=== PATIENT | female | born 1955 | race Caucasian/White ===

== ENCOUNTER 2021-12-13 10:16 | Outpatient (CLI) | payer MEDICARE, MEDICAID, SELFPAY ==
--- NOTE | 2021-12-13 10:45 | USCV_ITS ---
Yokasta Shields Age: 66 Gender: F : 1955 Exam Date: 12/13/2021 10:47 Ordering Phys: Breanne Clayton Technologist: Nathan Esquivel Exam Location: [facility] [place] Indication: Risk Factors: Previous Vascular Surgery: Right Brachial BP: / Left Brachial BP: / Right Left Velocity (cm/s) Spectral Plaque Velocity (cm/s) Spectral Plaque Syst/Diast Broadening Syst/Diast Broadening 87.10/ 23.20 Prox CCA 85.20 / 20.90 103.60/22.10 Hetro Mid CCA 94.20 / 20.90 Hetro 101.40/23.20 Hetro Distal CCA 97.10 / 17.90 Hetro 80.70/ 19.00 Hetro Prox ICA 219.60/ 60.60 Ezequiel 117.30/19.90 Hetro Mid ICA 176.10/ 34.10 Ezequiel 284.00/68.60 Distal ICA 88.90 / 23.70 Hetro 102.50 ECA 140.50 2.74 ICA/CCA 2.26 Antegrade Vertebral Antegrade 34.90/ 9.70 cm/s 51.10/ 9.70 cm/s Tri Subclavian Tri 149.5 153.8 0 0 FINDINGS Moderate heterogeneous plaques at the right bifurcation and distal internal carotid artery. Moderate to heavy heterogeneous plaques of the left bifurcation and proximal ICA Intimal thickening and minimal plaques in the common carotid arteries bilaterally Antegrade flow in the vertebral arteries bilaterally Normal Doppler velocities in the subclavian arteries bilaterally CONCLUSIONS Moderate to heavy heterogeneous plaques of the left bifurcation and proximal ICA with velocity elevations, consistent with 50 to 69% stenosis. Moderate heterogeneous plaques at the right bifurcation, suggesting less than 50% stenosis. Elevated velocity in the distal right internal carotid artery is suggestive of hemodynamically significant stenosis. No significant stenosis in the external carotid, subclavian and vertebral arteries, based on the above findings Consider CTA, to better evaluate the distal internal carotid artery on the right side. No similar previous studies are available for comparison Dr Nick Hoffman MD [facility] (Electronically Signed) Final Date: 14 December 2021 09:49 S
== END 2021-12-13 10:17 | disposition home or self-care (01) ==
LOC: RAD 10:19
PROVIDERS: PCP Registered Nurse; Visit Provider Registered Nurse
DX: Z93.0 Tracheostomy status (principal); Z85.21 Personal history of malignant neoplasm of larynx; I65.23 Occlusion and stenosis of bilateral carotid arteries
CPT/HCPCS: 93880

== ENCOUNTER 2022-01-12 10:48 | Outpatient (CLI) | payer MEDICARE, MEDICAID, SELFPAY ==
--- NOTE | 2022-01-12 11:02 | MM_ITS ---
WS: [id number] BILATERAL SCREENING 3D TOMOSYNTHESIS DIGITAL MAMMOGRAM WITH CAD HISTORY: SCREENING COMPARISON: 12/16/2018 and 02/14/2016 Bilateral CC and MLO views submitted. Computer aided detection analyzed. Breast composition: There are scattered areas of fibroglandular density. No suspicious masses, microc alcifications or architectural distortion. Benign intramammary lymph nodes. Extensive calcifications throughout each breast. These are benign calcifications. Some of these calcifications are rodlike and others are round. MM/[place] [id number] IMPRESSION: BI-RADS: 2-Benign FOLLOW UP: 1 Year Follow-up
== END 2022-01-12 10:49 | disposition home or self-care (01) ==
LOC: RADSHAW 10:54
PROVIDERS: PCP Registered Nurse; Visit Provider Registered Nurse
DX: Z12.31 Encounter for screening mammogram for malignant neoplasm of breast (principal)
CPT/HCPCS: 77063; 77067

== ENCOUNTER 2022-01-23 07:46 | Outpatient (CLI) | payer MEDICARE, MEDICAID, SELFPAY ==
--- NOTE | 2022-01-23 07:58 | FL_ITS ---
WS: [email or web address] ESOPHAGRAM TECHNIQUE: Double contrast examination was performed with thin and thick barium. Upright and [place] imag es were obtained. CLINICAL INFORMATION: LARYNX MALIGNANT NEOPLASM COMPARISON: None. FINDINGS: Segment of smooth stricturing at the level of the hypopharynx also seen on the neck CT. Pat ulous upstream dilatation of the pharynx. Segment of smooth stricturing extends over approximately 3. 0 cm. Minimal luminal diameter measures approximately 5 to 6 mm. Swallowing: Normal oropharyngeal phase. Patulous pharynx with pooling of contrast about the stricture . Esophagus: Mild esophageal dysmotility with slightly delayed emptying. Hypopharyngeal stricture descr ibed above. Gastroesophageal reflux: Small esophageal hiatal hernia. No reflux in the upright imaging. Supine katelyn ging not performed. Surgical clips in the neck from prior laryngectomy. Aortic calcification. Tracheostomy. Fluoroscopy time: 2.7 # of spot films: 149 FL/FL barium swallow [id number] IMPRESSION: 1. Segmental smooth stricturing at the level of the hypopharynx with patulous upstream dilatation of the pharynx. Pooling of barium in the pharynx. 2. Area of stricture extends over approximately 3 to 3.5 cm with a minimal lum inal diameter of 5 to 6 mm 3. Small esophageal hiatal hernia.
--- NOTE | 2022-01-23 07:59 | CT_ITS ---
WS: [id number] CT NECK TECHNIQUE: Contrast-enhanced CT of the neck with coronal and sagittal reformatted images. CLINICAL INFORMATION: MALIGNANT NEOPLASM OF LARYNX COMPARISON: None. DLP: 289.[address] scans at [facility] use at least one of these dose optimization techniques: automated e xposure control; mA and/or kV adjustment per patient size (includes targeted exams where dose is matc hed to clinical indication); or iterative reconstruction. FINDINGS:Patulous distention of the pharynx. Associated stricture in the hypopharynx just above the t horacic inlet. Stricture at approximately the C5-C6 level. This will be discussed on the barium swall ow. This is above the level of the tracheostomy. Prior postoperative changes total laryngectomy with tracheoesophageal puncture voice prosthesis. 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 Intracranial vas cular calcification. Normal parotid glands. Prior postoperative changes resection of the submandibul ar glands bilaterally. Normal posterior nasopharynx. Normal parapharyngeal fat. Mild mucosal thickeni ng paranasal sinuses. Mastoid air cells are well aerated. Cavernous carotid calcification. Tongue bas e appears normal. Aortic calcification visualized in the upper mediastinum. Calcification of the great vessel origins p artially evaluated with moderate stenosis at the innominate origin. Moderate stenosis at the LEFT com mon carotid artery origin. Moderate to severe stenosis just distal to the LEFT subclavian origin. CT/CT neck w con* [id number] IMPRESSION: 1. Patulous distention of the pharynx. Associated stricture in the hypopharynx just above the thoracic inlet. Stricture at approximately the C5-C6 level. Thi s will be discussed on the barium swallow. 2. Prior postoperative changes total laryngectomy with tracheoesophageal punct ure voice prosthesis 3. Calcification with stenosis involving the great vessels described above. 4. Prior postoperative changes RIGHT CEA. Moderate stenosis LEFT proximal ICA. This can be further evaluated with CTA. 5. 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
[2022-01-23 08:56] LABS: Blood Urea Nitrogen 6 mg/dL (8-23)
== END 2022-01-23 07:47 | disposition home or self-care (01) ==
LOC: RAD 07:49
PROVIDERS: PCP Registered Nurse; Visit Provider Specialist
DX: C32.9 Malignant neoplasm of larynx, unspecified (principal)
CPT/HCPCS: 70491; 74220; 82565; 84520; Q9967

== ENCOUNTER 2022-02-08 08:02 | Outpatient (CLI) | payer MEDICARE, MEDICAID, SELFPAY ==
--- NOTE | 2022-02-08 08:15 | USCV_ITS ---
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 Features suggestive of mild peripheral artery disease on the left side with possible occlusion of the posterior tibial artery 2. Features suggestive of moderate peripheral arterial disease in the right side 3. The abnormal PVR waveforms suggesting severe peripheral artery disease. Cannot exclude technical problems with the study Consider peripheral angiogram, if clinically indicated Dr Nick Hoffman MD [facility] (Electronically Signed) Final Date: 11 Feb 2022 21:40 S
--- NOTE | 2022-02-08 08:45 | USCV_ITS ---
Yokasta Shields Age: 66 Gender: F : 1955 Exam Date: 02/08/2022 08:39 Ordering Phys: Snow Giang MD ([email or web address]) Technologist: RODRÍGUEZ Exam Location: [facility] [place] Indication: Pure hypercholesterolemia BP: 152 / 80 HR: 71 Rhythm: Sinus Technical Quality: Adequate MEASUREMENTS (Male / Female) Normal Values 2D ECHO LV Diastolic Diameter PLAX 4.5 cm 4.2 - 5.9 / 3.9 - 5.3 cm LV Systolic Diameter PLAX 3.5 cm IVS Diastolic Thickness 0.9 cm 0.6 - 1.0 / 0.6 - 0.9 cm IVS Systolic Thickness 1.4 cm LVPW Diastolic Thickness 1.4 cm 0.6 - 1.0 / 0.6 - 0.9 cm LVPW Systolic Thickness 1.8 cm RV Chamber Size 2.3 cm LVOT Diameter 2.0 cm LV Ejection Fraction 2D Teich 47.6 % LV Ejection Fraction MOD 2C 46.9 % LV Ejection Fraction 2C AL 47.4 % LA Diameter 2.9 cm Aorta at Sinotubular Diameter 2.5 cm M-MODE Aortic Annulus Diameter 2.7 cm LA Ao Ratio MM 1.1 MV E Point Septal Separation 0.8 cm DOPPLER AV Peak Velocity 128.0 cm/s LVOT Peak Velocity 86.0 cm/s AV Area Cont Eq vti 2.1 cm squared AV Area Cont Eq pk 2.2 cm squared MV Area PHT 4.3 cm squared Mitral E to A Ratio 0.7 MV E' Velocity 56.0 cm/s Mitral E to MV E' Ratio 22.3 Mitral E to LV E' Lateral Ratio 20.5 Mitral E to LV E' Septal Ratio 24.3 TR Peak Velocity 261.0 cm/s TR Peak Gradient 27.2 mmHg PV Peak Velocity 93.0 cm/s RV Acceleration Time 0.1 s RV Ejection Time 0.4 s RV AcT/ET 0.2 FINDINGS Left Ventricle Normal left ventricular cavity size, wall thickness and low normal left ventricular systolic function. Left ventricular ejection fraction is estimated at 55 %. No regional wall motion abnormalities. Grade II diastolic dysfunction, moderately elevated filling pressures. Right Ventricle Normal right ventricular size and systolic function. RVSP could not be calculated due to incomplete tricuspid regurgitation velocity profile. Right Atrium Normal right atrial size. Left Atrium Mildly increased left atrial size. Mitral Valve Moderate mitral annular calcification. No mitral valve stenosis. Trace mitral valve regurgitation. Aortic Valve Mildly thickened trileaflet aortic valve. No aortic valve stenosis. No aortic valve regurgitation. Tricuspid Valve Structurally normal tricuspid valve. Trace tricuspid valve regurgitation. Pulmonic Valve Pulmonic valve not well visualized. No pulmonary valve stenosis. Trace pulmonary valve regurgitation. Pericardium No pericardial effusion. Aorta Normal size aortic root and proximal ascending aorta. CONCLUSIONS 1. This is a technically difficult study. Optison was used per protocol. 2. Normal left ventricular cavity size, wall thickness and low normal left ventricular systolic function. Left ventricular ejection fraction is estimated at 55 %. No regional wall motion abnormalities. Grade II diastolic dysfunction, moderately elevated filling pressures. 3. No prior similar studies to compare. Snow Giang MD (Electronically Signed) Final Date: 12 Feb 2022 17:32 S
[2022-02-08] MEDS: perflutren protein-a microsphr 0.22 mg/mL SDV 3 mL IV (09:28)
== END 2022-02-08 08:03 | disposition home or self-care (01) ==
LOC: RAD 08:04
PROVIDERS: PCP Registered Nurse; Visit Provider Internal Medicine Cardiovascular Disease
DX: E78.00 Pure hypercholesterolemia, unspecified (principal); I25.10 Atherosclerotic heart disease of native coronary artery without angina pectoris; Z95.5 Presence of coronary angioplasty implant and graft
CPT/HCPCS: 93923; C8929

== ENCOUNTER → 2022-02-20 13:53 | Outpatient (BNVA) | payer MEDICARE, MEDICAID, SELFPAY | PROVIDERS: PCP Registered Nurse; Visit Provider Internal Medicine Cardiovascular Disease | DX: I73.9 Peripheral vascular disease, unspecified (principal); I25.10 Atherosclerotic heart disease of native coronary artery without angina pectoris; M79.606 Pain in leg, unspecified; E78.00 Pure hypercholesterolemia, unspecified; E78.5 Hyperlipidemia, unspecified; I10 Essential (primary) hypertension; I65.29 Occlusion and stenosis of unspecified carotid artery; E11.9 Type 2 diabetes mellitus without complications; Z87.891 Personal history of nicotine dependence; Z79.84 Long term (current) use of oral hypoglycemic drugs | CPT/HCPCS: 99214 ==

== ENCOUNTER 2022-05-17 13:46 | Outpatient (CLI) | payer MEDICARE, MEDICAID, SELFPAY ==
--- NOTE | 2022-05-17 14:00 | CTR_ITS ---
PROCEDURE INFORMATION: Exam: CTA Abdominal Aorta and Bilateral Lower Extremities (Run-off) With Contrast Exam date and time: 05/17/2022 3:18 PM Age: 66 years old Clinical indication: Condition or disease; Peripheral vascular disease; Patient HX: HX of throat cancer; Additional info: Pvd TECHNIQUE: Imaging protocol: Computed tomographic angiography of the of the abdominal aorta, pelvis and bilateral lower extremities with contrast. 3D rendering (Not supervised by radiologist): MIP and/or 3D reconstructed images were created by the technologist. Radiation optimization: All CT scans at this facility use at least one of these dose optimization techniques: automated exposure control; mA and/or kV adjustment per patient size (includes targeted exams where dose is matched to clinical indication); or iterative reconstruction. Contrast material: OMNI 350; Contrast volume: 95 ml; Contrast route: INTRAVENOUS (IV); COMPARISON: No relevant prior studies available. RADIATION DOSE METRICS: Total DLP (mGy-cm): 929.26 FINDINGS: Aorta: Poor contrast opacification of the arterial system. Prominent atherosclerotic disease in the abdominal aorta which is nonaneurysmal. Significant atherosclerotic disease in the distal abdominal aorta causing moderate to severe stenosis. Celiac trunk and mesenteric arteries: Atherosclerotic disease at the origin of the celiac trunk causing short segment moderate to severe stenosis. Atherosclerotic disease at the origin and in the proximal superior mesenteric artery causing moderate stenosis. Renal arteries: Diminutive right upper and lower pole renal arteries with probable stenosis at the origin. The inferior mesenteric artery is patent. Right iliac arteries: No occlusion or significant stenosis. Right femoral/popliteal arteries: Multifocal atherosclerotic disease in the mid right SFA causing [id number] stenosis (series 6, image 253 and 261). Calcified atherosclerotic disease in the right above knee popliteal artery causing short segment severe stenosis versus occlusion (series 6, image 305). Additional multifocal moderate stenosis in the right above knee popliteal artery. Right infrapopliteal arteries: Limited evaluation of the below knee arteries due to poor contrast opacification. Probable multifocal stenosis in the right posterior tibial artery. Probable primary runoff by the right anterior tibial artery. Left iliac arteries: No occlusion or significant stenosis. Left femoral/popliteal arteries: Occlusion of the proximal left superficial femoral artery with distal reconstitution in the left above knee popliteal artery. Multifocal atherosclerotic disease in the left above knee popliteal artery causing probable moderate stenosis. Left infrapopliteal arteries: Poor contrast opacification of the below knee arteries of the left lower extremity. Probable multifocal stenosis in the left posterior tibial artery. Probable primary runoff by the left anterior tibial artery. Lungs: The visualized lung bases demonstrate no focal airspace opacification or pleural effusion. Heart: Coronary artery calcifications noted. Liver: The liver is normal in size and contour. Diaphragm: Moderate hiatal hernia. Gallbladder and bile ducts: The gallbladder is surgically absent. Pancreas: The pancreas appears normal. Spleen: The spleen appears normal. Adrenal glands: Normal. No mass. Kidneys and ureters: Scarring and atrophy in the upper pole the right kidney. Mildly prominent right-sided extrarenal pelvis. No renal or ureteral stones identified. Kidneys enhance symmetrically. No signs of urinary obstruction. Stomach and bowel: Irregularity along the anterior margin of the stomach extending through the anterior abdominal wall hernia possibly related to prior percutaneous gastrostomy. The small bowel loops are not abnormally dilated. The large bowel loops are not abnormally dilated. Colonic diverticulosis without signs of acute diverticulitis. Appendix: The appendix appears normal. Urinary bladder: Unremarkable. No mass. Reproductive: The uterus is surgically absent. Intraperitoneal space: No ascites. No significant fluid collection. Lymph nodes: No abdominal or pelvic lymphadenopathy. Bones/joints: Degenerative disc disease at L5-S1. Soft tissues: Postsurgical changes in the anterior abdominal wall. It anterior abdominal wall mesh noted. 5.3 cm fat containing supraumbilical hernia. CT/CT angio abd aorta runof [id number] IMPRESSION: 1. Poor contrast opacification of the arterial system, limiting evaluation. 2. Significant atherosclerotic disease in the distal abdominal aorta causing moderate to severe stenosis. 3. Stenosis at the origin of the celiac, SMA, and renal arteries. 4. Short segment severe stenosis versus occlusion in the right above knee popliteal artery. 5. Occlusion of the proximal left superficial femoral artery with distal reconstitution in the left above knee popliteal artery. 6. Poor contrast opacification of the below knee arteries of the lower extremities. Probable multifocal stenosis in the right and left posterior tibial arteries. Probable primary runoff by the anterior tibial artery bilaterally. 7. Moderate hiatal hernia. 8. Colonic diverticulosis without signs of acute diverticulitis.
[2022-05-17 15:09] LABS: Blood Urea Nitrogen 9 mg/dL (8-23)
[2022-05-17] MEDS: iohexol 350 mg/mL 100 mL Btl IV (15:32)
== END 2022-05-17 13:47 | disposition home or self-care (01) ==
LOC: RAD 13:47
PROVIDERS: PCP Registered Nurse; Visit Provider Internal Medicine Cardiovascular Disease
DX: I73.9 Peripheral vascular disease, unspecified (principal); R68.89 Other general symptoms and signs; I77.1 Stricture of artery; K44.9 Diaphragmatic hernia without obstruction or gangrene; K57.90 Diverticulosis of intestine, part unspecified, without perforation or abscess without bleeding
CPT/HCPCS: 75635; 82565; 84520

== ENCOUNTER 2022-05-21 09:56 | Outpatient (CLI) | payer MEDICARE, MEDICAID, SELFPAY ==
--- NOTE | 2022-05-21 10:12 | CT_ITS ---
WS: [email or web address] CTA NECK TECHNIQUE: Contrast enhanced CTA of the neck with coronal and sagittal reformatted images and maximum intensity projection (MIP) images. NASCET criteria utilized. CLINICAL INFORMATION: BILATERAL CAROTID ARTERY STENOSIS COMPARISON: Ultrasound December 13, 2021 DLP: 270.[address] scans at [facility] use at least one of these dose optimization techniques: automated e xposure control; mA and/or kV adjustment per patient size (includes targeted exams where dose is matc hed to clinical indication); or iterative reconstruction. FINDINGS:Prior postoperative changes total laryngectomy with tracheoesophageal puncture voice prosthe sis. Prior postoperative changes resection of the submandibular glands bilaterally. LEFT dominant vertebral artery. Smaller but patent RIGHT vertebral artery. Mild stenosis of the LEFT subclavian artery origin. Mild stenosis in the LEFT mid subclavian artery. Mild stenosis at the LEFT common carotid artery and innominate artery origins. RIGHT subclavian artery is patent. RIGHT: Prior postoperative changes RIGHT CEA. Eccentric calcified plaque in the distal RIGHT common c arotid artery with approximately 50% stenosis. No significant RIGHT ICA stenosis. RIGHT ICA is patent to the skull base. Distal RIGHT ICA is patent. LEFT: Mild stenosis LEFT common carotid artery origin. LEFT common carotid artery is patent. Calcifie d atheromatous plaque LEFT carotid bulb extending into the ICA with stenosis measuring approximately 60-65%. IMPRESSION: 1. Prior postoperative changes RIGHT CEA. Eccentric calcified plaque in the distal RIGHT common fontenot tid artery with approximately 50% stenosis. No significant RIGHT ICA stenosis. 2. LEFT ICA stenosis 60-65%. 3. LEFT dominant vertebral artery. Smaller but patent RIGHT vertebral artery.
[2022-05-21] MEDS: iohexol 350 mg/mL 100 mL Btl IV (10:41)
== END 2022-05-21 09:57 | disposition home or self-care (01) ==
LOC: RAD 09:57
PROVIDERS: PCP Registered Nurse; Visit Provider Internal Medicine Cardiovascular Disease
DX: I65.23 Occlusion and stenosis of bilateral carotid arteries (principal)
CPT/HCPCS: 70498

== ENCOUNTER 2022-06-08 15:11 | Outpatient (CLI) | payer MEDICARE, MEDICAID, SELFPAY ==
--- NOTE | 2022-06-08 | XR_ITS ---
WS: [email or web address] Chest 2 views, 06/08/2022 Clinical Data: ESOPHAGEAL OBSTRUCTION/PERSONAL HX OF MALIGNANT NEOPLASM Comparison: None. Findings: No nodules, masses or effusions are seen. The heart is enlarged. The pulmonary vascularity is not increased. No pneumonia or pneumothorax is seen. The aortic arch and descending thoracic aorta show calcification and tortuosity. There is a coronary artery stent. There are clips in the neck fro m laryngeal surgery. XR/XR chest 2V* [id number] Impression: Atherosclerosis and cardiomegaly.
== END 2022-06-08 15:12 | disposition home or self-care (01) ==
LOC: RAD 15:13
PROVIDERS: PCP Registered Nurse; Visit Provider Specialist
DX: K22.2 Esophageal obstruction (principal); I51.7 Cardiomegaly; I70.90 Unspecified atherosclerosis
CPT/HCPCS: 71046

== ENCOUNTER 2022-07-09 10:36 | Outpatient (CLI) | payer MEDICARE, MEDICAID, SELFPAY ==
--- NOTE | 2022-07-09 10:45 | FL_ITS ---
WS: [email or web address] Exam: FL barium swallow [id number] Date/Time of Exam: 07/09/2022 10:50 AM Reason For Exam: OTHER DYSPHAGIA/PERSON HX OF MALIGNANT NEOPLASM OF LARYNX Fluoroscopy time: 2min [id number] minutes # of spot films: 15 Comparison 01/23/2022. Swallowing function at the level of the oropharynx was normal. Again noted is smooth stricturing of t he cervical esophagus from approximately C5-C7. The remaining esophagus is patent with normal motilit y. Intraluminal esophageal filling defect at approximately the level of T3 is secondary to tracheoeso phageal puncture voice prosthesis. Small hiatal hernia noted. No reflux observed during fluoroscopy. Postoperative changes in the neck secondary to laryngectomy. Patulous dilatation of the pharynx. This is unchanged. FL/FL barium swallow [id number] IMPRESSION: 1. Smooth stricturing of the cervical esophagus from approximately C5-C7. Maxim al luminal AP diameter about 4 mm. This extends for a length of about 2 cm. 2. Grossly normal esophageal motility. No sign of the intraluminal esophageal m ass. 3. Intraluminal filling defect noted at approximately the level of T3 secondary to tracheoesophageal puncture voice prosthesis.
== END 2022-07-09 10:37 | disposition home or self-care (01) ==
PROVIDERS: PCP Registered Nurse; Visit Provider Specialist
DX: R13.19 Other dysphagia (principal); Z85.21 Personal history of malignant neoplasm of larynx
CPT/HCPCS: 74220

== ENCOUNTER 2022-07-12 08:34 | Outpatient (CLI) | payer MEDICARE, MEDICAID, SELFPAY ==
--- NOTE | 2022-07-12 08:42 | CT_ITS ---
WS: [email or web address] CT NECK WITH CONTRAST HISTORY: OTHER DYSPHAGIA/PERSONAL HX OF MALIGNANT NEOPLASM OF LARYNX TECHNIQUE: Contiguous 5 mm axial images are performed through the neck with intravenous contrast. Sag ittal and coronal reformats are also submitted. All CT scans at [facility] use at least one o f these dose optimization techniques: automated exposure control; mA and/or kV adjustment per patient size (includes targeted exams where dose is matched to clinical indication); or iterative reconstruc tion. CONTRAST: CONTRAST: Omnipaque 350, 95 mL. DLP: 265.06 mGy.cm COMPARISON: 01/23/2022. Prior barium swallow 07/09/2022. Patient is status post total laryngectomy. Also noted is a tracheoesophageal puncture voice prosthesi s which is unchanged in its position. As noted on a prior CT there is a high-grade stricture beginning in the region of the hypopharynx ext ending over a length of at least 3.5 cm. There is mild wall thickening but no progression since the p rior CT. These findings were also seen on a recent barium swallow examination. No recurrent enhancing mass is noted at the stricture site. The position of the voice prosthesis similar to the prior study . No new or enlarging cervical chain lymph nodes. No abnormal enhancement of the tongue base. Submandibular glands are absent. May have been surgically removed. Normal parotid glands. Parapharyngeal fat and the parapharyngeal spaces negative. Stenosis and calcifications noted involving the cervical carotid arteries. At least 50% stenosis bila terally at the bifurcations of the carotid arteries. Mild atherosclerotic disease aortic arch. Lung a pices are clear. Additional plaque, calcification and intimal thickening at the origin of the great v essels. At least moderate stenoses with no progression. Additional calcified plaque through the godfrey nous carotid arteries. Prior RIGHT carotid endarterectomy. Moderate degenerative disc disease throughout the cervical spine. No destructive bone lesions. Visualized portions of the skull base demonstrate no abnormalities. Orbits and globes are within norm al limits. No soft tissue masses. Visualized paranasal sinuses and mastoid air cells are normal. Lung apices are clear. CT/CT neck w con* [id number] IMPRESSION: 1. Status post total laryngectomy. No recurrent mass or abnormal enhancement o r lymphadenopathy. 2. 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 Stricture exte nds over a length of at least 3.5 cm. This was also noted on a recent barium sw allow examination of 07/09/2022. 3. Moderate bilateral cervical carotid artery stenoses.
[2022-07-12] MEDS: iohexol 350 mg/mL 100 mL Btl IV (09:18)
== END 2022-07-12 08:35 | disposition home or self-care (01) ==
LOC: RAD 08:34
PROVIDERS: PCP Registered Nurse; Visit Provider Specialist
DX: R13.19 Other dysphagia (principal); Z85.21 Personal history of malignant neoplasm of larynx; Z90.02 Acquired absence of larynx; I65.23 Occlusion and stenosis of bilateral carotid arteries
CPT/HCPCS: 70491

== ENCOUNTER → 2022-08-21 14:38 | Outpatient (BNVA) | payer MEDICARE, MEDICAID, SELFPAY | PROVIDERS: PCP Registered Nurse; Visit Provider Internal Medicine Cardiovascular Disease | DX: I25.10 Atherosclerotic heart disease of native coronary artery without angina pectoris (principal); M79.606 Pain in leg, unspecified; I73.9 Peripheral vascular disease, unspecified; E78.5 Hyperlipidemia, unspecified; I10 Essential (primary) hypertension; I65.29 Occlusion and stenosis of unspecified carotid artery; E11.9 Type 2 diabetes mellitus without complications; Z79.84 Long term (current) use of oral hypoglycemic drugs; Z87.891 Personal history of nicotine dependence | CPT/HCPCS: 99214 ==

== ENCOUNTER 2023-02-15 12:32 | Outpatient (CLI) | payer MEDICARE, MEDICAID, SELFPAY ==
--- NOTE | 2023-02-15 13:07 | MM_ITS ---
WS: [email or web address] BILATERAL 3D TOMOSYNTHESIS DIGITAL SCREENING MAMMOGRAPHY WITH CAD CLINICAL INFORMATION: SCREENING HISTORY: Screening mammogram. No current complaints. COMPARISON: 2021 TECHNIQUE: Bilateral CC and MLO views. FINDINGS: Scattered fibroglandular densities bilaterally. No suspicious focal mass, asymmetry, calcifications, or architectural distortion. No evidence of malignancy. Punctate calcifications. Secretory calcificat ions. Vascular calcification. MM/[place] [id number] IMPRESSION: BI-RADS: 2-Benign FOLLOW UP: 1 Year Follow-up Recommend return to annual screening mammography.
== END 2023-02-15 12:33 | disposition home or self-care (01) ==
LOC: RAD 12:36
PROVIDERS: PCP Registered Nurse; Visit Provider Family Medicine
DX: Z12.31 Encounter for screening mammogram for malignant neoplasm of breast (principal)
CPT/HCPCS: 77063; 77067

== ENCOUNTER → 2023-05-21 14:59 | Outpatient (BNVA) | payer MEDICARE, MEDICAID, SELFPAY | PROVIDERS: PCP Registered Nurse; Visit Provider Internal Medicine Cardiovascular Disease | DX: R07.9 Chest pain, unspecified (principal); I65.23 Occlusion and stenosis of bilateral carotid arteries; I25.10 Atherosclerotic heart disease of native coronary artery without angina pectoris; I73.9 Peripheral vascular disease, unspecified; E78.5 Hyperlipidemia, unspecified; I10 Essential (primary) hypertension; E11.9 Type 2 diabetes mellitus without complications; Z87.891 Personal history of nicotine dependence; R94.31 Abnormal electrocardiogram [ECG] [EKG] | CPT/HCPCS: 93005; 99214 ==

== ENCOUNTER 2023-06-03 09:46 | Outpatient (CLI) | payer MEDICARE, MEDICAID, SELFPAY ==
--- NOTE | 2023-06-03 10:45 | USCV_ITS ---
Yokasta Shields Age: 67 Gender: F : 1955 Exam Date: 06/03/2023 10:00 Ordering Phys: Snow Giang MD ([email or web address]) Technologist: REX Exam Location: [facility] [place] Indication: Stenosis Risk Factors: Previous Vascular Surgery: Right Brachial BP: / Left Brachial BP: / Right Left Velocity (cm/s) Spectral Plaque Velocity (cm/s) Spectral Plaque Syst/Diast Broadening Syst/Diast Broadening 94.80/ 29.80 Prox CCA 120.90/ 30.20 110.30/30.90 Mid CCA 93.00 / 26.10 100.40/31.00 Distal CCA 101.30/ 27.20 65.60/ 20.80 Prox ICA 129.90/ 34.20 64.40/ 19.00 Mid ICA 216.60/ 60.20 103.60/37.50 Distal ICA 149.60/ 38.50 106.90 ECA 217.30 0.94 ICA/CCA 1.79 Antegrade Vertebral Antegrade 19.40/ 8.50 cm/s 74.60/ 22.50 cm/s Tri Subclavian Tri 176.9 140.6 0 0 FINDINGS Comp /12/05 CONCLUSIONS Right ICA stenosis <50%. Moderate atheromatous plaque right carotid bulb/ICA. Left ICA stenosis 50-69%. Moderate atheromatous plaque left carotid bulb/ICA. Velocities similar to previous. Intimal thickening in the common carotid arteries and internal carotid arteries bilaterally. Normal antegrade Doppler flow noted in the right vertebral artery. Normal antegrade Doppler flow noted in the left vertebral artery. Shane Chávez MD (Electronically Signed) Final Date: 03 June 2023 11:44 S
== END 2023-06-03 09:47 | disposition home or self-care (01) ==
LOC: RAD 09:48
PROVIDERS: PCP Registered Nurse; Visit Provider Internal Medicine Cardiovascular Disease
DX: I65.23 Occlusion and stenosis of bilateral carotid arteries (principal)
CPT/HCPCS: 93880

== ENCOUNTER 2023-06-10 07:40 | Outpatient (CLI) | payer MEDICARE, MEDICAID, SELFPAY ==
[2023-06-10 08:17] VITALS: BMI 43.9
--- NOTE | 2023-06-10 09:01 | NMCV_ITS ---
NM tatiana perf SPECT r/s* [id number] Yokasta Shields Age: 67 Gender: F : 1955 Exam Date: 06/10/2023 09:01 Ordering Phys: Snow Giang MD ([email or web address]) Technologist: STEVE Vallejo Exam Location: [facility] Indications: CHEST PAIN, SHORTNESS OF BREATH, ATHEROSCLEROTIC HEART DISEASE STRESS TEST [facility] IMAGE PROTOCOL Rest/Stress 1 Lexiscan Day Radiopharmaceutical Dose (mCi) Administration Site Administered by Rest: Tc-99m 10.6 IV STEVE Olivares Sestamibi Stress:Tc-99m 32.4 IV STEVE Vallejo Sestamibi Rest: 10-Jun-2023 60 Discovery 630 Stress: 10-Jun-2023 30 Discovery 630 0.4mg Lexiscan. Supine position only as patient was unable to lay prone. SPECT RESULTS Technical Quality: Excellent Raw Data Analysis: Normal Image Corrections: No attenuation or motion correction applied Summed Stress Score: 5 Summed Rest Score: 0 Summed Difference Score: 5 PERFUSION FINDINGS Small sized perfusion abnormality of moderate severity of mid to apical inferior and mid inferolateral box on stress images. FUNCTIONAL RESULTS (calculated via Gated SPECT) Stress Image LV EF (%): 61 Stress EDV (mL):75 TID: 0.85 Stress ESV (mL):29 FUNCTIONAL FINDINGS: The left ventricle is normal in size. Transient Ischemia Dilatation of 0.85. The left ventricular ejection fraction is normal with a value of 61%. Possible mild hypokinesis of basal inferior wall. Normal end-diastolic and end-systolic volume. IMPRESSIONS 1. Small sized reversible perfusion abnormality of moderate severity of mid to apical inferior and mid inferolateral box. 2. This may represent small area of ischemia in right coronary artery/circumflex artery territory. 3. The left ventricular ejection fraction is normal with a value of 61%. Possible mild hypokinesis of basal inferior wall. 4. EKG portion of the study will be reported separately. Snow Giang MD (Electronically Signed) Final Date: 14 June 2023 12:49 S
--- NOTE | 2023-06-10 09:01 | ECG_ITS ---
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 Interpretive Statements NAME OF STUDY: LEXISCAN SESTAMIBI STRESS TEST INDICATION: Chest Pain PROCEDURE: At the baseline, the blood pressure was 194/82 mmHg, oxygen saturation 95% with a heart rate of 79 bpm. The electrocardiogram showed sinus rhythm, normal axis with nonspecific ST depression in lead III and aVF. The Lexiscan was infused over a period of 20 seconds. A total of 0.4 milligrams of Lexiscan was infused. The stress phase was continued for a total of 5 minutes. Heart rate at the end of the stress phase was 96 bpm, oxygen saturation 94% with a blood pressure 157/73 mmHg. The EKG at the peak infusion revealed no significant ST-T wave changes. Sestamibi was injected 20 seconds after the Lexiscan infusion. Blood pressure at the end of the recovery phase was 165/70 mmHg, oxygen saturation 94% with a heart rate of 95 beats per minute. CONCLUSION: 1. Normal EKG response to LexiScan infusion. 2. No LexiScan induced chest pain or cardiac arrhythmia. 3. Normal blood pressure and heart rate response. 4. Sestamibi/sestamibi perfusion scan pending; see separate report. Electronically Signed On 06-14-2023 13:34:14 CDT by Snow Giang M.D. [id number]
[2023-06-10] MEDS: regadenoson 0.4 Mg/5 ml Syringe IVP (09:49)
[2023-06-10 10:20] VITALS: BP 165/70; PULSE 95
== END 2023-06-10 07:41 | disposition home or self-care (01) ==
PROVIDERS: PCP Registered Nurse; Visit Provider Internal Medicine Cardiovascular Disease
DX: R07.9 Chest pain, unspecified (principal); R06.02 Shortness of breath; I25.10 Atherosclerotic heart disease of native coronary artery without angina pectoris
CPT/HCPCS: 36415; 78452; 93017; 96374; A9500; J2785

== ENCOUNTER → 2023-09-03 13:37 | Outpatient (BNVA) | payer MEDICARE, MEDICAID, SELFPAY | PROVIDERS: PCP Registered Nurse; Visit Provider Internal Medicine Cardiovascular Disease | DX: R07.9 Chest pain, unspecified (principal) | CPT/HCPCS: 99214 ==

== ENCOUNTER 2024-08-14 22:23 | Inpatient (IN) | payer MEDICARE, MEDICAID, SELFPAY ==
[2024-08-14 22:44] VITALS: BP 181/76; PULSE 81; RESP 19; TEMP 36.9; O2SAT 93
[2024-08-14 22:45] VITALS: BP 181/76; PULSE 80; RESP 29; O2SAT 92
[2024-08-14 23:00] VITALS: BP 181/76; PULSE 80; RESP 21; O2SAT 92
[2024-08-14 23:15] VITALS: PULSE 79
[2024-08-14] MEDS: metoprolol tartrate 1 mg/1 mL SDV 5 mL 5 MG IVP ×2 (23:16→23:22)
[2024-08-14] MEDS: heparin drip 25,000 UNIT/500 ML PREMIX 25 UNIT IV (23:19)
[2024-08-14] MEDS: nitroglycerin drip 50 MG/250 ML PREMIX IV (23:25)
[2024-08-14 23:30] VITALS: BP 167/83; PULSE 71; RESP 22; O2SAT 92
[2024-08-14 23:35] LABS: Troponin(5th) Baseline 8 ng/L (0-10)
[2024-08-15] VITALS (41 sets, daily range): BP systolic 82–208; BP diastolic 41–89; PULSE 68–79; RESP 15–28; TEMP 36.8–37.2; O2SAT 87–97
--- NOTE | 2024-08-15 00:07 | PM.HP ---
Providers/Chief Complaint Admitting Physician: Shane Barrow MD Primary Care Provider: Breanne Clayton Chief Complaint: Unstable Angina History of Present Illness Yokasta Shields is a 69 year old female with history of tobacco use stopped 8 years ago when she had ENT surgery for cancer and ended up with a trach. She has had multiple cardiac stents numbering 4 but last was 7 years ago she has never had a CABG. In the last months she has had postprandial pain some nausea and diarrhea she has had exertional chest pain relieved by rest or nitroglycerin. Her systems architect is Dr. Giang and has not seen a systems architect for some time. Today she was seen at the [place] emergency department and transferred here for chest pain rule out PA and unstable angina. Blood pressure initially good there became high also presenting a problem. Past medical history includes asthma, cervical cancer 2001 coronary artery disease, depression, diabetes, COPD, GERD, 4 cardiac stents, hypertension, hyperlipidemia, hypothyroidism, peripheral artery disease, head and neck cancer Past surgical history hysterectomy, cholecystectomy, carotid stent, throat surgery, colonoscopy 2021, tracheostomy with skin graft, EGD with dilation of the esophagus, Family history positive for coronary disease Social history lives with her brother. She wants full code she does not drink alcohol and quit smoking 8 years ago Allergies doxycycline Review of Systems Narrative: Difficult to obtain due to patient cannot talk and has to type out on her phone her communication She had chest pain on arrival which was worse but now down to 3/10 Medications/Allergies Home Medications Medication Instructions Recorded Confirmed Last Taken Type albuterol sulfate 2.5 mg/3 mL 2.5 mg inhalation Q4H PRN 11/21/21 Unknown History (0.083 %) solution for nebulization albuterol sulfate 90 mcg/actuation 2 puff inhalation Q6H PRN 11/21/21 Unknown History aerosol inhaler aspirin 81 mg tablet,delayed 81 mg PO DAILY 11/21/21 Unknown History release (Adult Low Dose Aspirin) carvedilol 6.25 mg tablet 6.25 mg PO BID 11/21/21 Unknown History cyclobenzaprine 5 mg tablet 5 mg PO DAILY PRN 11/21/21 Unknown History dexlansoprazole 60 mg 60 mg PO DAILY 11/21/21 Unknown History capsule,biphase delayed release (Dexilant) diclofenac sodium 1 % topical gel 2 g topical QID 11/21/21 Unknown History (Arthritis Pain (diclofenac)) fluoxetine 20 mg/5 mL (4 mg/mL) 20 mg PO DAILY 11/21/21 Unknown History oral solution gabapentin 100 mg capsule 100 mg PO DAILY 11/21/21 Unknown History glimepiride 2 mg tablet 2 mg PO DAILY 11/21/21 Unknown History hydroxyzine HCl 10 mg tablet 10 mg PO BID PRN 11/21/21 Unknown History ipratropium bromide 0.02 % 0.5 mg inhalation Q4H PRN 11/21/21 Unknown History solution for inhalation levothyroxine 112 mcg capsule 112 mcg PO DAILY 11/21/21 Unknown History meloxicam 15 mg tablet 15 mg PO DAILY 11/21/21 Unknown History montelukast 10 mg tablet 10 mg PO DAILY 11/21/21 Unknown History therapeutic multivitamin 5 ml PO DAILY 11/21/21 Unknown History atorvastatin 20 mg tablet 30 mg (1.5 x 20 mg) PO DAILY #135 03/14/22 Unknown Rx tabs cilostazol 100 mg tablet 100 mg PO BID #180 tabs 05/09/23 Unknown Rx dulaglutide 1.5 mg/0.5 mL mg SUBCUT 05/21/23 Unknown History subcutaneous pen injector (Trulicity) nitroglycerin 0.4 mg sublingual 0.4 mg sublingual Q5M PRN chest 06/04/23 Unknown Rx tablet pain #25 tabs isosorbide mononitrate 30 mg 30 mg PO DAILY #90 tabs 09/03/23 09/03/23 Unknown Rx tablet,extended release 24 hr losartan 25 mg tablet See Rx Instructions .Route 12/11/23 Unknown Rx .COMPLEX #90 tabs Allergies Allergy/AdvReac Type Severity Reaction Status Date / Time doxycycline Allergy Unknown unknown Verified 09/03/23 13:52 PFSH Acute PFSH: Medical History CAD (coronary artery disease) Diabetes mellitus HTN (hypertension) Hypercholesterolemia PAD (peripheral artery disease) Throat cancer Surgical History H/O hernia repair S/P coronary artery stent placement Social History Smoking and tobacco/nicotine status: former use of tobacco/nicotine Vitals/I&O/Wt Last Vital Signs Temp 98.4 F 08/14/24 22:44 Pulse 81 08/14/24 22:44 Resp 19 H 08/14/24 22:44 BP 181/76 08/14/24 22:44 Pulse Ox 93 08/14/24 22:44 Weight last 48 hrs Weight 88.224 kg Weight 88.042 kg Physical Exam Narrative: General Well-developed obese chronically ill-appearing female in no acute cardiopulmonary distress She is alert and pleasant and gives what appears to be correct history Neck she has a tracheostomy CV regular rate and rhythm Lungs poor air movement prolonged expiratory phase trace wheezes and trace basilar crackles Abdomen positive bowel sounds soft obese nontender Calves no tenderness cords or pretibial edema Mood and affect normal Data Other Labs: Labs from [place] white count 5.9 hematocrit 36 platelets 247 MCV 90 Sodium 135 potassium 3.7 BUN 6 creatinine 0.66 glucose 161 AST 10 bilirubin 0.3 D-dimer 0.58 normal for her age less than 0.60 Troponin 7 twice with no change CTA Chest: Radiologist's impression: No pneumonia pneumothorax, PE or dissection seen on CTA done at [place] A&P Assessment and plan (1) Chest pain: Cardiac enzymes essentially ruled out before she was sent here with 2 negative enzymes. She does have history and extensive vascular disease now with exertional chest pain consistent with unstable angina. I think she would benefit from noninvasive stress testing. (2) CAD (coronary artery disease): Last stent 7 years ago and patient with extensive vascular disease and a positive family history Will order high-sensitivity C-reactive protein and lipoprotein a (3) PAD (peripheral artery disease): Stable (4) HTN (hypertension): Losartan continued carvedilol additional dose ordered for tonight. If blood pressure is elevated would suggest increasing those medications Attestations Medical Necessity Statement*: Patient with hypertension and unstable angina. Will admit for plan noninvasive stress testing such as Lexiscan nuclear Coding Level of Care Code Acute Code for [facility] Diagnoses Chest pain R07.9 CAD (coronary artery disease) I25.10 PAD (peripheral artery disease) I73.9 HTN (hypertension) I10 Time Spent (min) 75
--- NOTE | 2024-08-15 00:51 | ECG_ITS ---
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 Measurements Intervals [place] Rate: 71 P: 60 MA: 190 QRS: 0 QRSD: 90 T: -2 QT: 412 QTc: 448 Interpretive Statements SINUS RHYTHM Compared to ECG 05/21/2023 15:02:57 Left ventricular hypertrophy no longer present T-wave abnormality no longer present Electronically Signed On 08-15-2024 13:47:36 CDT by Sheyla Louis M.D. [id number]
[2024-08-15] MEDS: ipratropium 0.5 mg/2.5 mL Neb INHALATION (00:59)
[2024-08-15] MEDS: albuterol 2.5 mg/3 mL Neb INHALATION ×2 (00:59→21:00)
[2024-08-15 01:49] LABS: Troponin 5 2HR 8.31 ng/L (0-10); Troponin 5 2HR Delta 0.31 ABS# (0-10)
[2024-08-15 01:51] LABS: Chol HDL Ratio 5.17 mg/dL (0.0-4.40); Cholesterol 150 mg/dL (0-200); HDL Cholesterol 29 mg/dL (60-100); LDL Cholesterol Calculated 95 mg/dL (50-129); LDL HDL Ratio 3.28 RATIO (0.00-3.22); Triglycerides 131 mg/dL (0-150)
[2024-08-15] MEDS: losartan 50 mg Tablet PO (01:53)
[2024-08-15 02:25] LABS: C Reactive Protein 16.2 mg/L (0.0-4.9)
[2024-08-15] MEDS: acetaminophen 325 mg Tablet 650 MG PO (04:28)
--- NOTE | 2024-08-15 04:55 | ECG_ITS ---
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 Measurements Intervals [place] Rate: 71 P: 49 TX: 204 QRS: -2 QRSD: 76 T: -1 QT: 408 QTc: 445 Interpretive Statements SINUS RHYTHM Compared to ECG 08/15/2024 00:51:02 No significant changes Electronically Signed On 08-15-2024 13:47:32 CDT by Sheyla Louis M.D. [id number]
[2024-08-15 05:54] LABS: Partial Thromboplastin Time 77.1 SECONDS (23.9-36.7)
[2024-08-15] MEDS: levothyroxine 112 mcg Tablet PO (06:12)
--- NOTE | 2024-08-15 08:27 | USCV_ITS ---
Yokasta Shields Age: 69 Gender: F : 1955 Exam Date: 08/15/2024 12:00 Ordering Phys: Gurpreet Benavides MD Technologist: Dajuan Ansari Exam Location: [facility] Indication: chest pain BP: 85 / 44 HR: 70 Rhythm: Sinus Technical Quality: Adequate MEASUREMENTS (Male / Female) Normal Values 2D ECHO LV Diastolic Diameter PLAX 5.1 cm 4.2 - 5.9 / 3.9 - 5.3 cm IVS Diastolic Thickness 1.0 cm 0.6 - 1.0 / 0.6 - 0.9 cm IVS Systolic Thickness 1.8 cm LVPW Diastolic Thickness 1.6 cm 0.6 - 1.0 / 0.6 - 0.9 cm LVPW Systolic Thickness 1.7 cm LVOT Diameter 2.1 cm LV Ejection Fraction 2D Teich 75.1 % LV Ejection Fraction MOD 4C 54.1 % LV Ejection Fraction MOD 2C 57.2 % LV Ejection Fraction 2C AL 59.5 % LA Diameter 3.9 cm RA Systolic Volume 4C AL 26.1 ml RA Systolic Volume 4C MOD 26.7 ml LA Sys Volume AL 40.4 cm cubed LA Sys Volume Index AL 21.0 cm cubed/m squared Aorta at Sinotubular Diameter 1.7 cm IVC Diameter 1.6 cm M-MODE LA Ao Ratio MM 1.3 AV Cusp Separation MM 1.5 cm DOPPLER AV Peak Velocity 138.0 cm/s LVOT Peak Velocity 74.0 cm/s AV Area Cont Eq vti 2.3 cm squared AV Area Cont Eq pk 1.9 cm squared MV Peak Velocity 151.0 cm/s MV Area PHT 4.3 cm squared Mitral E to A Ratio 0.7 TV Peak Velocity 215.0 cm/s TR Peak Velocity 242.0 cm/s TR Peak Gradient 23.4 mmHg TR Mean Velocity 179.0 cm/s TR Mean Gradient 14.4 mmHg TR Velocity Time Integral 51.9 cm PV Peak Velocity 90.0 cm/s RV Ejection Time 0.3 s FINDINGS Left Ventricle Normal left ventricular size, systolic function and wall thickness, with no regional wall motion abnormalities. Estimated LVEF normal 65%. Right Ventricle Normal right ventricular size and systolic function. Right Atrium Normal right atrial size. Left Atrium Mildly increased left atrial size. Mitral Valve Thickened mitral valve. Mild mitral valve regurgitation. Aortic Valve Thickened aortic valve. No aortic valve stenosis. Tricuspid Valve Structurally normal tricuspid valve. Trace tricuspid valve regurgitation. Pulmonic Valve Pulmonic valve not well visualized. Trace pulmonary valve regurgitation. Pericardium No pericardial effusion. Aorta Normal size aortic root and proximal ascending aorta. IVC Normal inferior vena cava. CONCLUSIONS Normal left ventricle systolic function. Normal LVEF 65%. Normal right ventricular size and systolic function. Mild mitral regurgitation. No other significant valvular abnormality noted. Normal right heart and pulmonary artery systolic pressure. Sheyla Louis MD (Electronically Signed) Final Date: 15 August 2024 13:30 S
[2024-08-15] MEDS: montelukast sodium 10 mg Tablet PO (08:33)
[2024-08-15] MEDS: glimepiride 2 mg Tablet PO (08:33)
[2024-08-15] MEDS: gabapentin 100 mg Capsule PO (08:34)
[2024-08-15] MEDS: aspirin 81 mg EC Tablet PO (08:34)
[2024-08-15] MEDS: isosorbide mononitrate ER 30 mg Tablet PO (08:34)
[2024-08-15] MEDS: atorvastatin 40 mg Tablet 30 MG PO (08:34)
[2024-08-15] MEDS: pantoprazole DR 40 mg Tablet PO (08:34)
[2024-08-15] MEDS: carvedilol 6.25 mg Tablet PO ×2 (08:34→18:13)
[2024-08-15] MEDS: cilostazol 100 mg Tablet PO ×2 (08:34→18:13)
[2024-08-15 08:50] LABS: Basophils # 0.1 10^3/uL (0.0-0.1); Basophils % 0.9 %; Eosinophils # 0.1 10^3/uL (0.0-0.8); Eosinophils % 2.4 %; Hematocrit 35.9 % (36-47); Lymphocytes # 1.2 10^3/uL (0.8-4.8); Lymphocytes % 22.1 %; Mean Corpuscular HGB Conc 31.8 g/dL (30-55); Mean Corpuscular Volume 94.5 fl (85-98); Mean Platelet Volume 9.8 fL (7.4-10.4); Monocytes # 0.4 10^3/uL (0.2-0.9); Monocytes % 7.1 %; Neutrophils # 3.59 10^3/uL (1.8-7.7); Neutrophils % 67.1 %; Nucleated Red Blood Cells % 0 %; Platelet Count 243 10^3/cmm (157-399); Red Cell Distribution Width 13.8 % (12.1-15.1); White Blood Count 5.35 10^3/uL (3.29-11.43)
[2024-08-15 09:00] LABS: Alanine Aminotransferase < 5 U/L (0-33); Albumin Level 2.9 g/dL (3.5-5.2); Alkaline Phosphatase 55 U/L (35-105); Anion Gap 14.4 (5-19); Aspartate Amino Transferase 10 U/L (0-32); Blood Urea Nitrogen 5 mg/dL (8-23); Calcium 7.5 mg/dL (8.5-10.5); Carbon Dioxide 24 mmol/L (22-29); Chloride 100 mmol/L (98-107); Chol HDL Ratio 5.42 mg/dL (0.0-4.40); Cholesterol 141 mg/dL (0-200); Globulin 2.7 g/dL (1.3-4.6); Glomerular Filtration Rate 122.7 mL/min (90-130); Glucose 141 mg/dL (65-115); HDL Cholesterol 26 mg/dL (60-100); LDL Cholesterol Calculated 84 mg/dL (50-129); LDL HDL Ratio 3.23 RATIO (0.00-3.22); Osmolality Calculated 280 mOsm/kg (285-295); Potassium 3.4 mmol/L (3.5-5.1); Sodium 135 mmol/L (136-145); Total Bilirubin 0.4 mg/dL (0.15-1.2); Total Protein 5.6 g/dL (6.6-8.7); Triglycerides 157 mg/dL (0-150)
[2024-08-15 09:04] LABS: Estmated Average Glucose 177; Hemoglobin A1C 7.8 % (4.0-6.0)
[2024-08-15 09:17] LABS: Thyroid Stimulating Hormone 17.15 uIU/mL (0.27-4.20)
[2024-08-15] MEDS: FUROsemide 10 mg/mL SDV 4mL 40 MG IVP (09:17)
[2024-08-15] MEDS: fluoxetine 20 mg Capsule PO (09:20)
--- NOTE | 2024-08-15 10:33 | PC.NURSE ---
Addendum entered by Billie Gusman RN 08/15/24 10:40: Patient denies any symptoms at this time. Will continue to monitor Original Note: Stopped nitro drip due to decreasing BP
[2024-08-15 11:19] LABS: Glucose Point of Care 171 mg/dL (70-110)
[2024-08-15] MEDS: insulin lispro 100 unit/1 mL SUBCUT ×3 (12:08→20:55)
--- NOTE | 2024-08-15 12:34 | PC.NURSE ---
Addendum entered by Billie Gusman RN 08/15/24 12:39: Received telephone orders to stop nitro and to start Hydralazine 10mg PO every 8 hours. Original Note: Patient's BP increasing. Latest is 170/75. Informed Dr Benavides. Restarted Nitro drip.
[2024-08-15] MEDS: hyDRALAzine 10 mg Tablet PO ×2 (12:52→20:53)
[2024-08-15 13:06] LABS: Partial Thromboplastin Time 62.5 SECONDS (23.9-36.7)
--- NOTE | 2024-08-15 13:42 | P.PN_ITS ---
Subjective 2 Subjective: Patient was seen this morning, she is alert to person, to place, she follows commands, she is receiving a breathing treatment through her trach collar, denies any chest pain, no shortness of breath, does have 1+ pitting edema Vitals/I&O/Wt Last Vital Signs Temp 98.3 F 08/15/24 11:15 Pulse 74 08/15/24 12:32 Resp 25 H 08/15/24 12:32 BP 170/75 08/15/24 12:32 Pulse Ox 94 08/15/24 12:32 O2 Del Method CAG, Trach Collar 08/15/24 08:51 O2 Flow Rate 12 08/15/24 08:39 FiO2 35 08/15/24 08:51 08/14/24 08/15/24 08/15/24 22:59 06:59 14:59 Intake Total 196.383 / 196.383 17.95 / 17.95 Balance 196.383 / 196.383 17.95 / 17.95 Weight last 48 hrs Weight 88.224 kg Weight 88.224 kg Weight 88.224 kg Weight 88.042 kg Physical Exam 2 Const: COMMON NORMALS: no acute distress and patient oriented x3 Resp: COMMON NORMALS: normal respiratory effort, No retractions and No use of accessory muscles AUSCULTATION: crackles Cardio: COMMON NORMALS: regular rate, regular rhythm, S1 normal heart sound present and S2 normal heart sound present RATE: regular rate RHYTHM: r egular rhythm HEART SOUNDS: S1 normal heart sound present and S2 normal heart sound present GI: COMMON NORMALS: Normal to inspection, nondistended, normoactive bowel sounds present and non-tender Neuro: COMMON NORMALS: patient oriented x3 Psych: COMMON NORMALS: mental status grossly normal Data 08/15/24 01:12 08/15/24 05:10 A&P Assessment and plan (1) Chest pain: - Currently no active chest pain -Continue aspirin, statin, Coreg -Serial EKGs, serial troponins, telemetry monitoring -Cardiac echo CONCLUSIONS Normal left ventricle systolic function. Normal LVEF 65%. Normal right ventricular size and systolic function. Mild mitral regurgitation. No other significant valvular abnormality noted. Normal right heart and pulmonary artery systolic pressure. -Continue heparin drip -Plan on cardiac stress test on Saturday (2) CAD (coronary artery disease): Last stent 7 years ago and patient with extensive vascular disease and a positive family history Will order high-sensitivity C-reactive protein and lipoprotein a (3) PAD (peripheral artery disease): Stable (4) HTN (hypertension): - Has hypertensive urgency -Will wean off nitroglycerin drip -Start hydralazine 10 3 times daily (5) CHF exacerbation: - Systolic diastolic CHF exacerbation -1+ pitting edema -BMP, chest x-ray -1 dose IV Lasix 40 mg IV -Will consider evening dose based on clinical progress (6) Diabetes mellitus: (7) Hypertensive urgency: Attestations 2 Medical Necessity Statement*: Patient requires hospitalization for chest pain, CHF exacerbation Diagnoses Chest pain R07.9 CAD (coronary artery disease) I25.10 PAD (peripheral artery disease) I73.9 HTN (hypertension) I10 CHF exacerbation I50.9 Diabetes mellitus E11.9 Hypertensive urgency I16.0
--- NOTE | 2024-08-15 13:47 | XRR_ITS ---
PROCEDURE INFORMATION: Exam: XR Chest Exam date and time: 08/15/2024 2:19 PM Age: 69 years old Clinical indication: Shortness of breath; Additional info: SOB TECHNIQUE: Imaging protocol: Radiologic exam of the chest. Views: 1 view. COMPARISON: CR XR chest 2V* [id number] 06/08/2022 3:49 PM FINDINGS: Tubes, catheters and devices: Surgical clips overlie the thoracic inlet region. Lungs: Mild bilateral perihilar and basilar interstitial lung opacities, suggesting pulmonary edema versus infiltrates. The peripheral lungs are otherwise clear. No consolidation. Pleural spaces: No pleural effusion. No pneumothorax. Heart/Mediastinum: Coronary arterial stent identified. Cardiac silhouette appears mildly enlarged. Vasculature: Moderate atherosclerotic calcification demonstrated within the aorta. Bones/joints: Diffusely decreased bone density. Generalized bony degenerative changes. Soft tissues: This study is limited by patient's body habitus. XR/XR chest 1V portable [id number] IMPRESSION: 1. Mild enlarged cardiac silhouette. 2. Mild interstitial pulmonary edema versus infiltrates. 3. Degenerative and postsurgical changes are demonstrated, as described above.
[2024-08-15 14:24] LABS: NT Pro B Type Natriuretic Pept 448 pg/mL (0-125)
[2024-08-15 17:12] LABS: Glucose Point of Care 147 mg/dL (70-110)
[2024-08-15 19:44] LABS: Partial Thromboplastin Time 65.6 SECONDS (23.9-36.7)
[2024-08-15 20:32] LABS: Glucose Point of Care 175 mg/dL (70-110)
[2024-08-15] MEDS: heparin drip 25,000 UNIT/500 ML PREMIX 23 UNIT IV (20:57)
[2024-08-16] VITALS (13 sets, daily range): BP systolic 108–151; BP diastolic 56–67; PULSE 71–84; RESP 16–22; TEMP 36.5–36.9; O2SAT 90–96
[2024-08-16 00:51] LABS: Basophils % 0.7 %; Eosinophils # 0.2 10^3/uL (0.0-0.8); Eosinophils % 3.5 %; Hematocrit 32.8 % (36-47); Lymphocytes % 20.8 %; Mean Corpuscular HGB Conc 32.6 g/dL (30-55); Mean Corpuscular Hemoglobin 30.2 pg (27-33); Mean Corpuscular Volume 92.7 fl (85-98); Mean Platelet Volume 9.2 fL (7.4-10.4); Monocytes # 0.4 10^3/uL (0.2-0.9); Monocytes % 8.3 %; Neutrophils # 3.02 10^3/uL (1.8-7.7); Neutrophils % 66.3 %; Nucleated Red Blood Cells % 0 %; Platelet Count 202 10^3/cmm (157-399); Red Blood Count 3.54 10^6/uL (3.85-5.65); Red Cell Distribution Width 13.6 % (12.1-15.1); White Blood Count 4.56 10^3/uL (3.29-11.43)
[2024-08-16 01:07] LABS: Alanine Aminotransferase < 5 U/L (0-33); Albumin Level 3.2 g/dL (3.5-5.2); Alkaline Phosphatase 56 U/L (35-105); Anion Gap 14.5 (5-19); Aspartate Amino Transferase 10 U/L (0-32); Blood Urea Nitrogen 7 mg/dL (8-23); Calcium 7.9 mg/dL (8.5-10.5); Carbon Dioxide 27 mmol/L (22-29); Chloride 106 mmol/L (98-107); Globulin 2.2 g/dL (1.3-4.6); Glomerular Filtration Rate 83.2 mL/min (90-130); Glucose 133 mg/dL (65-115); Osmolality Calculated 298 mOsm/kg (285-295); Potassium 3.5 mmol/L (3.5-5.1); Sodium 144 mmol/L (136-145); Total Bilirubin 0.3 mg/dL (0.15-1.2); Total Protein 5.4 g/dL (6.6-8.7)
[2024-08-16 01:14] LABS: Partial Thromboplastin Time 71.4 SECONDS (23.9-36.7)
[2024-08-16 01:22] LABS: NT Pro B Type Natriuretic Pept 358 pg/mL (0-125)
[2024-08-16] MEDS: hyDRALAzine 10 mg Tablet PO ×3 (06:02→20:46)
[2024-08-16] MEDS: levothyroxine 112 mcg Tablet PO (06:02)
[2024-08-16 06:25] LABS: Glucose Point of Care 132 mg/dL (70-110)
[2024-08-16 07:18] LABS: Partial Thromboplastin Time 64.2 SECONDS (23.9-36.7)
[2024-08-16] MEDS: isosorbide mononitrate ER 30 mg Tablet PO (08:43)
[2024-08-16] MEDS: fluoxetine 20 mg Capsule PO (08:43)
[2024-08-16] MEDS: gabapentin 100 mg Capsule PO (08:43)
[2024-08-16] MEDS: aspirin 81 mg EC Tablet PO (08:43)
[2024-08-16] MEDS: losartan 50 mg Tablet PO (08:44)
[2024-08-16] MEDS: atorvastatin 40 mg Tablet 30 MG PO (08:44)
[2024-08-16] MEDS: montelukast sodium 10 mg Tablet PO (08:44)
[2024-08-16] MEDS: carvedilol 6.25 mg Tablet PO ×2 (08:44→18:03)
[2024-08-16] MEDS: pantoprazole DR 40 mg Tablet PO (08:44)
[2024-08-16] MEDS: cilostazol 100 mg Tablet PO ×2 (08:44→18:02)
--- NOTE | 2024-08-16 10:35 | ECG_ITS ---
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
[2024-08-16] MEDS: FUROsemide 10 mg/mL SDV 2mL 20 MG IVP (10:56)
[2024-08-16] MEDS: potassium chloride ER 20 mEq Tablet 40 MEQ PO (10:56)
[2024-08-16 11:53] LABS: Glucose Point of Care 201 mg/dL (70-110)
[2024-08-16] MEDS: insulin lispro 100 unit/1 mL SUBCUT ×2 (12:12→20:46)
[2024-08-16 12:45] LABS: Partial Thromboplastin Time 51.6 SECONDS (23.9-36.7)
--- NOTE | 2024-08-16 13:48 | P.PN_ITS ---
Subjective 2 Subjective: Patient was seen this morning, sitting up beside the bed, no chest pain overnight, does report feeling a bit short of breath, no significant fevers, denies any chills, Vitals/I&O/Wt Last Vital Signs Temp 98.2 F 08/16/24 11:16 Pulse 76 08/16/24 11:16 Resp 20 H 08/16/24 11:16 BP 136/67 08/16/24 11:16 Pulse Ox 96 08/16/24 11:16 O2 Del Method Trach Collar 08/16/24 11:16 O2 Flow Rate 10 08/15/24 21:00 FiO2 35 08/16/24 09:01 08/15/24 08/16/24 08/16/24 23:59 06:59 14:59 Intake Total 600 / 600 Output Total Balance 600 / 600 Weight last 48 hrs Weight 87.362 kg Weight 87.362 kg Weight 88.224 kg Weight 88.224 kg Weight 88.224 kg Weight 88.042 kg Physical Exam 2 Const: COMMON NORMALS: no acute distress and patient oriented x3 Neck/C-Spine: OTHER: Tracheostomy site, looks clean and dry, Resp: COMMON NORMALS: normal respiratory effort, No retractions, No use of accessory muscles and clear to auscultation bilaterally AUSCULTATION: clear to auscultation bilaterally Cardio: COMMON NORMALS: regular rate, regular rhythm, S1 normal heart sound present and S2 normal heart sound present RATE: regular rate RHYTHM: r egular rhythm HEART SOUNDS: S1 normal heart sound present and S2 normal heart sound present GI: COMMON NORMALS: Normal to inspection, nondistended, normoactive bowel sounds present and non-tender Extremity: NARRATIVE EXTREMITY EXAM: Nonpitting edema Neuro: COMMON NORMALS: patient oriented x3 Psych: COMMON NORMALS: mental status grossly normal Data 08/16/24 00:31 08/16/24 00:31 A&P Assessment and plan (1) Chest pain: - Currently no active chest pain -Continue aspirin, statin, Coreg -Serial EKGs, serial troponins, telemetry monitoring -Cardiac echo CONCLUSIONS Normal left ventricle systolic function. Normal LVEF 65%. Normal right ventricular size and systolic function. Mild mitral regurgitation. No other significant valvular abnormality noted. Normal right heart and pulmonary artery systolic pressure. -Continue heparin drip -Plan on cardiac stress test tomorrow, n.p.o. midnight (2) CAD (coronary artery disease): Last stent 7 years ago and patient with extensive vascular disease and a positive family history Will order high-sensitivity C-reactive protein and lipoprotein a (3) PAD (peripheral artery disease): Stable (4) HTN (hypertension): - Has hypertensive urgency -Will wean off nitroglycerin drip -Start hydralazine 10 3 times daily (5) CHF exacerbation: - Systolic diastolic CHF exacerbation - nonpitting edema -Chest x-ray shows mild interstitial pulm edema versus infiltrates -1 dose IV Lasix 20 mg IV -Will consider evening dose based on clinical progress (6) Diabetes mellitus: Low-dose sliding scale (7) Hypertensive urgency: (8) Tracheostomy in place: - Tracheostomy in place -Does complain of mucus production from tracheostomy but not on more than usual ? Chest x-ray showing mild interstitial pulm edema versus infiltrates ? CRP, Pro-Ezequiel (9) Throat cancer: (10) Elevated TSH: Check T3, T4 Plan Spoke to patient, spoke to nursing staff Attestations 2 Medical Necessity Statement*: Patient requires hospitalization, for chest pain, elevated TSH, chest x-ray showing infiltrates, CHF, T3, T4, IV diuresis, and puberty, for cardiac cirrhosis tomorrow morning Diagnoses Chest pain R07.9 CAD (coronary artery disease) I25.10 PAD (peripheral artery disease) I73.9 HTN (hypertension) I10 CHF exacerbation I50.9 Diabetes mellitus E11.9 Hypertensive urgency I16.[address] Z93.0 Throat cancer C14.0 Elevated TSH R79.89
[2024-08-16 14:40] LABS: Free T4 Free Thyroxine 0.76 ng/dL (0.82-1.77); Procalcitonin 0.06 ng/mL (0-0.5); T3 Free 1.7 PG/ML (2.0-4.4)
[2024-08-16 14:50] LABS: C Reactive Protein 24.1 mg/L (0.0-4.9)
[2024-08-16 16:52] LABS: Glucose Point of Care 134 mg/dL (70-110)
[2024-08-16] MEDS: heparin drip 25,000 UNIT/500 ML PREMIX 25 UNIT IV (18:03)
[2024-08-16 18:33] LABS: Partial Thromboplastin Time 73.4 SECONDS (23.9-36.7)
[2024-08-16 20:33] LABS: Glucose Point of Care 200 mg/dL (70-110)
[2024-08-17] VITALS (28 sets, daily range): BP systolic 68–171; BP diastolic 48–118; PULSE 68–92; RESP 15–32; TEMP 36.6–37; O2SAT 90–98
[2024-08-17 00:06] LABS: Partial Thromboplastin Time 46.7 SECONDS (23.9-36.7)
[2024-08-17] MEDS: heparin 5,000 unit/mL INJ 1 mL IVP ×2 (00:27→21:46)
[2024-08-17] MEDS: levothyroxine 112 mcg Tablet PO (05:34)
[2024-08-17] MEDS: hyDRALAzine 10 mg Tablet PO ×2 (05:34→12:34)
[2024-08-17 06:32] LABS: Glucose Point of Care 188 mg/dL (70-110)
[2024-08-17 07:11] LABS: Basophils % 0.6 %; Eosinophils # 0.2 10^3/uL (0.0-0.8); Eosinophils % 3.7 %; Hematocrit 32.6 % (36-47); Lymphocytes % 19.9 %; Mean Corpuscular HGB Conc 32.2 g/dL (30-55); Mean Corpuscular Hemoglobin 29.9 pg (27-33); Mean Corpuscular Volume 92.9 fl (85-98); Mean Platelet Volume 9.2 fL (7.4-10.4); Monocytes # 0.4 10^3/uL (0.2-0.9); Monocytes % 7.8 %; Neutrophils # 3.29 10^3/uL (1.8-7.7); Neutrophils % 67.4 %; Nucleated Red Blood Cells % 0 %; Platelet Count 210 10^3/cmm (157-399); Red Blood Count 3.51 10^6/uL (3.85-5.65); Red Cell Distribution Width 13.8 % (12.1-15.1); White Blood Count 4.88 10^3/uL (3.29-11.43)
[2024-08-17 07:32] LABS: Alanine Aminotransferase 7 U/L (0-33); Albumin Level 3.1 g/dL (3.5-5.2); Alkaline Phosphatase 51 U/L (35-105); Anion Gap 12.8 (5-19); Aspartate Amino Transferase 18 U/L (0-32); Blood Urea Nitrogen 7 mg/dL (8-23); Calcium 7.9 mg/dL (8.5-10.5); Carbon Dioxide 26 mmol/L (22-29); Chloride 101 mmol/L (98-107); Creatinine Clr Calc Pharmacy 92.9666; Globulin 2.5 g/dL (1.3-4.6); Glomerular Filtration Rate 99.4 mL/min (90-130); Glucose 132 mg/dL (65-115); Osmolality Calculated 282 mOsm/kg (285-295); Potassium 3.8 mmol/L (3.5-5.1); Sodium 136 mmol/L (136-145); Total Bilirubin 0.3 mg/dL (0.15-1.2); Total Protein 5.6 g/dL (6.6-8.7)
[2024-08-17 07:36] LABS: Partial Thromboplastin Time 80.5 SECONDS (23.9-36.7)
[2024-08-17 07:40] LABS: NT Pro B Type Natriuretic Pept 90 pg/mL (0-125)
[2024-08-17] MEDS: regadenoson 0.4 Mg/5 ml Syringe IVP (09:25)
--- NOTE | 2024-08-17 09:48 | PC.CHAP ---
Pastoral Care Encounter/Spiritual Assessment Type of Contact [] Declined cabinet installer visit [] Patient/Family/Request visit [] Outpatient visit [] Follow-up visit [] Physician referral [] Code/Alert [x] Routine visit [] Staff referral [] Actively dying [x] Patient sleeping [] Family support [] [] Out of room [] Palliative care [] [] Receiving care in room [] Pre-surgical visit [] Trauma [] Long length of stay [] ICU visit [] Other: Relational/Emotional Strength [] Patient feels connected with others/family/visitors/staff [] Distress [] Loneliness/isolation [] Abandonment Spirituality of Patient [] Person of Afia [] Attends Faith of their Afia [] Believes in Prayer [] Reads Bible or Yazidism materials [] There are Spiritual issues to be addressed Manager Lighting Interventions [x] Prayer [] Active listening [] Non-anxious presence [] Spiritual/emotional support [] Crisis/trauma care [] Spiritual counseling [] Bereavement support [] Provided bereavement packet [] Provided Bible/devotional materials [] Provided toy/stuffed animal, coloring book to patient or family member [] Provided Communion [] Anointing/[place] [] Salvation [] Completed spiritual assessment [] Other: Impact on Illness or Injury [] Angry [] Fearful [] Anxious [] Often cries [] Exhaustion [] Unable to work [] Unable to attend christianity [] Unable to walk/stand [] Unable to read [] Unable to drive [] Unable to eat/drink [] Unable to sleep [] Unable to be with family [] Patient intubated [] Other: Summary Time spent with patient
--- NOTE | 2024-08-17 10:35 | NMCV_ITS ---
NM tatiana perf SPECT r/s* [id number] Yokasta Shields Age: 69 Gender: F : 1955 Exam Date: 08/17/2024 10:35 Ordering Phys: Gurpreet Benavides MD Technologist: STEVE Lawson Exam Location: [facility] Indications: cp STRESS TEST Please see separate stress test report in [facility] for full findings IMAGE PROTOCOL Rest/Stress 1 Lexiscan Day Radiopharmaceutical Dose (mCi) Administration Site Administered by Rest: Tc-99m 9.6 IV Mary Pennington SENIOR MICROS[employer]FT CONSULTANT Stress:Tc-99m 29.1 IV Mary Pennington, SENIOR MICROSOFT CONSULTANT Rest: 08/17/2024 60 Discovery 630 Stress: 08/17/2024 30 Discovery 630 0.4mg Lexiscan. Supine position only as patient was unable to lay prone. SPECT RESULTS Technical Quality: Good Raw Data Analysis: Normal Image Corrections: No attenuation or motion correction applied Summed Stress Score: 1 Summed Rest Score: 0 Summed Difference Score: 1 PERFUSION FINDINGS Medium sized area of fixed perfusion defect noted in mid inferior wall which showed medium to large area of moderate reversibility suggestive of old myocardial infarction surrounded by swetha-infarct ischemia. FUNCTIONAL RESULTS (calculated via Gated SPECT) Stress Image LV EF (%): 78 Stress EDV (mL):55 TID: 0.79 Stress ESV (mL):12 FUNCTIONAL FINDINGS: There is normal left ventricular systolic function. IMPRESSIONS Medium sized area of old myocardial infarction in the mid inferior wall surrounded by moderate to large area of medium to large area of moderate swetha- infarct ischemia. This is abnormal stress test. EKG segment will be documented separately. Raúl Spicer MD (Electronically Signed) Final Date: 17 August 2024 15:08 S
[2024-08-17] MEDS: atorvastatin 40 mg Tablet 30 MG PO (10:55)
[2024-08-17] MEDS: pantoprazole DR 40 mg Tablet PO (10:55)
[2024-08-17] MEDS: carvedilol 6.25 mg Tablet PO (10:56)
[2024-08-17] MEDS: isosorbide mononitrate ER 30 mg Tablet PO (10:56)
[2024-08-17] MEDS: losartan 50 mg Tablet PO (10:57)
[2024-08-17] MEDS: aspirin 81 mg EC Tablet PO (10:57)
[2024-08-17] MEDS: gabapentin 100 mg Capsule PO (11:00)
[2024-08-17] MEDS: fluoxetine 20 mg Capsule PO (11:01)
[2024-08-17] MEDS: montelukast sodium 10 mg Tablet PO (11:02)
[2024-08-17] MEDS: cilostazol 100 mg Tablet PO ×2 (11:02→16:58)
[2024-08-17] MEDS: nitroglycerin 0.4 mg sublingual Tablet SUBLINGUAL (11:15)
[2024-08-17 11:51] LABS: Glucose Point of Care 151 mg/dL (70-110)
[2024-08-17] MEDS: insulin lispro 100 unit/1 mL SUBCUT ×3 (12:34→21:46)
[2024-08-17 13:47] LABS: Glucose Point of Care 196 mg/dL (70-110)
[2024-08-17 13:52] LABS: Partial Thromboplastin Time 47.8 SECONDS (23.9-36.7)
--- NOTE | 2024-08-17 14:00 | ECG_ITS ---
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
[2024-08-17] MEDS: acetaminophen 325 mg Tablet 650 MG PO (14:02)
[2024-08-17] MEDS: sodium chloride 0.9% 250 ML IV (14:26)
--- NOTE | 2024-08-17 14:55 | PC.NURSE ---
Tylenol given for headache.
--- NOTE | 2024-08-17 14:55 | PC.NURSE ---
Nitro pill given sublingually at 1115 for patient complaint of chest pain. Just one tablet given, patient communicated pain was better after nitro.
[2024-08-17] MEDS: heparin drip 25,000 UNIT/500 ML PREMIX 26 UNIT IV (15:01)
[2024-08-17 15:19] LABS: Troponin T (5th) Once 7 ng/L (0-10)
[2024-08-17 15:21] LABS: Anion Gap 13.7 (5-19); Blood Urea Nitrogen 7 mg/dL (8-23); Calcium 7.7 mg/dL (8.5-10.5); Carbon Dioxide 24 mmol/L (22-29); Chloride 99 mmol/L (98-107); Creatinine Clr Calc Pharmacy 92.9666; Glomerular Filtration Rate 99.4 mL/min (90-130); Glucose 160 mg/dL (65-115); Osmolality Calculated 277 mOsm/kg (285-295); Potassium 3.7 mmol/L (3.5-5.1); Sodium 133 mmol/L (136-145)
--- NOTE | 2024-08-17 15:27 | PC.NURSE ---
Two 250ml boluses have been given to patient. Dr. Benavides notified of results.
[2024-08-17] MEDS: aspirin 325 mg Tablet PO (15:56)
--- NOTE | 2024-08-17 16:32 | P.PN_ITS ---
Subjective 2 Subjective: - Patient was examined this morning, she is alert oriented x 3, following all commands, had no complaints overnight, no chest pain complaints overnight, no fevers, no chills, no cough, plan on stress testing today -Patient had stress test -At 11 AM, she reported chest pain recei jesus nitroglycerin by nursing staff -Patient was reexamined at about 2 PM, b lood pressures are soft, 90s over 40s, complaining of chest pain ? EKG obtained, no acute ST-T wave changes ? Advised nursing staff to give her a 250 mL bolus ? Patient was seen, MAP is around 65, currently she is chest pain-free, discussed we will continue to monitor her closely, repeated CBC, CMP, lactic acid, troponin series ? After 250 mL bolus, blood pressures still remain a bit soft 90s over 40s she is chest pain-free, will give another 250 mL bolus # Patient was reexamined she again is seen she is resting comfortably, sleeping blood pressures 90s over 40s, MAP is at 65, will give her 200 mL of albumin, she is chest pain-free, no shortness of breath does feel a bit lightheaded ? Spoke to cardiology, stress test was positive, plan on cardiac catheterization tomorrow ? Patient was reexamined discussed with her her positive stress test, cardiology consultation, she is agreeable as her blood pressures remain soft, although currently she is asymptomatic, her head does not feel lightheaded anymore, no chest pain, shortness of breath blood pressures remain a bit soft, will moved to ICU, recheck troponin series, Vitals/I&O/Wt Last Vital Signs Temp 98.6 F 08/17/24 11:17 Pulse 76 08/17/24 11:17 Resp 23 H 08/17/24 11:17 BP 148/79 08/17/24 11:17 Pulse Ox 98 08/17/24 11:17 O2 Del Method Trach Collar 08/17/24 11:17 O2 Flow Rate 10 08/15/24 21:00 FiO2 30 08/17/24 07:55 08/17/24 08/17/24 08/17/24 06:59 14:59 22:59 Intake Total 142.083 / 1369.983 579.167 / 579.167 250 / 829.167 Balance 142.083 / 1369.983 579.167 / 579.167 250 / 829.167 Weight last 48 hrs Weight 87.498 kg Weight 87.498 kg Weight 87.362 kg Weight 87.362 kg Physical Exam 2 Const: COMMON NORMALS: no acute distress and patient oriented x3 Resp: COMMON NORMALS: normal respiratory effort, No retractions, No use of accessory muscles and clear to auscultation bilaterally AUSCULTATION: clear to auscultation bilaterally Cardio: COMMON NORMALS: regular rate, regular rhythm, S1 normal heart sound present and S2 normal heart sound present RATE: regular rate RHYTHM: r egular rhythm HEART SOUNDS: S1 normal heart sound present and S2 normal heart sound present GI: COMMON NORMALS: Normal to inspection, nondistended, normoactive bowel sounds present and non-tender Extremity: COMMON NORMALS: no pedal edema Neuro: COMMON NORMALS: patient oriented x3 Psych: COMMON NORMALS: mental status grossly normal Data 08/17/24 06:44 08/17/24 14:13 A&P Assessment and plan (1) Chest pain: - active chest pain at 11pm -Continue aspirin, statin, Coreg -Serial EKGs, serial troponins, telemetry monitoring -Cardiac echo CONCLUSIONS Normal left ventricle systolic function. Normal LVEF 65%. Normal right ventricular size and systolic function. Mild mitral regurgitation. No other significant valvular abnormality noted. Normal right heart and pulmonary artery systolic pressure. -Continue heparin drip -Plan on cath, n.p.o. midnight (2) CAD (coronary artery disease): Last stent 7 years ago and patient with extensive vascular disease and a positive family history Will order high-sensitivity C-reactive protein and lipoprotein a (3) PAD (peripheral artery disease): Stable (4) HTN (hypertension): (5) CHF exacerbation: - Systolic diastolic CHF exacerbation - nonpitting edema -Chest x-ray shows mild interstitial pulm edema versus infiltrates -1 dose IV Lasix 20 mg IV -Will consider evening dose based on clinical progress (6) Diabetes mellitus: Low-dose sliding scale (7) Hypertensive urgency: (8) Tracheostomy in place: - Tracheostomy in place -Does complain of mucus production from tracheostomy but not on more than usual ? Chest x-ray showing mild interstitial pulm edema versus infiltrates ? CRP, Pro-Ezequiel (9) Throat cancer: (10) Elevated TSH: Check T3, T4 Plan Spoke to patient, spoke to nursing staff - Patient was examined this morning, she is alert oriented x 3, following all commands, had no complaints overnight, no chest pain complaints overnight, no fevers, no chills, no cough, plan on stress testing today -Patient had stress test -At 11 AM, she reported chest pain received nitroglycerin by nursing staff -Patient was reexamined at about 2 PM, blood pressures are soft, 90s over 40s, complaining of chest pain ? EKG obtained, no acute ST-T wave changes ? Advised nursing staff to give her a 250 mL bolus ? Patient was seen, MAP is around 65, currently she is chest pain-free, discussed we will continue to monitor her closely, repeated CBC, CMP, lactic acid, troponin series ? After 250 mL bolus, blood pressures still remain a bit soft 90s over 40s she is chest pain-free, will give another 250 mL bolus # Patient was reexamined she again is seen she is resting comfortably, sleeping blood pressures 90s over 40s, MAP is at 65, will give her 200 mL of albumin, she is chest pain-free, no shortness of breath does feel a bit lightheaded ? Spoke to cardiology, stress test was positive, plan on cardiac catheterization tomorrow ? Patient was reexamined discussed with her her positive stress test, cardiology consultation, she is agreeable as her blood pressures remain soft, although currently she is asymptomatic, her head does not feel lightheaded anymore, no chest pain, shortness of breath blood pressures remain a bit soft, will moved to ICU, recheck troponin series, -Spoke to cardiology, will consult -Spoke to nurse Spoke to patient multiple times Attestations 2 Medical Necessity Statement*: Patient requires hospitalization due to low blood pressure, persistent chest pain, positive stress test Diagnoses Chest pain R07.9 CAD (coronary artery disease) I25.10 PAD (peripheral artery disease) I73.9 HTN (hypertension) I10 CHF exacerbation I50.9 Diabetes mellitus E11.9 Hypertensive urgency I16.[address] Z93.0 Throat cancer C14.0 Elevated TSH R79.89
[2024-08-17] MEDS: albumin 50 G/200 ML BAG 60 G IV (16:36)
--- NOTE | 2024-08-17 16:47 | PC.NURSE ---
Report called to Vaibhav Lei RN in ICU at 1645. This typewriter mechanic will give 1800 meds and bring her to ICU 8.
[2024-08-17 17:05] LABS: Basophils % 0.6 %; Eosinophils # 0.2 10^3/uL (0.0-0.8); Eosinophils % 2.9 %; Hematocrit 33.2 % (36-47); Lymphocytes # 0.8 10^3/uL (0.8-4.8); Lymphocytes % 15.7 %; Mean Corpuscular HGB Conc 32.5 g/dL (30-55); Mean Corpuscular Hemoglobin 30.9 pg (27-33); Mean Corpuscular Volume 95.1 fl (85-98); Mean Platelet Volume 9.3 fL (7.4-10.4); Monocytes # 0.3 10^3/uL (0.2-0.9); Monocytes % 6.4 %; Neutrophils # 3.79 10^3/uL (1.8-7.7); Neutrophils % 73.4 %; Nucleated Red Blood Cells % 0 %; Platelet Count 207 10^3/cmm (157-399); Red Blood Count 3.49 10^6/uL (3.85-5.65); White Blood Count 5.16 10^3/uL (3.29-11.43)
[2024-08-17 17:21] LABS: Glucose Point of Care 143 mg/dL (70-110)
[2024-08-17 17:32] LABS: Lactate (Lactic Acid level) 0.8 mmol/L (0.5-2.2)
[2024-08-17 17:39] LABS: Troponin 5 2HR Delta -1 ABS# (0-10)
[2024-08-17] MEDS: norepinephrine 4 MG/250 ML BAG 7.5 MG IV (18:01)
--- NOTE | 2024-08-17 18:10 | ECG_ITS ---
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
[2024-08-17 19:29] LABS: Partial Thromboplastin Time 53.5 SECONDS (23.9-36.7)
--- NOTE | 2024-08-17 20:56 | P.CONIM_ITS ---
Documented by User: Aruna Carranza NP 08/17/24 21:47 Providers/Reason For Consult 2 Consulting Physician/Specialty*: Raúl Spicer MD Reason for Consult*: Chest pain Requesting Physician: Dr. Benavides Attending Physician: Gurpreet Benavides MD Primary Care Provider: Breanne Clayton History of Present Illness History of Present Illness Yokasta Shields is a very pleasant 69 year old female with history of tobacco use stopped 8 years ago when she had ENT surgery for cancer and ended up with a trach. Past medical history includes asthma, cervical cancer 2001 coronary artery disease, depression, diabetes, COPD, GERD, 4 cardiac stents, hypertension, hyperlipidemia, hypothyroidism, peripheral artery disease, head and neck cancer, carotid stenosis. She states that for the past several weeks, she has been having chest pain in the center of her chest relieved by rest. She has not seen a client services director in over a year. She was seen today at the [facility] and was transferred here for chest pain to rule out ND and unstable antinga. Blood pressure was elevated on admission initially at 208/101. Patient was placed on a nitro drip. She then became hypotensive and bp medications were held. She had one episode of chest pain this stay which was relieved with sublingual nitro. Currently no chest pain or shortness of breath. Blood pressure has been labile. EKG showed nonspecific T wave abnormality. Troponins are negative. Review of Systems 2 Narrative: Consitutional: denies fever, chills, body aches, or changes in appetite, denies abnormal weight loss Eyes: Denies changes in vision Cardiology: Reports recent chest pain on exertion, has been going on for several weeks relieved with nitro, denies edema, syncope, shortness of breath, orthopnea, leg pain with exertion Respiratory: denies hemoptysis, denies shortness of breath Neurological: Denies s/s of stroke Medications/Allergies Home Medications Medication Instructions Recorded Confirmed Last Taken Type albuterol sulfate 90 mcg/actuation 2 puff inhalation Q6H PRN Dyspnea 11/21/21 08/15/24 Unknown History aerosol inhaler carvedilol 6.25 mg tablet 6.25 mg PO BID 11/21/21 08/15/24 Unknown History dexlansoprazole 60 mg 60 mg PO DAILY 11/21/21 08/15/24 Unknown History capsule,biphase delayed release (Dexilant) diclofenac sodium 1 % topical gel 2 g topical QID 11/21/21 08/15/24 Unknown History (Arthritis Pain (diclofenac)) fluoxetine 20 mg/5 mL (4 mg/mL) 20 mg PO DAILY 11/21/21 08/15/24 Unknown History oral solution glimepiride 2 mg tablet 2 mg PO DAILY 11/21/21 08/15/24 Unknown History levothyroxine 112 mcg capsule 175 mcg PO DAILY 11/21/21 08/15/24 Unknown History meloxicam 15 mg tablet 15 mg PO DAILY 11/21/21 08/15/24 Unknown History montelukast 10 mg tablet 10 mg PO BEDTIME 11/21/21 08/15/24 Unknown History cilostazol 100 mg tablet 100 mg PO BID #180 tabs 05/09/23 08/15/24 Unknown Rx nitroglycerin 0.4 mg sublingual 0.4 mg sublingual Q5M PRN chest 06/04/23 08/15/24 Unknown Rx tablet pain #25 tabs isosorbide mononitrate 30 mg 30 mg PO DAILY #90 tabs 09/03/23 08/15/24 Unknown Rx tablet,extended release 24 hr aspirin 81 mg tablet,delayed 81 mg PO DAILY 08/15/24 08/15/24 Unknown History release atorvastatin 40 mg tablet 40 mg PO DAILY 08/15/24 08/15/24 Unknown History calcium carbonate 500 mg PO DAILY 08/15/24 08/15/24 Unknown History cholecalciferol (vitamin D3) 1,250 50,000 unit PO Q7D 08/15/24 08/15/24 Unknown History mcg (50,000 unit) capsule dapagliflozin propanediol 10 mg 10 mg PO DAILY 08/15/24 08/15/24 Unknown History tablet exenatide microspheres 2 mg/0.85 2 mg SUBCUT Q7D 08/15/24 08/15/24 Unknown History mL subcutaneous auto-injector (Cem James) glipizide 5 mg tablet, extended 5 mg PO DAILY 08/15/24 08/15/24 Unknown History release 24 hr ipratropium 0.5 mg-albuterol 3 mg 3 ml inhalation Q6H 08/15/24 08/15/24 Unknown History (2.5 mg base)/3 mL nebulization soln lisinopril 5 mg tablet 5 mg PO DAILY 08/15/24 08/15/24 Unknown History losartan 25 mg tablet 25 mg PO DAILY Unobtainable 08/15/24 08/15/24 Unknown History paroxetine HCl 20 mg tablet 20 mg PO DAILY 08/15/24 08/15/24 Unknown History sulfamethoxazole 800 1 tab PO BID 08/15/24 08/15/24 Unknown History mg-trimethoprim 160 mg tablet Allergies Allergy/AdvReac Type Severity Reaction Status Date / Time doxycycline Allergy Unknown unknown Verified 09/03/23 13:52 Current Medications Generic Name Dose Route Start Last Admin Trade Name Freq PRN Reason Stop Dose Admin Acetaminophen 650 mg 08/14/24 23:03 08/17/24 14:02 Acetaminophen 325 Mg Tablet PO 650 mg Q6H PRN Administration Mild/Mod Pain Or Temp >/= 101 Albuterol Sulfate 2.5 mg 08/14/24 23:51 08/15/24 21:00 Albuterol 2.5 Mg/3 Ml Neb INHALATION 2.5 mg Q4H PRN Administration WHEEZING Aspirin 81 mg 08/15/24 09:00 08/17/24 10:57 Aspirin 81 Mg Ec Tablet PO 81 mg DAILY DEREJE Administration Atorvastatin Calcium 30 mg 08/15/24 09:00 08/17/24 10:55 Atorvastatin 40 Mg Tablet PO 30 mg DAILY DEREJE Administration Cilostazol 100 mg 08/15/24 09:00 08/17/24 16:58 Cilostazol 100 Mg Tablet PO 100 mg BID DEREJE Administration Fluoxetine HCl 20 mg 08/15/24 09:15 08/17/24 11:01 Fluoxetine 20 Mg Capsule PO 20 mg DAILY DEREJE Administration Gabapentin 100 mg 08/15/24 09:00 08/17/24 11:00 Gabapentin 100 Mg Capsule PO 100 mg DAILY DEREJE Administration Heparin Sodium (Porcine) 0 unit 08/14/24 22:36 08/17/24 00:27 Heparin 5,000 Unit/Ml Inj 1 Ml IVP 1,800 unit PRN PRN Administration Heparin Weight Based Protocol -Subsequent Bolus Protocol Heparin Sodium/Sodium Chloride 25,000 unit in 500 mls @ 0 mls/hr 08/14/24 22:45 08/17/24 15:01 Heparin Drip IV 14.74 unit/kg/hr CONT DEREJE 26 mls/hr Administration Protocol Per Protocol Norepinephrine Bitartrate 4 mg in 250 mls @ 0 mls/hr 08/17/24 15:15 08/17/24 19:35 Levophed IV 0 mcg/min .Q0M DEREJE 0 mls/hr Titration Protocol Per Protocol Insulin Human Lispro 0 unit 08/15/24 12:00 08/17/24 16:58 Insulin Lispro 100 Unit/1 Ml SUBCUT 1 unit WM&BEDTIME DEREJE Administration Protocol Ipratropium [place] 0.5 mg 08/14/24 23:51 08/15/24 00:59 Ipratropium 0.5 Mg/2.5 Ml Neb INHALATION 0.5 mg Q4H PRN Administration WHEEZING Levothyroxine Sodium 112 mcg 08/15/24 07:00 08/17/24 05:34 Levothyroxine 112 Mcg Tablet PO 112 mcg ACBREAKFAST DEREJE Administration Montelukast Sodium 10 mg 08/15/24 09:00 08/17/24 11:02 Montelukast Sodium 10 Mg Tablet PO 10 mg DAILY DEREJE Administration Nitroglycerin 0.4 mg 08/14/24 23:51 08/17/24 11:15 Nitroglycerin 0.4 Mg Sublingual Tablet SUBLINGUAL 0.4 mg Q5M PRN Administration chest pain Pantoprazole Sodium 40 mg 08/15/24 09:00 08/17/24 10:[address] 40 Mg Tablet PO 40 mg DAILY DEREJE Administration PFSH Acute 2 PFSH: Medical History (Updated 08/17/24 @ 21:43 by Aruna Carranza NP) PAD (peripheral artery disease) Diabetes mellitus HTN (hypertension) Throat cancer CAD (coronary artery disease) Hypercholesterolemia Surgical History S/P coronary artery stent placement H/O hernia repair Social History Smoking and tobacco/nicotine status: former use of tobacco/nicotine Vitals/I&O/Wt Last Vital Signs Temp 98.2 F 08/17/24 19:35 Pulse 80 08/17/24 20:10 Resp 18 08/17/24 20:10 BP 68/48 08/17/24 17:45 Pulse Ox 96 08/17/24 20:10 O2 Del Method CAG 08/17/24 20:10 O2 Flow Rate 10 08/15/24 21:00 FiO2 30 08/17/24 20:10 08/17/24 08/17/24 08/17/24 06:59 14:59 22:59 Intake Total 142.083 / 1369.983 579.167 / 579.167 364.250 / 943.417 Balance 142.083 / 1369.983 579.167 / 579.167 364.250 / 943.417 Weight last 48 hrs Weight 192 lb 14.4 oz Weight 192 lb 14.4 oz Weight 192 lb 9.6 oz Weight 192 lb 9.6 oz Physical Exam 2 Narrative: General: No apparent distress, healthy appearing, well nourished HENMT: normoceophalic Eye: PERRL Neck: No carotid bruit bilaterally, hx of trach Muskuloskeletal: Full ROM Lymphatic: no lymphedema noted Respiratory: Normal respiratory effort, clear to auscultation bilaterally throughout all lung [place], no use of accessory muscles Cardio: No JVD, regular rate, regular rhythm, S1 S2 normal, no murmurs, peripheral pulses 2+ throughout Extremities: Full ROM, normal, normal capillary refill, no cyanosis or edema Neuro: Alert and oriented x4, no focal motor deficits Psych: Affect normal, denies suicidal ideation, mental status grossly normal Skin: No rashes or lesions noted, no wounds 13 Data 08/17/24 16:46 08/17/24 14:13 Other data: Myocardial perfusion imaging IMPRESSIONS Medium sized area of old myocardial infarction in the mid inferior wall surrounded by moderate to large area of medium to large area of moderate [place]- infarct ischemia. This is abnormal stress test. EKG segment will be documented separately. Echo Complete Normal left ventricle systolic function. Normal LVEF 65%. Normal right ventricular size and systolic function. Mild mitral regurgitation. No other significant valvular abnormality noted. Normal right heart and pulmonary artery systolic pressure. A&P Assessment and plan (1) Chest pain: Patient has a hx of coronary stenting. Although enzymes are negative, patient has been having s/s consistent with unstable angina as well as positive stress test in the inferior region of the heart with moderate reversibility. At this time, we recommend the patient undergo a left heart cath for coronary angiogram and possible PCI. The risk and benefits were discussed in detail with the patient. The risk of bleeding, hematoma, vascular injury, myocardial infarction, myocardial perforation, malignant cardiac arrhythmias ,CVA, renal failure and other concomitant complications were explained in detail. She fully agreed to proceed. We will plan on taking her tomorrow. Continue heparin drip and nitro sublingual as patient's BP allows. Qualifiers: Chest pain type: other chest pain Qualified Code(s): R07.89 - Other chest pain (2) Hypercholesterolemia: Continue statin therapy (3) CAD (coronary artery disease): Continue statin therapy. Left heart cath tomorrow. Qualifiers: Associated angina: with unstable angina Coronary Disease-Associated Artery/Lesion type: [place] artery [place] vs. transplanted heart: [place] heart Qualified Code(s): I25.110 - Atherosclerotic heart disease of [place] coronary artery with unstable angina pectoris (4) HTN (hypertension): BP is soft and labile at this time, bp medications are being held. Qualifiers: Hypertension type: primary hypertension Qualified Code(s): I10 - Essential (primary) hypertension Plan Left heart cath tomorrow with possible coronary intervention Coding Level of Care Code Acute Code for Chg Fwd Diagnoses Other chest pain R07.89 Chest pain type: other chest pain Hypercholesterolemia E78.00 Coronary artery disease involving [place] coronary artery of [place] heart with unstable angina pectoris I25.110 Associated angina: with unstable angina Coronary Disease-Associated Artery/Lesion type: [place] artery [place] vs. transplanted heart: [place] heart Primary hypertension I10 Hypertension type: primary hypertension Documented by User: Raúl Spicer MD 08/17/24 22:20 Medications/Allergies Home Medications Medication Instructions Recorded Confirmed Last Taken Type albuterol sulfate 90 mcg/actuation 2 puff inhalation Q6H PRN Dyspnea 11/21/21 08/15/24 Unknown History aerosol inhaler carvedilol 6.25 mg tablet 6.25 mg PO BID 11/21/21 08/15/24 Unknown History dexlansoprazole 60 mg 60 mg PO DAILY 11/21/21 08/15/24 Unknown History capsule,biphase delayed release (Dexilant) diclofenac sodium 1 % topical gel 2 g topical QID 11/21/21 08/15/24 Unknown History (Arthritis Pain (diclofenac)) fluoxetine 20 mg/5 mL (4 mg/mL) 20 mg PO DAILY 11/21/21 08/15/24 Unknown History oral solution glimepiride 2 mg tablet 2 mg PO DAILY 11/21/21 08/15/24 Unknown History levothyroxine 112 mcg capsule 175 mcg PO DAILY 11/21/21 08/15/24 Unknown History meloxicam 15 mg tablet 15 mg PO DAILY 11/21/21 08/15/24 Unknown History montelukast 10 mg tablet 10 mg PO BEDTIME 11/21/21 08/15/24 Unknown History cilostazol 100 mg tablet 100 mg PO BID #180 tabs 05/09/23 08/15/24 Unknown Rx nitroglycerin 0.4 mg sublingual 0.4 mg sublingual Q5M PRN chest 06/04/23 08/15/24 Unknown Rx tablet pain #25 tabs isosorbide mononitrate 30 mg 30 mg PO DAILY #90 tabs 09/03/23 08/15/24 Unknown Rx tablet,extended release 24 hr aspirin 81 mg tablet,delayed 81 mg PO DAILY 08/15/24 08/15/24 Unknown History release atorvastatin 40 mg tablet 40 mg PO DAILY 08/15/24 08/15/24 Unknown History calcium carbonate 500 mg PO DAILY 08/15/24 08/15/24 Unknown History cholecalciferol (vitamin D3) 1,250 50,000 unit PO Q7D 08/15/24 08/15/24 Unknown History mcg (50,000 unit) capsule dapagliflozin propanediol 10 mg 10 mg PO DAILY 08/15/24 08/15/24 Unknown History tablet exenatide microspheres 2 mg/0.85 2 mg SUBCUT Q7D 08/15/24 08/15/24 Unknown History mL subcutaneous auto-injector (Cem James) glipizide 5 mg tablet, extended 5 mg PO DAILY 08/15/24 08/15/24 Unknown History release 24 hr ipratropium 0.5 mg-albuterol 3 mg 3 ml inhalation Q6H 08/15/24 08/15/24 Unknown History (2.5 mg base)/3 mL nebulization soln lisinopril 5 mg tablet 5 mg PO DAILY 08/15/24 08/15/24 Unknown History losartan 25 mg tablet 25 mg PO DAILY Unobtainable 08/15/24 08/15/24 Unknown History paroxetine HCl 20 mg tablet 20 mg PO DAILY 08/15/24 08/15/24 Unknown History sulfamethoxazole 800 1 tab PO BID 08/15/24 08/15/24 Unknown History mg-trimethoprim 160 mg tablet Allergies Allergy/AdvReac Type Severity Reaction Status Date / Time doxycycline Allergy Unknown unknown Verified 09/03/23 13:52 PFSH Acute 2 PFSH: Medical History (Updated 08/17/24 @ 21:43 by Aruna Carranza NP) PAD (peripheral artery disease) Diabetes mellitus HTN (hypertension) Throat cancer CAD (coronary artery disease) Hypercholesterolemia Surgical History S/P coronary artery stent placement H/O hernia repair Social History Smoking and tobacco/nicotine status: former use of tobacco/nicotine Data 08/17/24 16:46 08/17/24 14:13 A&P Assessment and plan (1) Chest pain: Qualifiers: Chest pain type: other chest pain Qualified Code(s): R07.89 - Other chest pain (2) Hypercholesterolemia: (3) CAD (coronary artery disease): Qualifiers: Associated angina: with unstable angina Coronary Disease-Associated Artery/Lesion type: [place] artery [place] vs. transplanted heart: [place] heart Qualified Code(s): I25.110 - Atherosclerotic heart disease of [place] coronary artery with unstable angina pectoris (4) HTN (hypertension): Qualifiers: Hypertension type: primary hypertension Qualified Code(s): I10 - Essential (primary) hypertension Consult Attestations 2 Other Attestations: Other Attestations: Patient was evaluated and cared for in conjunction with an advanced practice practitioner. I personally examined the patient and reviewed the chart and all pertinent data including imaging, telemetry, and laboratory results. I discussed the patient in detail with the advanced practice practitioner. Please see their note for complete H&P testing result and agreed upon plan of care for the patient. 69-year-old female presented with hypert ensive urgency chest pain underwent stress test which turns out to be positive. Alert awake orientedx3 Heart regular S1-S2 Lungs clear to auscultate bilateral DIRECTOR REPORT gross nonfocal Assessment and plan Chest pain/coronary artery disease Hypertension Abnormal stress test Continue to optimize medication for optimal blood pressure control as defined above Proceed with left heart catheterization Coding Level of Care Code Acute Code for Chg Fwd Diagnoses Other chest pain R07.89 Chest pain type: other chest pain Hypercholesterolemia E78.00 Coronary artery disease involving [place] coronary artery of [place] heart with unstable angina pectoris I25.110 Associated angina: with unstable angina Coronary Disease-Associated Artery/Lesion type: [place] artery [place] vs. transplanted heart: [place] heart Primary hypertension I10 Hypertension type: primary hypertension
[2024-08-17 21:39] LABS: Troponin 5 6HR 13.13 ng/L (0-10)
[2024-08-17 21:43] LABS: Troponin 5 6HR Delta 6.13 ng/L (0-12)
[2024-08-17 21:44] LABS: Glucose Point of Care 157 mg/dL (70-110)
--- NOTE | 2024-08-17 22:06 | ECG_ITS ---
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
[2024-08-18] VITALS (53 sets, daily range): BP systolic 90–190; BP diastolic 43–103; PULSE 69–83; RESP 13–30; TEMP 36.6–36.8; O2SAT 90–98
[2024-08-18 03:30] LABS: Basophils % 0.6 %; Eosinophils # 0.2 10^3/uL (0.0-0.8); Eosinophils % 3.6 %; Lymphocytes # 0.7 10^3/uL (0.8-4.8); Lymphocytes % 14.5 %; Mean Corpuscular HGB Conc 32.9 g/dL (30-55); Mean Corpuscular Hemoglobin 30.8 pg (27-33); Mean Corpuscular Volume 93.7 fl (85-98); Mean Platelet Volume 8.8 fL (7.4-10.4); Monocytes # 0.4 10^3/uL (0.2-0.9); Monocytes % 8.3 %; Neutrophils # 3.39 10^3/uL (1.8-7.7); Neutrophils % 72.4 %; Nucleated Red Blood Cells % 0 %; Platelet Count 191 10^3/cmm (157-399); Red Blood Count 3.31 10^6/uL (3.85-5.65); Red Cell Distribution Width 13.7 % (12.1-15.1); White Blood Count 4.69 10^3/uL (3.29-11.43)
[2024-08-18 03:49] LABS: Partial Thromboplastin Time 97.1 SECONDS (23.9-36.7)
[2024-08-18 03:56] LABS: Alanine Aminotransferase 12 U/L (0-33); Albumin Level 3.5 g/dL (3.5-5.2); Alkaline Phosphatase 44 U/L (35-105); Anion Gap 15.5 (5-19); Aspartate Amino Transferase 27 U/L (0-32); Blood Urea Nitrogen 5 mg/dL (8-23); Carbon Dioxide 25 mmol/L (22-29); Chloride 104 mmol/L (98-107); Creatinine Clr Calc Pharmacy 92.9666; Globulin 2.3 g/dL (1.3-4.6); Glomerular Filtration Rate 83.2 mL/min (90-130); Glucose 124 mg/dL (65-115); Osmolality Calculated 291 mOsm/kg (285-295); Potassium 3.5 mmol/L (3.5-5.1); Sodium 141 mmol/L (136-145); Total Bilirubin 0.4 mg/dL (0.15-1.2); Total Protein 5.8 g/dL (6.6-8.7)
[2024-08-18 04:10] LABS: NT Pro B Type Natriuretic Pept 329 pg/mL (0-125)
--- NOTE | 2024-08-18 07:04 | XACV_ITS ---
Exam Room: [facility] Ht: 142 cm Wt: 85 kg BSA: 1.89 m2 Gender: Female : 1955 Any Known Allergies: Other Exam Priority: Routine Procedure(s): Procedure Description: Diagnostic procedure Procedure Description: PCI procedure Procedure Description: Left Heart Catheterization Procedure Description: Left ventriculography Procedure Description: Drug Eluting Coronary Stent Procedure Description: PTCA Procedure Description: Miscellaneous Procedure Description: ACT Procedure Description: Coronary Angiography Dannielle FARRAR; Diagnostic Cath Status: Urgent Recommendations * 1-Return to inpatient for close monitoring and routine cath care 2-Risk factor modification for secondary prevention 3-Statin and aspirin 81 mg life-long, if tolerated 4-Patient was pre-loaded with 600 mg of Plavix, continue Plavix 75mg p.o. daily for at least one year. We will assess at the end of one year again to continue if further or not 5-Continue optimal medical management 6-Follow up with Dr. Spicer in four weeks and your primary care in 10 days. Diagnostic RX Recommendation: PCI w/o planned CABG Ventriculography Ejection Fraction: 55.0 % Pressures Phase:Rest AO : 123 / 54 ( 75 ) @ 11:30:00 AM 190 / 49 ( 84 ) @ 11:46:00 AM 152 / 59 ( 92 ) @ 11:52:00 AM 148 / 55 ( 86 ) @ 12:04:00 PM 190 / 71 ( 117 ) @ 12:20:00 PM 215 / 86 ( 136 ) @ 12:20:00 PM 188 / 76 ( 116 ) @ 12:34:00 PM 193 / 75 ( 119 ) @ 12:34:00 PM LV : 195 / 0 / 26 @ 12:33:00 PM 190 / 3 / 28 @ 12:33:00 PM 190 / 3 / 27 @ 12:34:00 PM Valves Phase:DefaultPhase AV : 1.0 @ 12:51:14 PM AV Mean Gradient: 0.0 @ 12:51:14 PM Clinical Evaluation EBL: 5mL-10mL Procedural Details Pre-Procedure Time Out. Identified patient by full name and date of as verbalized by the patient/guarantor. Does the consent match the physician's order: Yes. Accurate & Complete Informed Consent: Yes. Inpatient/Outpatient History & Physical on Chart: Yes. If H&P is completed, is and addenduem needed: No; If yes, is the addendum complete: N/A. Visualize and Verify Site with Patient/Guarantor: N/A. Relevant Radiology Images available: N/A. Pre-op teaching completed and patient verbalized understanding. The risks, benefits, and alternatives of sedation and/or procedure were discussed by physician. The patient agrees to continue. Procedure started. [facility] Clinical Fraility Score: 5: Mildly Frail. Forms Examiner Indications: New Onset Angina. Chest Pain Symptom Assessment: Atypical Angina. Cardiovascular Instability: No. Correct patient, site and procedure confirmed by cath team. PERRLA. Strong, equal hand commercial account officer bilaterally. Lungs clear x 5 lobes. IV Site on Arrival: 20 gauge in the left upperarm. Oxygen started at 6liters/min via venti trach mask (ventimask at 31%). right groin was prepped with chloroprep then draped in the usual sterile fashion. right radial was prepped with chloroprep then draped in the usual sterile fashion. Physician arrived. Equipment: 6F - Radial. Cardiac Cath Pack. ACIST Manifold Kit Model BT 2000. Heparinized Saline (2 units/mL), 1000 mL bag. Baseline sample Acquired. HR: 74 BPM. Physician scrubbed in. Immediate Pre-Procedure Time Out. Correct Patient: Yes; Correct Procedure: Yes; Correct Site: Yes; Correct Patient Position: Yes; Correct Supplies: Yes; Dried Flammable Prep: Yes; Blood Products Available: N/A;. Lidocaine 1% infiltrated to the right radial. Arterial access obtained. Increased o2 to 40% venti mask. A 5 [place] TIG catheter in over wire. ACT drawn. Results 138 seconds. Therapeutic limits - pre-heparin administration 90-150 seconds and monitoring heparin during a vascular procedure >250 seconds. Multiple views taken of right coronary artery. Catheter removed over the exchange wire. Difficult to manipulate catheter using radial approach. Physician moving to femoral approach. A TR Band was successful obtaining hemostatsis at the Right Radial artery insertion site. TR band placed. Hemostasis obtained. Lidocaine 1% infiltrated to the right groin. Arterial access obtained with micropuncture set. Glidewire used. A 5 [place] JL4 catheter in over wire. Multiple views taken of left coronary artery. Catheter removed over the exchange wire. 6 [place] JR 4 SH guide catheter was inserted over the wire. Runthrough guidewire was advanced through the guide catheter to lesion in the distal RCA. Runthrough guidewire was advanced through the guide catheter to lesion in the distal RCA. 1st runthrough wire removed. Inflation number : 1 A AB TREK 2.50X15 RX BALLOON was prepped and advanced across the Mid RCA , then inflated to 14 MARIANA for 0:12 seconds. Balloon out. Inflation Number : 2 A IGOR Gunter SRIKANTH 2.75X22 JACKIE -Lot Number# [id number] exp date 12/16/2024 was prepped and advanced across the Mid RCA. The stent was deployed at 16 MARIANA for 0:19 seconds. Stent balloon out over wire. 3.0x12 NC balloon inserted. Unable to cross lesion. Balloon removed. ACT drawn. Results 362 seconds. Therapeutic limits - pre-heparin administration 90-150 seconds and monitoring heparin during a vascular procedure >250 seconds. Inflation number : 3 A IGOR AHUMADA EUPHORA RX [id number] BALLOON was prepped and advanced across the Mid RCA , then inflated to 16 MARIANA for 0:14 seconds. Inflation number: 4 The MDT NC EUPHORA RX [id number] BALLOON was reinflated across the Mid RCA, to 18 MARIANA for 0:15 seconds. Inflation number: 5 The MDT NC EUPHORA RX 3.26E25NT BALLOON was reinflated across the Mid RCA, to 18 MARIANA for 0:13 seconds. Inflation number: 6 The MDT NC EUPHORA RX 3.46K45FK BALLOON was reinflated across the Mid RCA, to 18 MARIANA for 0:12 seconds. Balloon out. 2.5x15 Trek balloon inserted then removed. Wire out. Results checked. Guide catheter out. 6 [place] XB 3 guide catheter was inserted over the wire. Runthrough guidewire was advanced through the guide catheter to lesion in the mid LAD. Inflation number : 1 A MDT NC EUPHORA RX [id number] BALLOON was prepped and advanced across the Mid LAD , then inflated to 8 MARIANA for 0:10 seconds. Inflation number: 2 The MDT NC EUPHORA RX 3.66P28PG BALLOON was reinflated across the Mid LAD, to 18 MARIANA for 0:28 seconds. Inflation number: 3 The MDT NC EUPHORA RX 3.91N10SC BALLOON was reinflated across the Mid LAD, to 20 MARIANA for 0:23 seconds. Inflation number: 4 The MDT NC EUPHORA RX 3.89D11DQ BALLOON was reinflated across the Mid LAD, to 18 MARIANA for 0:10 seconds. Balloon inserted to lesion in the mid LAD. Balloon out. Results checked. Wire out. ACT drawn. Results 292 seconds. Therapeutic limits - pre-heparin administration 90-150 seconds and monitoring heparin during a vascular procedure >250 seconds. Guide catheter out. A 5 [place] Angled Pig catheter in over wire. EDP Sample taken: LV 195/0,26; HR: 76 BPM; SpO2: 97%. LV gram performed in [place] @ 10 mL/second for a total of 20 mL. EDP Sample taken: LV 190/3,28; HR: 77 BPM; SpO2: 97%. Pullback taken: LV 190/3,27; AO 188/76(116); Mean: 0mmHg, Peak to Peak: 1mmHg, SEP: 23sec/min; HR: 77 BPM; SpO2: 97%. Catheter removed over the standard wire. A Right femoral angiogram was performed to determine safe placement of closure device. Physician scrubbed out. A Suture was successful obtaining hemostatsis at the Right Femoral artery insertion site. Sheath(s) sutured into position with 2-0 silk and sterile 4x4's and Op-site applied over the site. No oozing or signs and symptoms of hematoma noted. Arterial sheath flushed and connected to tranducer and pressure bag with heparinized saline. Post Procedure: Pulses reassessed and unchanged. PERRLA. Strong, equal hand commercial account officer bilaterally. No VTE prophylaxis required. Contrast type used: Omnipaque 300 mgI/mL, 500 mL bottle. Complications: none. Estimated blood loss: 5mL-10mL. Post-op diagnosis: high grade MID LAD instent restenosis, MidRCA high grade lesion. Responsiveness - Normal response to verbal stimuli; alert and oriented, PERRLA. Airway - Unaffected, no intervention required; spontaneous ventilation. Circulation: W/N/L, pulses unchanged. Nausea/Vomiting: No. Medication's Wasted: Lidocaine 1% = 8 mL. Medication's Wasted: Nitro = 49.6 mg. Medication's Wasted: Heparin = 2000 units. Medication's Wasted: Other = fentanyl 50 mcg. Total IV fluids: 125 mL. Procedure completed. Patient transferred by bed to ICU. Vital chart was stopped. Access Site Site: Right Radial artery Sheath Size: 6 Fr Hemostasis Method: TR Band Hemostasis Success: Successful Site: Right Femoral artery Sheath Size: 6 Fr Hemostasis Method: Suture Hemostasis Success: Successful Procedure Medications Start: 11:13 AM Stop: 11:13 AM Medication: Benadryl Amount: 25 mg Route: I.V. Start: 11:15 AM Stop: 11:15 AM Medication: Versed Amount: 1 mg Route: I.V. Start: 11:21 AM Stop: 11: AM Medication: Fentanyl Amount: 25 mcg Route: I.V. Start: 11:41 AM Stop: 11: AM Medication: Versed Amount: 1 mg Route: I.V. Start: 11:51 AM Stop: 11:51 AM Medication: Heparin Amount: 7000 units Route: I.V. Start: 11:54 AM Stop: 11:54 AM Medication: Aggrastat 12.5 mg/250 mL Amount: 43 ml Route: I.V. bolus Start: 12:04 PM Stop: 12:04 PM Medication: Aggrastat 12.5 mg/250 mL Amount: 15.5 ml/hr Route: I.V. drip Start: 12:03 PM Stop: 12:03 PM Medication: Nitrogylcerin Amount: 200 mcg Route: I.C. Start: 12:22 PM Stop: 12:22 PM Medication: Fentanyl Amount: 25 mcg Route: I.V. Start: 12:30 PM Stop: 12:30 PM Medication: Hydralazine Amount: 10 mg Route: I.V. I, the attending physician, have reviewed and verified all procedure medications. Yes, all medications given per verbal order History/Risk Factors Hypertension: Yes Dyslipidemia: No Peripheral Arterial Disease (PAD): No Myocardial Infarction (IA): No Obesity: No Renal Disease: No Tobacco Use: Former Prior Interventions PCI: Yes CABG: No Valve Surgery: No Report Signatures Finalized by Raúl Spicer MD on 09/07/2024 01:18 AM
[2024-08-18] MEDS: montelukast sodium 10 mg Tablet PO (08:31)
[2024-08-18] MEDS: aspirin 81 mg EC Tablet PO ×2 (08:31→13:28)
[2024-08-18] MEDS: fluoxetine 20 mg Capsule PO (08:31)
[2024-08-18] MEDS: atorvastatin 40 mg Tablet 30 MG PO (08:31)
[2024-08-18] MEDS: pantoprazole DR 40 mg Tablet PO (08:31)
[2024-08-18] MEDS: levothyroxine 112 mcg Tablet PO (08:32)
[2024-08-18] MEDS: gabapentin 100 mg Capsule PO (08:32)
[2024-08-18] MEDS: cilostazol 100 mg Tablet PO ×2 (08:32→17:18)
[2024-08-18 08:41] LABS: Glucose Point of Care 111 mg/dL (70-110)
[2024-08-18 10:08] LABS: Partial Thromboplastin Time 50.7 SECONDS (23.9-36.7)
[2024-08-18] MEDS: heparin drip 25,000 UNIT/500 ML PREMIX 24 UNIT IV (10:41)
[2024-08-18] MEDS: heparin 5,000 unit/mL INJ 1 mL IVP (10:41)
--- NOTE | 2024-08-18 11:15 | W.PM.OPSUD ---
Surgery/Procedure H&P Update DATE OF PROCEDURE: August 18, 2024 DATE H&P PERFORMED: 08/17/24 H&P UPDATE INFORMATION: I have reviewed H&P completed within last 30 days, I have examined patient prior to procedure and No changes to prior documentation PREOP DIAGNOSIS: Abnormal stress test/chest pain PATIENT REASSESSED PRIOR TO SEDATION, WITH NO CHANGE NOTED: Yes PHYSICAL EXAM: alert, oriented x 3, clear to auscultation bilaterally, regular rate & rhythm and operative site marked AIRWAY EVAL/ANESTHESIA PLAN: ASA II, Risks, benefits & alternatives of sedation and/or procedure discussed and Patient agrees to continue as planned
--- NOTE | 2024-08-18 12:44 | P.PN_ITS ---
Subjective 2 Subjective: Patient was seen this morning, she is alert oriented x 3, follows all commands, she is resting comfortably she did have 1 episode of chest discomfort overnight she tells me, patient did transiently require Levophed yesterday but it was stopped about 7:30 PM, I suspect her hypotension was secondary to the nitroglycerin that she received at 11 AM yesterday with all her blood pressure medications in addition to that caused hypotension, currently she is a bit hypertensive, will continue to monitor she agrees, plan on cardiac catheterization today, nonetheless she denies any fevers, no cough, no increased drainage from her tracheostomy site Vitals/I&O/Wt Last Vital Signs Temp 97.9 F 08/18/24 04:58 Pulse 76 08/18/24 10:30 Resp 23 H 08/18/24 10:30 BP 90/59 08/18/24 11:00 Pulse Ox 95 08/18/24 10:17 O2 Del Method CAG, Trach Collar 08/18/24 10:17 O2 Flow Rate 10 08/18/24 03:41 FiO2 30 08/18/24 10:17 08/17/24 08/18/24 08/18/24 22:59 06:59 14:59 Intake Total 936.517 / 1515.684 183.4 / 1699.084 158.933 / 158.933 Output Total 500 / 500 700 / 1200 400 / 400 Balance 436.517 / 1015.684 -516.6 / 499.084 -241.067 / -241.067 Weight last 48 hrs Weight 84.912 kg Weight 87.498 kg Weight 87.498 kg Physical Exam 2 Const: COMMON NORMALS: no acute distress and patient oriented x3 HENMT: COMMON NORMALS: normocephalic HEAD & SCALP: normocephalic Neck/C-Spine: COMMON NORMALS: no JVD OTHER: Tracheostomy site looks clean and dry Resp: COMMON NORMALS: normal respiratory effort, No retractions, No use of accessory muscles and clear to auscultation bilaterally AUSCULTATION: clear to auscultation bilaterally Cardio: COMMON NORMALS: no JVD, regular rate, regular rhythm, S1 normal heart sound present and S2 normal heart sound present RATE: regular rate RHYTHM: regular rhythm HEART SOUNDS: S1 normal heart sound present and S2 normal heart sound present GI: COMMON NORMALS: Normal to inspection, nondistended, normoactive bowel sounds present and non-tender Extremity: COMMON NORMALS: no pedal edema Neuro: COMMON NORMALS: patient oriented x3 Psych: COMMON NORMALS: mental status grossly normal Data 08/18/24 03:15 08/18/24 03:15 A&P Assessment and plan (1) Chest pain: -Episode of chest pain and during the night -Continue aspirin, statin, Coreg -Serial EKGs, serial troponins, telemetry monitoring -Cardiac echo CONCLUSIONS Normal left ventricle systolic function. Normal LVEF 65%. Normal right ventricular size and systolic function. Mild mitral regurgitation. No other significant valvular abnormality noted. Normal right heart and pulmonary artery systolic pressure. Cardiac stress test IMPRESSIONS Medium sized area of old myocardial infarction in the mid inferior wall surrounded by moderate to large area of medium to large area of moderate swetha- infarct ischemia. This is abnormal stress test. EKG segment will be documented separately. -Continue heparin drip -Plan on cath, n.p.o. Qualifiers: Chest pain type: other chest pain Qualified Code(s): R07.89 - Other chest pain (2) CAD (coronary artery disease): Last stent 7 years ago and patient with extensive vascular disease and a positive family history Will order high-sensitivity C-reactive protein and lipoprotein a Qualifiers: Coronary Disease-Associated Artery/Lesion type: [place] artery [place] vs. transplanted heart: [place] heart Associated angina: with unstable angina Qualified Code(s): I25.110 - Atherosclerotic heart disease of [place] coronary artery with unstable angina pectoris (3) PAD (peripheral artery disease): Stable (4) HTN (hypertension): Qualifiers: Hypertension type: primary hypertension Qualified Code(s): I10 - Essential (primary) hypertension (5) CHF exacerbation: - Systolic diastolic CHF exacerbation - nonpitting edema -Chest x-ray shows mild interstitial pulm edema versus infiltrates -Monitor (6) Diabetes mellitus: Low-dose sliding scale (7) Hypertensive urgency: (8) Tracheostomy in place: - Tracheostomy in place -Does complain of mucus production from tracheostomy but not on more than usual ? Chest x-ray showing mild interstitial pulm edema versus infiltrates ? CRP 24 (9) Throat cancer: (10) Elevated TSH: Low T3, low T4 -Will adjust levothyroxine dose based on clinical progress given CAD as above Plan Low blood pressure -Lactic acid within normal limits -hemoglobin within normal limits -Repeat troponins within normal limits -Afebrile overnight, -Now a bit hypertensive -Off Levophed since 730 last night -Potentially combination of blood pressure medications Plan for today cardiac catheterization, spoke to patient, spoke to nursing staff, spoke to bingo floater, discussed stress test findings, blood work, low blood pressures Attestations 2 Medical Necessity Statement*: Patient requires hospitalization for low blood pressure, CAD, with recurrent chest pain, positive stress test, undergoing cardiac catheterization Diagnoses Other chest pain R07.89 Chest pain type: other chest pain Coronary artery disease involving [place] coronary artery of [place] heart with unstable angina pectoris I25.110 Coronary Disease-Associated Artery/Lesion type: [place] artery [place] vs. transplanted heart: [place] heart Associated angina: with unstable angina PAD (peripheral artery disease) I73.9 Primary hypertension I10 Hypertension type: primary hypertension CHF exacerbation I50.9 Diabetes mellitus E11.9 Hypertensive urgency I16.[address] Z93.0 Throat cancer C14.0 Elevated TSH R79.89
--- NOTE | 2024-08-18 12:47 | P.PN_ITS ---
Subjective 2 Subjective: Status post left heart catheterization today. Patient was noted to have significant mid RCA lesion treated with 1 drug-eluting stent. Patient was also noted to have significant in-stent restenosis of mid LAD stent treated with noncompliant balloon, 90% lesion was reduced to 30% with good angiographic result. Patient was started on Aggrastat since she was not able to take the Plavix. Plan is to give her 600 mg of Plavix and half an hour after that turn off the Aggrastat drip. Vitals/I&O/Wt Last Vital Signs Temp 97.9 F 08/18/24 04:58 Pulse 76 08/18/24 10:30 Resp 23 H 08/18/24 10:30 BP 90/59 08/18/24 11:00 Pulse Ox 95 08/18/24 10:17 O2 Del Method CAG, Trach Collar 08/18/24 10:17 O2 Flow Rate 10 08/18/24 03:41 FiO2 30 08/18/24 10:17 08/17/24 08/18/24 08/18/24 22:59 06:59 14:59 Intake Total 936.517 / 1515.684 183.4 / 1699.084 158.933 / 158.933 Output Total 500 / 500 700 / 1200 400 / 400 Balance 436.517 / 1015.684 -516.6 / 499.084 -241.067 / -241.067 Weight last 48 hrs Weight 187 lb 3.2 oz Weight 192 lb 14.4 oz Weight 192 lb 14.4 oz Physical Exam 2 Const: OTHER: GENERAL: Patient is alert, awake and oriented x3. HEART: Regular S1 and S2. No murmur, rub or gallop. LUNGS: Clear to auscultate bilaterally. CENTRAL NERVOUS SYSTEM: Grossly nonfocal. EXTREMITIES: Lower extremities with out edema bilaterally. Data 08/18/24 03:15 08/18/24 03:15 A&P Assessment and plan (1) CAD (coronary artery disease): Status post PCI to mid RCA for severe stenosis treated with single drug-eluting stent postdilated with noncompliant balloon. Status post balloon angioplasty to mid LAD stent for high-grade in-stent restenosis. Excellent angiographic result was achieved. Coronary spasm was noted in the proximal part of the RCA which was resolved after nitro and pulling of the wire. Continue aspirin and statin load patient with 600 mg of Plavix now. We will turn off Aggrastat drip half hour after giving Plavix. Right sheath to be pulled out from the right groin once PTT is less than 45 with 5-hour bedrest. Qualifiers: Coronary Disease-Associated Artery/Lesion type: [place] artery [place] vs. transplanted heart: [place] heart Associated angina: with unstable angina Qualified Code(s): I25.110 - Atherosclerotic heart disease of [place] coronary artery with unstable angina pectoris (2) HTN (hypertension): Optimize medication to control the blood pressure. Qualifiers: Hypertension type: primary hypertension Qualified Code(s): I10 - Essential (primary) hypertension (3) Hypercholesterolemia: Continue statin. (4) Hypertensive urgency: Will optimize medications. Attestations 2 Medical Necessity Statement*: Patient require continuation hospitalization for above defined care. Coding Level of Care Code Acute Code for [facility] Diagnoses Coronary artery disease involving [place] coronary artery of [place] heart with unstable angina pectoris I25.110 Coronary Disease-Associated Artery/Lesion type: [place] artery [place] vs. transplanted heart: [place] heart Associated angina: with unstable angina Primary hypertension I10 Hypertension type: primary hypertension Hypercholesterolemia E78.00 Hypertensive urgency I16.0
[2024-08-18] MEDS: ondansetron 2 mg/ML SDV 2 mL 4 MG IVP (13:28)
[2024-08-18] MEDS: clopidogrel 300 mg Tablet 600 MG PO (13:28)
[2024-08-18 15:44] LABS: Partial Thromboplastin Time 50.7 SECONDS (23.9-36.7)
[2024-08-18] MEDS: nitroglycerin 1 gm/inch oint Pkt 1 INCH TOPICAL (16:36)
[2024-08-18 17:10] LABS: Glucose Point of Care 126 mg/dL (70-110)
--- NOTE | 2024-08-18 17:36 | PC.NURSE ---
TR band removed per protocol from right wrist at 1700. Puncture site free of hematoma, patient denies pain currently. Puncture site dressed with gauze and tegaderm, noted to be dry and intact.
--- NOTE | 2024-08-18 18:59 | PC.NURSE ---
Sheath removed by this nurse and charge nurse Lui assisted at bedside. Patient had minimal pain, pressure held for 25 minutes. Small hematoma noted and marked, puncture site coved with gauze and tegaderm. Dressing dry and intact. Vital noted to be stable at this time.
[2024-08-18] MEDS: morphine 4 mg/mL SDV 1 mL 2 MG IVP (20:19)
[2024-08-18 21:15] LABS: Glucose Point of Care 129 mg/dL (70-110)
--- NOTE | 2024-08-18 23:27 | PC.NURSE ---
Spoke with Dr. Rothman in reference to patient's scheduled dose of topical nitro and patient's denial of chest pain and trending low BP, currently 110/55 (73). Received orders to discontinue nitro paste.
[2024-08-19] VITALS (69 sets, daily range): BP systolic 73–200; BP diastolic 31–78; PULSE 73–92; RESP 15–33; TEMP 36.8–37.3; O2SAT 88–99
[2024-08-19] MEDS: morphine 4 mg/mL SDV 1 mL 2 MG IVP (00:24)
[2024-08-19 01:00] LABS: Glucose Point of Care 127 mg/dL (70-110)
--- NOTE | 2024-08-19 01:08 | PC.NURSE ---
Contacted Dr. Rothman in reference to patient's hypertension, BP 194/79, still denying chest pain. Received orders for Hydralazine 10mg IVP once. Move on to nitro on DEC if chest pain develops.
[2024-08-19] MEDS: hyDRALAzine 20 mg/mL INJ 1 mL 10 MG IVP (01:24)
--- NOTE | 2024-08-19 02:25 | PC.NURSE ---
Spoke with Dr. Rothman in reference to patient's hypotension, recently 78/45 (56), not complaining of pain nausea or dizziness. Received orders for 250mL NS bolus.
[2024-08-19] MEDS: sodium chloride 0.9% 250 ML 999 ML IV ×2 (02:37→03:08)
--- NOTE | 2024-08-19 02:58 | PC.NURSE ---
Spoke with Dr Rothman again in reference to continueing hypotension. Received orders for another 250mL bolus.
--- NOTE | 2024-08-19 03:20 | PC.NURSE ---
Contacted Dr. Rothman in reference to continuing hypotension, 69/37 (47) currently, with the second 250mL bolus almost complete. Received orders for levophed to maintain MAP greater than or equal to 65. Restarted existing levophed order on DEC at 4mcg/min.
[2024-08-19] MEDS: norepinephrine 4 MG/250 ML BAG 15 MG IV (03:23)
[2024-08-19 04:41] LABS: Glucose Point of Care 107 mg/dL (70-110)
[2024-08-19 04:48] LABS: Basophils % 0.4 %; Eosinophils # 0.1 10^3/uL (0.0-0.8); Eosinophils % 1.9 %; Hematocrit 32.2 % (36-47); Lymphocytes # 0.6 10^3/uL (0.8-4.8); Lymphocytes % 8.7 %; Mean Corpuscular HGB Conc 32.9 g/dL (30-55); Mean Corpuscular Hemoglobin 31.3 pg (27-33); Mean Platelet Volume 9.1 fL (7.4-10.4); Monocytes # 0.6 10^3/uL (0.2-0.9); Monocytes % 9.2 %; Neutrophils # 5.43 10^3/uL (1.8-7.7); Neutrophils % 79.1 %; Nucleated Red Blood Cells % 0 %; Platelet Count 199 10^3/cmm (157-399); Red Blood Count 3.39 10^6/uL (3.85-5.65); White Blood Count 6.87 10^3/uL (3.29-11.43)
[2024-08-19 05:03] LABS: Anion Gap 12.5 (5-19); Blood Urea Nitrogen 6 mg/dL (8-23); Carbon Dioxide 26 mmol/L (22-29); Chloride 99 mmol/L (98-107); Glomerular Filtration Rate 83.2 mL/min (90-130); Glucose 117 mg/dL (65-115); Osmolality Calculated 277 mOsm/kg (285-295); Potassium 3.5 mmol/L (3.5-5.1); Sodium 134 mmol/L (136-145)
[2024-08-19] MEDS: levothyroxine 112 mcg Tablet PO (08:15)
[2024-08-19 08:30] LABS: Glucose Point of Care 121 mg/dL (70-110)
[2024-08-19] MEDS: albuterol 2.5 mg/3 mL Neb INHALATION (09:37)
[2024-08-19] MEDS: ipratropium 0.5 mg/2.5 mL Neb INHALATION (09:37)
[2024-08-19] MEDS: atorvastatin 40 mg Tablet PO (10:03)
[2024-08-19] MEDS: fluoxetine 20 mg Capsule PO (10:03)
[2024-08-19] MEDS: aspirin 81 mg EC Tablet PO (10:03)
[2024-08-19] MEDS: pantoprazole DR 40 mg Tablet PO (10:04)
[2024-08-19] MEDS: clopidogrel 75 mg Tablet PO (10:04)
[2024-08-19] MEDS: montelukast sodium 10 mg Tablet PO (10:04)
[2024-08-19] MEDS: cilostazol 100 mg Tablet PO ×2 (10:05→17:31)
[2024-08-19] MEDS: gabapentin 100 mg Capsule PO (10:05)
[2024-08-19 12:29] LABS: Glucose Point of Care 217 mg/dL (70-110)
[2024-08-19] MEDS: insulin lispro 100 unit/1 mL SUBCUT ×2 (12:40→20:49)
--- NOTE | 2024-08-19 15:26 | PM.PN ---
Documented by User: Aruna Carranza NP 08/19/24 15:33 Subjective Subjective: Patient doing well status post left heart catheterization yesterday. Patient was noted to have significant mid RCA lesion treated with 1 drug-eluting stent. Patient was also noted to have significant in-stent restenosis of mid LAD stent treated with noncompliant balloon, 90% lesion was reduced to 30% with good angiographic result. Patient was started on Aggrastatthen transitioned to Plavix. She has no episodes of chest pain or shortness of breath at this time. Patient had an episode of hypertension was given hydralazine 10 mg. She has labile blood pressure. She was then required to start a Levophed drip. This has been discontinued. Blood pressure still soft at this time. I have reviewed patient's current medications as well as home medications with Dr. Spicer for further recommendations. Medications: Reviewed: Yes Vitals/I&O/Wt Last Vital Signs Temp 99.1 F 08/19/24 07:30 Pulse 89 08/19/24 13:00 Resp 15 08/19/24 13:00 BP 94/50 08/19/24 13:00 Pulse Ox 90 08/19/24 13:00 O2 Del Method Room Air 08/19/24 13:00 O2 Flow Rate 40 08/19/24 10:30 FiO2 30 08/19/24 08:00 08/19/24 08/19/24 08/19/24 06:59 14:59 22:59 Intake Total 1132.625 / 1291.558 818.625 / 818.625 Output Total 300 / 300 Balance 1132.625 / 891.558 518.625 / 518.625 Weight last 48 hrs Weight 190 lb 0.175 oz Weight 190 lb 1.745 oz Weight 187 lb 3.2 oz Physical Exam Narrative: General: No apparent distress, healthy appearing, well nourished Muskuloskeletal: Full ROM Lymphatic: no lymphedema noted Respiratory: Normal respiratory effort, clear to auscultation bilaterally throughout all lung patton, no use of accessory muscles Cardio: No JVD, regular rate, regular rhythm, S1 S2 normal, no murmurs, peripheral pulses 2+ radial palpated bilaterally, groin cath site clean dry intact w/o s/s of hematoma present Extremities: Full ROM, normal, normal capillary refill, no cyanosis or edema Neuro: Alert and oriented x4, no focal motor deficits Psych: Affect normal, denies suicidal ideation, mental status grossly normal Skin: No rashes or lesions noted, no wounds Data 08/20/24 04:42 08/20/24 04:42 A&P Assessment and plan (1) CAD (coronary artery disease): Status post PCI to mid RCA for severe stenosis treated with single drug-eluting stent postdilated with noncompliant balloon. Status post balloon angioplasty to mid LAD stent for high-grade in-stent restenosis. Excellent angiographic result was achieved. Coronary spasm was noted in the proximal part of the RCA which was resolved after nitro and pulling of the wire. Recommend dual antiplatelet therapy for 1 year including aspirin and Plavix. Qualifiers: Associated angina: with unstable angina Coronary Disease-Associated Artery/Lesion type: [place] artery [place] vs. transplanted heart: [place] heart Qualified Code(s): I25.110 - Atherosclerotic heart disease of [place] coronary artery with unstable angina pectoris (2) HTN (hypertension): Patient's blood pressure is quite labile. We recommend to initiate metoprolol succinate 12.5 daily starting tomorrow morning then in the evening patient to get lisinopril 2.5 mg, recommend discontinue losartan discontinue isosorbide discontinue Pletal. Qualifiers: Hypertension type: primary hypertension Qualified Code(s): I10 - Essential (primary) hypertension (3) Hypercholesterolemia: Continue statin. (4) Hypertensive urgency: As stated above Plan Patient is doing well status post PCI to the mid RCA. From cardiology standpoint patient may be discharged with above medication recommendations. F/U in 1 week. Continue DAPT x1 year. Attestations Medical Necessity Statement*: Patient require continuation hospitalization for above defined care. Coding Level of Care Code Acute Code for [facility] Fwd Diagnoses Coronary artery disease involving [place] coronary artery of [place] heart with unstable angina pectoris I25.110 Associated angina: with unstable angina Coronary Disease-Associated Artery/Lesion type: [place] artery [place] vs. transplanted heart: [place] heart Primary hypertension I10 Hypertension type: primary hypertension Hypercholesterolemia E78.00 Hypertensive urgency I16.0 Documented by User: Raúl Spicer MD 08/21/24 00:19 Subjective Subjective: Patient was evaluated and cared for in conjunction with an advanced practice practitioner. I personally examined the patient and reviewed the chart and all pertinent data including imaging, telemetry, and laboratory results. I discussed the patient in detail with the advanced practice practitioner. Please see their note for complete H&P testing result and agreed upon plan of care for the patient. Patient doing well status post left heart catheterization yesterday. Patient was noted to have significant mid RCA lesion treated with 1 drug-eluting stent. Patient was also noted to have significant in-stent restenosis of mid LAD stent treated with noncompliant balloon, 90% lesion was reduced to 30% with good angiographic result. Patient was started on Aggrastatthen transitioned to Plavix. She has no episodes of chest pain or shortness of breath at this time. Patient had an episode of hypertension was given hydralazine 10 mg. She has labile blood pressure. She was then required to start a Levophed drip. This has been discontinued. Blood pressure still soft at this time. I have reviewed patient's current medications as well as home medications with Dr. Spicer for further recommendations. Data 08/20/24 04:42 08/20/24 04:42 A&P Assessment and plan (1) CAD (coronary artery disease): Qualifiers: Associated angina: with unstable angina Coronary Disease-Associated Artery/Lesion type: [place] artery [place] vs. transplanted heart: [place] heart Qualified Code(s): I25.110 - Atherosclerotic heart disease of [place] coronary artery with unstable angina pectoris (2) HTN (hypertension): Qualifiers: Hypertension type: primary hypertension Qualified Code(s): I10 - Essential (primary) hypertension (3) Hypercholesterolemia: (4) Hypertensive urgency: Coding Level of Care Code Acute Code for [facility] Fwd Diagnoses Coronary artery disease involving [place] coronary artery of [place] heart with unstable angina pectoris I25.110 Associated angina: with unstable angina Coronary Disease-Associated Artery/Lesion type: [place] artery [place] vs. transplanted heart: [place] heart Primary hypertension I10 Hypertension type: primary hypertension Hypercholesterolemia E78.00 Hypertensive urgency I16.0
--- NOTE | 2024-08-19 16:19 | PM.PN ---
Subjective Subjective: Patient was seen this morning, she is alert oriented x 3, following all commands, she is status post cath yesterday, had 1 stent placement and balloon angioplasty denies any chest pain overnight, she did have episodes of hypotension after hydralazine, requiring transient Levophed, currently blood pressures are normotensive, denies any chest pain, no palpitations, no lightheadedness, no dizziness Vitals/I&O/Wt Last Vital Signs Temp 99.1 F 08/19/24 07:30 Pulse 89 08/19/24 13:00 Resp 15 08/19/24 13:00 BP 94/50 08/19/24 13:00 Pulse Ox 90 08/19/24 13:00 O2 Del Method Room Air 08/19/24 13:00 O2 Flow Rate 40 08/19/24 10:30 FiO2 30 08/19/24 08:00 08/19/24 08/19/24 08/19/24 06:59 14:59 22:59 Intake Total 1132.625 / 1291.558 818.625 / 818.625 Output Total 300 / 300 Balance 1132.625 / 891.558 518.625 / 518.625 Weight last 48 hrs Weight 86.188 kg Weight 86.232 kg Weight 84.912 kg Physical Exam Const: COMMON NORMALS: no acute distress and patient oriented x3 HENMT: OTHER: Tracheostomy in place Resp: COMMON NORMALS: normal respiratory effort, No retractions, No use of accessory muscles and clear to auscultation bilaterally AUSCULTATION: clear to auscultation bilaterally Cardio: COMMON NORMALS: regular rate, regular rhythm, S1 normal heart sound present and S2 normal heart sound present RATE: regular rate RHYTHM: regular rhythm HEART SOUNDS: S1 normal heart sound present and S2 normal heart sound present GI: COMMON NORMALS: Normal to inspection, nondistended, normoactive bowel sounds present and non-tender Extremity: COMMON NORMALS: no pedal edema Neuro: COMMON NORMALS: patient oriented x3 Psych: COMMON NORMALS: mental status grossly normal Data 08/19/24 04:27 08/19/24 04:27 A&P Assessment and plan (1) Chest pain: -Episode of chest pain and during the night -Continue aspirin, statin, Coreg -Serial EKGs, serial troponins, telemetry monitoring -Cardiac echo CONCLUSIONS Normal left ventricle systolic function. Normal LVEF 65%. Normal right ventricular size and systolic function. Mild mitral regurgitation. No other significant valvular abnormality noted. Normal right heart and pulmonary artery systolic pressure. Cardiac stress test IMPRESSIONS Medium sized area of old myocardial infarction in the mid inferior wall surrounded by moderate to large area of medium to large area of moderate [place]- infarct ischemia. This is abnormal stress test. EKG segment will be documented separately. # Status post cardiac cath, drug-eluting stent to mid RCA, with in-stent restenosis of mid LAD treated with noncompliant balloon, 90% lesion was reduced to 30% ? Continue aspirin, statin, Plavix ? Will consider Coreg based on blood pressure Qualifiers: Chest pain type: other chest pain Qualified Code(s): R07.89 - Other chest pain (2) CAD (coronary artery disease): Last stent 7 years ago and patient with extensive vascular disease and a positive family history Will order high-sensitivity C-reactive protein and lipoprotein a Qualifiers: Coronary Disease-Associated Artery/Lesion type: [place] artery [place] vs. transplanted heart: [place] heart Associated angina: with unstable angina Qualified Code(s): I25.110 - Atherosclerotic heart disease of [place] coronary artery with unstable angina pectoris (3) PAD (peripheral artery disease): Stable (4) HTN (hypertension): Qualifiers: Hypertension type: primary hypertension Qualified Code(s): I10 - Essential (primary) hypertension (5) CHF exacerbation: - Systolic diastolic CHF exacerbation - nonpitting edema -Chest x-ray shows mild interstitial pulm edema versus infiltrates -Monitor (6) Diabetes mellitus: Low-dose sliding scale (7) Hypertensive urgency: (8) Tracheostomy in place: - Tracheostomy in place -Does complain of mucus production from tracheostomy but not on more than usual ? Chest x-ray showing mild interstitial pulm edema versus infiltrates ? CRP 24 (9) Throat cancer: (10) Elevated TSH: Low T3, low T4 -Will adjust levothyroxine dose based on clinical progress given CAD as above Plan Low blood pressure -Lactic acid within normal limits -hemoglobin within normal limits -Repeat troponins within normal limits -Afebrile overnight, -Now a bit normotensive -Off Levophed -Potentially combination of blood pressure medications Plan for today monitor blood pressures, blood pressures seem to fluctuate, spoke to cardiology Attestations Medical Necessity Statement*: Patient requires hospitalization for chest pain status post cath, now with fluctuating blood pressures Diagnoses Other chest pain R07.89 Chest pain type: other chest pain Coronary artery disease involving [place] coronary artery of [place] heart with unstable angina pectoris I25.110 Coronary Disease-Associated Artery/Lesion type: [place] artery [place] vs. transplanted heart: [place] heart Associated angina: with unstable angina PAD (peripheral artery disease) I73.9 Primary hypertension I10 Hypertension type: primary hypertension CHF exacerbation I50.9 Diabetes mellitus E11.9 Hypertensive urgency I16.[address] Z93.0 Throat cancer C14.0 Elevated TSH R79.89
[2024-08-19 16:33] LABS: Lipoprotein (a) 101 nmol/L (<75)
[2024-08-19 17:27] LABS: Glucose Point of Care 131 mg/dL (70-110)
[2024-08-19] MEDS: enoxaparin 40 mg/0.4 mL Syringe SUBCUT (17:30)
[2024-08-19] MEDS: acetaminophen 325 mg Tablet 650 MG PO (17:31)
--- NOTE | 2024-08-19 19:15 | PC.NURSE ---
Shift summary: Pt complaining of headache this am, acetaminophen admin 1 time relived H/A. Pt had Levophed infusing at 2 at shift report, MAP > 74, gtt stopped. Pt using CAG at 40% in am. Attempted room air mid day, her sats were staying decent until she nodded off while sitting in chair and her chin started to cover her trach, Ended up back om CAG at a lower O2 amount. She tolerated this very well the rest of the shift as O2 sats stayed above 94%. She started sitting up in chair at lunch time and remained the rest of shift with the occasional trip to [facility]. She has a good appetite eating the majority of her meals. Her urine output was low but adequate at 400ml. It was dark yellow with strong odor. Pt did use shampoo cap her hair and bath wipes to bath today. Her heart rhythm stayed consistent.. Sinus with first degree block noted. 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 Right wrist site no issues either.
[2024-08-19 20:34] LABS: Glucose Point of Care 167 mg/dL (70-110)
--- NOTE | 2024-08-19 20:52 | PC.NURSE ---
Contacted Dr. Rothman in reference to potentially moving this patient to [facility]. Dr. Rothman agreed and will put in the orders shortly.
--- NOTE | 2024-08-19 23:00 | PC.NURSE ---
Patient with low blood pressure 73/36 rechecked 76/37. o2 saturations wnl. Patient alert and oriented x 4. Noted patient had to be on levophed last night due to low bp, Levophed still on dec- restarted. Dr. Rothman contacted, order for transfer rescinded. Continue to treat low bp with levophed drip. Patients nurse Eloy KIRKLAND made aware of above.
[2024-08-20] VITALS (68 sets, daily range): BP systolic 69–203; BP diastolic 41–95; PULSE 66–101; RESP 3–34; TEMP 36.6–37.3; O2SAT 90–99
[2024-08-20] MEDS: morphine 4 mg/mL SDV 1 mL 2 MG IVP (01:11)
[2024-08-20 05:03] LABS: Basophils % 0.7 %; Eosinophils # 0.2 10^3/uL (0.0-0.8); Hematocrit 34.2 % (36-47); Lymphocytes # 0.7 10^3/uL (0.8-4.8); Lymphocytes % 10.9 %; Mean Corpuscular Hemoglobin 30.5 pg (27-33); Mean Corpuscular Volume 92.2 fl (85-98); Mean Platelet Volume 9.1 fL (7.4-10.4); Monocytes # 0.5 10^3/uL (0.2-0.9); Monocytes % 7.7 %; Neutrophils # 4.58 10^3/uL (1.8-7.7); Neutrophils % 76.7 %; Nucleated Red Blood Cells % 0 %; Platelet Count 229 10^3/cmm (157-399); Red Blood Count 3.71 10^6/uL (3.85-5.65); Red Cell Distribution Width 13.7 % (12.1-15.1); White Blood Count 5.97 10^3/uL (3.29-11.43)
[2024-08-20 05:26] LABS: Alanine Aminotransferase 14 U/L (0-33); Albumin Level 3.6 g/dL (3.5-5.2); Alkaline Phosphatase 50 U/L (35-105); Anion Gap 15.3 (5-19); Aspartate Amino Transferase 19 U/L (0-32); Blood Urea Nitrogen 7 mg/dL (8-23); Calcium 8.5 mg/dL (8.5-10.5); Carbon Dioxide 26 mmol/L (22-29); Chloride 98 mmol/L (98-107); Creatinine Clr Calc Pharmacy 91.5748; Globulin 2.7 g/dL (1.3-4.6); Glomerular Filtration Rate 99.4 mL/min (90-130); Glucose 157 mg/dL (65-115); Magnesium 1.4 mg/dL (1.7-2.3); Osmolality Calculated 283 mOsm/kg (285-295); Phosphorus 3.2 mg/dL (2.5-4.5); Potassium 3.3 mmol/L (3.5-5.1); Sodium 136 mmol/L (136-145); Total Bilirubin 0.5 mg/dL (0.15-1.2); Total Protein 6.3 g/dL (6.6-8.7)
[2024-08-20] MEDS: levothyroxine 112 mcg Tablet PO (06:04)
[2024-08-20 06:58] LABS: Glucose Point of Care 152 mg/dL (70-110)
--- NOTE | 2024-08-20 08:21 | USR_ITS ---
PROCEDURE INFORMATION: Exam: US Duplex Right Upper Extremity Arteries Exam date and time: 08/20/2024 9:49 AM Age: 69 years old Clinical indication: Screening exam; Bps taken varied; Additional info: Subclavian stenosis, discordant blood pressure, right and L, right BP lower then left TECHNIQUE: Imaging protocol: Right Real-time ultrasound scan of the arteries of the right upper extremity with 2-D martinez scale, color Doppler flow and spectral waveform analysis. COMPARISON: CT angio neck [id number] 05/21/2022 10:33 AM FINDINGS: Right subclavian artery: No occlusion or significant stenosis. monophasic waveform. PSV 93 cm/s. Moderate disease Right axillary artery: No occlusion or significant stenosis. Triphasic waveform. PSV 29 cm/s Right brachial artery: No occlusion or significant stenosis. Monophasic waveform. PSV 35 cm/s this finding corresponds to severe diffuse non stenotic disease Right radial artery: Monophasic waveform. PSV 18 cm/s severe diffuse non stenotic disease. Right ulnar artery: . Monophasic waveform. PSV 19 cm/s severe diffuse [place]occlusive [place] US/[place] [id number] IMPRESSION: 1. There is severe diffuse nonocclusive disease in the brachial, radial, and ulnar arteries. 2. Moderate disease in the subclavian 3. Negative for significant stenosis in the right axillary
--- NOTE | 2024-08-20 09:00 | PC.NURSE ---
Notified Dr Benavides of inconsistencies in pt's BP and Levophed was stopped at 0800. First SBP 74 on right forearm, 5 minutes later on left upper arm SBP 161, at time Levophed stopped. Beltran Benavides ordered rechecked BP bilaterally. Left arm 108/58 Right arm SBP 60, diastolic too faint to steel pickler. Both completed with annual cuff. Dr Benavides notified of these results. Venous duplex for right arm ordered.
[2024-08-20] MEDS: ipratropium 0.5 mg/2.5 mL Neb INHALATION ×2 (09:28→20:28)
[2024-08-20] MEDS: albuterol 2.5 mg/3 mL Neb INHALATION ×2 (09:28→20:28)
[2024-08-20] MEDS: insulin lispro 100 unit/1 mL SUBCUT ×3 (09:32→20:44)
[2024-08-20] MEDS: acetaminophen 325 mg Tablet 650 MG PO (09:33)
[2024-08-20] MEDS: aspirin 81 mg EC Tablet PO (09:33)
[2024-08-20] MEDS: pantoprazole DR 40 mg Tablet PO (09:35)
[2024-08-20] MEDS: fluoxetine 20 mg Capsule PO (09:35)
[2024-08-20] MEDS: montelukast sodium 10 mg Tablet PO (09:35)
[2024-08-20] MEDS: clopidogrel 75 mg Tablet PO (09:35)
[2024-08-20] MEDS: gabapentin 100 mg Capsule PO (09:36)
[2024-08-20] MEDS: atorvastatin 40 mg Tablet PO (09:36)
[2024-08-20] MEDS: cilostazol 100 mg Tablet PO ×2 (09:36→17:07)
[2024-08-20 12:18] LABS: Glucose Point of Care 132 mg/dL (70-110)
[2024-08-20] MEDS: magnesium sulfate premix 1 GM/100 ML PIGGYBACK IV (12:28)
[2024-08-20] MEDS: potassium chloride ER 20 mEq Tablet PO (12:28)
--- NOTE | 2024-08-20 13:47 | PC.NURSE ---
Orthostatic Bp completed. Dr Benavides and Dr Spicer both notified of results. 250ml bolus NS order received and started.
[2024-08-20] MEDS: sodium chloride 0.9% 250 ML IV (14:29)
--- NOTE | 2024-08-20 15:07 | P.PN_ITS ---
Documented by User: Aruna Carranza NP 08/20/24 15:11 Subjective 2 Subjective: Patient doing well status post left heart catheterization other than labile blood pressure. Patient was noted to have significant mid RCA lesion treated with 1 drug-eluting stent. Patient was also noted to have significant in-stent restenosis of mid LAD stent treated with noncompliant balloon, 90% lesion was reduced to 30% with good angiographic result. Patient was started on Aggrastatthen transitioned to Plavix. She has no episodes of chest pain or shortness of breath at this time. Patient was placed back on levophed drip but it has been discontinued at this time. She has been given a fluid bolus to help with this. EF was previously normal. No s/s of heart failure. BP no 109/56. BP medications still being held at this time. Medications: Reviewed: Yes Vitals/I&O/Wt Last Vital Signs Temp 99.2 F 08/20/24 04:00 Pulse 81 08/20/24 13:45 Resp 26 H 08/20/24 13:45 BP 109/56 08/20/24 13:45 Pulse Ox 94 08/20/24 13:45 O2 Del Method CAG 08/20/24 13:45 O2 Flow Rate 8 08/20/24 09:29 FiO2 30 08/20/24 09:29 08/20/24 08/20/24 08/20/24 06:59 14:59 22:59 Intake Total 31.438 / 1250.063 679.625 / 679.625 Output Total 1550 / 2650 300 / 300 Balance -1518.562 / -1399.937 379.625 / 379.625 Weight last 48 hrs Weight 191 lb 14.472 oz Weight 190 lb 0.175 oz Weight 190 lb 1.745 oz Physical Exam 2 Narrative: General: No apparent distress, healthy appearing, well nourished Muskuloskeletal: Full ROM Lymphatic: no lymphedema noted Respiratory: Normal respiratory effort, clear to auscultation bilaterally throughout all lung patton, no use of accessory muscles Cardio: No JVD, regular rate, regular rhythm, S1 S2 normal, no murmurs, peripheral pulses 2+ radial palpated bilaterally, groin cath site clean dry intact w/o s/s of hematoma present Extremities: Full ROM, normal, normal capillary refill, no cyanosis or edema Neuro: Alert and oriented x4, no focal motor deficits Psych: Affect normal, denies suicidal ideation, mental status grossly normal Skin: No rashes or lesions noted, no wounds Data 08/20/24 04:42 08/20/24 04:42 A&P Assessment and plan (1) CAD (coronary artery disease): Status post PCI to mid RCA for severe stenosis treated with single drug-eluting stent postdilated with noncompliant balloon. Status post balloon angioplasty to mid LAD stent for high-grade in-stent restenosis. Excellent angiographic result was achieved. Coronary spasm was noted in the proximal part of the RCA which was resolved after nitro and pulling of the wire. Recommend dual antiplatelet therapy for 1 year including aspirin and Plavix. Qualifiers: Associated angina: with unstable angina Coronary Disease-Associated Artery/Lesion type: [place] artery [place] vs. transplanted heart: [place] heart Qualified Code(s): I25.110 - Atherosclerotic heart disease of [place] coronary artery with unstable angina pectoris (2) HTN (hypertension): Patient's blood pressure is quite labile. Recommend fluid bolus. Patient asymptomatic at this time. Qualifiers: Hypertension type: primary hypertension Qualified Code(s): I10 - Essential (primary) hypertension (3) Hypercholesterolemia: Continue statin. (4) Hypertensive urgency: As stated above Plan Patient is doing well status post PCI to the mid RCA. Once blood pressure is stablized, patient may f/U in 1 week. We will see how she responds to the fluid bolus. will continue to hold blood pressure medications at this time. Continue DAPT x1 year. Attestations 2 Medical Necessity Statement*: Patient require continuation hospitalization for above defined care. Coding Level of Care Code Acute Code for [facility] Fwd Diagnoses Coronary artery disease involving [place] coronary artery of [place] heart with unstable angina pectoris I25.110 Associated angina: with unstable angina Coronary Disease-Associated Artery/Lesion type: [place] artery [place] vs. transplanted heart: [place] heart Primary hypertension I10 Hypertension type: primary hypertension Hypercholesterolemia E78.00 Hypertensive urgency I16.0 Documented by User: Raúl Spicer MD 08/21/24 00:19 Subjective 2 Subjective: Patient was evaluated and cared for in conjunction with an advanced practice practitioner. I personally examined the patient and reviewed the chart and all pertinent data including imaging, telemetry, and laboratory results. I discussed the patient in detail with the advanced practice practitioner. Please see their note for complete H&P testing result and agreed upon plan of care for the patient. Patient doing well status post left heart catheterization other than labile blood pressure. Patient was noted to have significant mid RCA lesion treated with 1 drug-eluting stent. Patient was also noted to have significant in-stent restenosis of mid LAD stent treated with noncompliant balloon, 90% lesion was reduced to 30% with good angiographic result. Patient was started on Aggrastatthen transitioned to Plavix. She has no episodes of chest pain or shortness of breath at this time. Patient was placed back on levophed drip but it has been discontinued at this time. She has been given a fluid bolus to help with this. EF was previously normal. No s/s of heart failure. BP no 109/56. BP medications still being held at this time. Data 08/20/24 04:42 08/20/24 04:42 A&P Assessment and plan (1) CAD (coronary artery disease): Qualifiers: Associated angina: with unstable angina Coronary Disease-Associated Artery/Lesion type: [place] artery [place] vs. transplanted heart: [place] heart Qualified Code(s): I25.110 - Atherosclerotic heart disease of [place] coronary artery with unstable angina pectoris (2) HTN (hypertension): Qualifiers: Hypertension type: primary hypertension Qualified Code(s): I10 - Essential (primary) hypertension (3) Hypercholesterolemia: (4) Hypertensive urgency: Coding Level of Care Code Acute Code for [facility] Fwd Diagnoses Coronary artery disease involving [place] coronary artery of [place] heart with unstable angina pectoris I25.110 Associated angina: with unstable angina Coronary Disease-Associated Artery/Lesion type: [place] artery [place] vs. transplanted heart: [place] heart Primary hypertension I10 Hypertension type: primary hypertension Hypercholesterolemia E78.00 Hypertensive urgency I16.0
--- NOTE | 2024-08-20 15:56 | PC.NURSE ---
Report called to [facility] and given to MARITA Wise.
--- NOTE | 2024-08-20 16:00 | P.PN_ITS ---
Subjective 2 Subjective: Patient was seen this morning, she is sitting up in a chair, she is frustrated about being here in the hospital, her blood pressures do drop overnight, she also seems to have discordant blood pressures between the right and the left, right blood pressure seem to be lower than the left, she denies any lightheadedness, dizziness, Vitals/I&O/Wt Last Vital Signs Temp 98.2 F 08/20/24 14:00 Pulse 82 08/20/24 15:15 Resp 20 H 08/20/24 15:15 BP 99/78 08/20/24 15:15 Pulse Ox 95 08/20/24 15:15 O2 Del Method CAG 08/20/24 15:15 O2 Flow Rate 8 08/20/24 09:29 FiO2 20 08/20/24 15:15 08/20/24 08/20/24 08/20/24 06:59 14:59 22:59 Intake Total 31.438 / 7274.088 8729.625 / 1179.625 Output Total 1550 / 2650 300 / 300 Balance -1518.562 / -1399.937 879.625 / 879.625 Weight last 48 hrs Weight 87.046 kg Weight 86.188 kg Weight 86.232 kg Physical Exam 2 Const: COMMON NORMALS: no acute distress and patient oriented x3 Resp: COMMON NORMALS: normal respiratory effort, No retractions, No use of accessory muscles and clear to auscultation bilaterally AUSCULTATION: clear to auscultation bilaterally Cardio: COMMON NORMALS: regular rate, regular rhythm, S1 normal heart sound present and S2 normal heart sound present RATE: regular rate RHYTHM: r egular rhythm HEART SOUNDS: S1 normal heart sound present and S2 normal heart sound present GI: COMMON NORMALS: Normal to inspection, nondistended, normoactive bowel sounds present and non-tender Extremity: COMMON NORMALS: no pedal edema Neuro: COMMON NORMALS: patient oriented x3 Psych: COMMON NORMALS: mental status grossly normal Data 08/20/24 04:42 08/20/24 04:42 A&P Assessment and plan (1) Chest pain: -Episode of chest pain and during the night -Continue aspirin, statin, Coreg -Serial EKGs, serial troponins, telemetry monitoring -Cardiac echo CONCLUSIONS Normal left ventricle systolic function. Normal LVEF 65%. Normal right ventricular size and systolic function. Mild mitral regurgitation. No other significant valvular abnormality noted. Normal right heart and pulmonary artery systolic pressure. Cardiac stress test IMPRESSIONS Medium sized area of old myocardial infarction in the mid inferior wall surrounded by moderate to large area of medium to large area of moderate swetha- infarct ischemia. This is abnormal stress test. EKG segment will be documented separately. # Status post cardiac cath, drug-eluting stent to mid RCA, with in-stent restenosis of mid LAD treated with noncompliant balloon, 90% lesion was reduced to 30% ? Continue aspirin, statin, Plavix ? Will consider Coreg based on blood pressure Qualifiers: Chest pain type: other chest pain Qualified Code(s): R07.89 - Other chest pain (2) CAD (coronary artery disease): Last stent 7 years ago and patient with extensive vascular disease and a positive family history Will order high-sensitivity C-reactive protein and lipoprotein a Qualifiers: Coronary Disease-Associated Artery/Lesion type: [place] artery [place] vs. transplanted heart: [place] heart Associated angina: with unstable angina Qualified Code(s): I25.110 - Atherosclerotic heart disease of [place] coronary artery with unstable angina pectoris (3) PAD (peripheral artery disease): Stable (4) HTN (hypertension): Qualifiers: Hypertension type: primary hypertension Qualified Code(s): I10 - Essential (primary) hypertension (5) CHF exacerbation: - Systolic diastolic CHF exacerbation - nonpitting edema -Chest x-ray shows mild interstitial pulm edema versus infiltrates -Monitor (6) Diabetes mellitus: Low-dose sliding scale (7) Hypertensive urgency: (8) Tracheostomy in place: - Tracheostomy in place -Does complain of mucus production from tracheostomy but not on more than usual ? Chest x-ray showing mild interstitial pulm edema versus infiltrates ? CRP 24 (9) Throat cancer: (10) Elevated TSH: Low T3, low T4 -Will adjust levothyroxine dose based on clinical progress given CAD as above Plan Low blood pressure -Lactic acid within normal limits -hemoglobin within normal limits -Repeat troponins within normal limits -Afebrile overnight, -Does have discordant blood pressure between right and left ultrasound right upper extremity -Off Levophed -Potentially combination of blood pressure medications ? Possibly the effect of anesthetic agent ? Discordant blood pressures right and left ? Monitor blood pressures IV fluids ? Plan for today monitor blood pressures, blood pressures seem to fluctuate, spoke to cardiology Attestations 2 Medical Necessity Statement*: Patient requires hospitalization for persistent low blood pressures after cardiac cath, requiring inpatient monitoring, requiring inpatient monitoring Diagnoses Other chest pain R07.89 Chest pain type: other chest pain Coronary artery disease involving [place] coronary artery of [place] heart with unstable angina pectoris I25.110 Coronary Disease-Associated Artery/Lesion type: [place] artery [place] vs. transplanted heart: [place] heart Associated angina: with unstable angina PAD (peripheral artery disease) I73.9 Primary hypertension I10 Hypertension type: primary hypertension CHF exacerbation I50.9 Diabetes mellitus E11.9 Hypertensive urgency I16.[address] Z93.0 Throat cancer C14.0 Elevated TSH R79.89
--- NOTE | 2024-08-20 16:30 | PC.NURSE ---
Pt transferred to [facility] via W/C. All belongings including her trach supplies, cell phone with pt.
--- NOTE | 2024-08-20 16:35 | PC.NURSE ---
Stent card given to pt.
[2024-08-20] MEDS: enoxaparin 40 mg/0.4 mL Syringe SUBCUT (17:08)
[2024-08-20 17:38] LABS: Glucose Point of Care 235 mg/dL (70-110)
[2024-08-20 20:22] LABS: Glucose Point of Care 206 mg/dL (70-110)
[2024-08-21] VITALS (8 sets, daily range): BP systolic 145–161; BP diastolic 51–87; PULSE 83–89; RESP 16–18; TEMP 36.6–37.1; O2SAT 91–96
[2024-08-21 05:54] LABS: Basophils % 0.5 %; Eosinophils # 0.2 10^3/uL (0.0-0.8); Eosinophils % 2.9 %; Hematocrit 30.5 % (36-47); Lymphocytes # 0.6 10^3/uL (0.8-4.8); Lymphocytes % 10.8 %; Mean Corpuscular HGB Conc 34.1 g/dL (30-55); Mean Corpuscular Hemoglobin 31.5 pg (27-33); Mean Corpuscular Volume 92.4 fl (85-98); Mean Platelet Volume 9.4 fL (7.4-10.4); Monocytes # 0.4 10^3/uL (0.2-0.9); Monocytes % 7.4 %; Neutrophils # 4.53 10^3/uL (1.8-7.7); Neutrophils % 77.9 %; Nucleated Red Blood Cells % 0 %; Platelet Count 189 10^3/cmm (157-399); White Blood Count 5.82 10^3/uL (3.29-11.43)
[2024-08-21] MEDS: levothyroxine 125 mcg Tablet PO (06:18)
[2024-08-21 06:21] LABS: Alanine Aminotransferase 10 U/L (0-33); Albumin Level 3.4 g/dL (3.5-5.2); Alkaline Phosphatase 43 U/L (35-105); Anion Gap 12.6 (5-19); Aspartate Amino Transferase 11 U/L (0-32); Blood Urea Nitrogen 10 mg/dL (8-23); Calcium 8.5 mg/dL (8.5-10.5); Carbon Dioxide 27 mmol/L (22-29); Chloride 98 mmol/L (98-107); Creatinine Clr Calc Pharmacy 92.2441; Globulin 2.3 g/dL (1.3-4.6); Glomerular Filtration Rate 99.4 mL/min (90-130); Glucose 149 mg/dL (65-115); Magnesium 1.5 mg/dL (1.7-2.3); Osmolality Calculated 280 mOsm/kg (285-295); Potassium 3.6 mmol/L (3.5-5.1); Sodium 134 mmol/L (136-145); Total Bilirubin 0.3 mg/dL (0.15-1.2); Total Protein 5.7 g/dL (6.6-8.7)
[2024-08-21 06:25] LABS: Glucose Point of Care 155 mg/dL (70-110)
[2024-08-21 06:34] LABS: Cortisol Random 10.92 ug/dL (2.47-19.5); Free T4 Free Thyroxine 0.71 ng/dL (0.82-1.77); T3 Free 1.4 PG/ML (2.0-4.4); Thyroid Stimulating Hormone 18.32 uIU/mL (0.27-4.20)
[2024-08-21] MEDS: cilostazol 100 mg Tablet PO (08:33)
[2024-08-21] MEDS: atorvastatin 40 mg Tablet PO (08:33)
[2024-08-21] MEDS: lisinopril 5 mg Tablet PO (08:33)
[2024-08-21] MEDS: montelukast sodium 10 mg Tablet PO (08:33)
[2024-08-21] MEDS: gabapentin 100 mg Capsule PO (08:33)
[2024-08-21] MEDS: insulin lispro 100 unit/1 mL SUBCUT ×2 (08:33→13:22)
[2024-08-21] MEDS: fluoxetine 20 mg Capsule PO (08:33)
[2024-08-21] MEDS: clopidogrel 75 mg Tablet PO (08:33)
[2024-08-21] MEDS: aspirin 81 mg EC Tablet PO (08:33)
[2024-08-21] MEDS: pantoprazole DR 40 mg Tablet PO (08:33)
--- NOTE | 2024-08-21 11:19 | PM.DCS ---
Discharge Providers Date of Admission: 08/14/24 22:23 Date of Discharge: August 21, 2024 Attending Provider at Admission: Shane Barrow MD Attending Provider at Discharge: Gurpreet Benavides MD Primary Care Provider: Breanne Clayton Diagnoses at Discharge Discharge Diagnosis (1) CAD (coronary artery disease): Status: Acute Qualifiers: Associated angina: with unstable angina Coronary Disease-Associated Artery/Lesion type: [place]emat[place]l artery [place] vs. transplanted heart: habematolel heart Qualified Code(s): I25.110 - Atherosclerotic heart disease of hab[place] coronary artery with unstable angina pectoris (2) HTN (hypertension): Status: Acute Qualifiers: Hypertension type: primary hypertension Qualified Code(s): I10 - Essential (primary) hypertension (3) Hypercholesterolemia: Status: Acute (4) Hypertensive urgency: Status: Acute Reason for Visit Reason for Visit: Unstable Angina Hospital Course Hospital Course This is a 61-year-old female with a past medical history of throat cancer, with tracheostomy in place, hypertension, hyperlipidemia, diabetes, CAD who presents [facility] for chest pain shortness of breath For chest pain: -With recurrent episodes of chest pain during hospitalization -Continue aspirin, statin, heparin drip -Serial EKGs, serial troponins, telemetry monitoring -Cardiac echo CONCLUSIONS Normal left ventricle systolic function. Normal LVEF 65%. Normal right ventricular size and systolic function. Mild mitral regurgitation. No other significant valvular abnormality noted. Normal right heart and pulmonary artery systolic pressure. Cardiac stress test IMPRESSIONS Medium sized area of old myocardial infarction in the mid inferior wall surrounded by moderate to large area of medium to large area of moderate sw[place]- infarct ischemia. This is abnormal stress test. EKG segment will be documented separately. # Status post cardiac cath, drug-eluting stent to mid RCA, with in-stent restenosis of mid LAD treated with noncompliant balloon, 90% lesion was reduced to 30% ? Continue aspirin, statin, Plavix ? Will consider Coreg based on blood pressure -Follow-up with cardiology as outpatient Patient's hospitalization was complicated by low blood pressures, Lactic acid within normal limits -hemoglobin within normal limits -Repeat troponins within normal limits -Afebrile overnight, -Does have discordant blood pressure between right and left ultrasound right upper extremity -Did require intermittent Levophed during hospitalization -Potentially combination of blood pressure medications, discordant blood pressures between right and left, dehydration, anesthetic effect US right upper extremity US/[place] [id number] IMPRESSION: 1. There is severe diffuse nonocclusive disease in the brachial, radial, and ulnar arteries. 2. Moderate disease in the subclavian 3. Negative for significant stenosis in the right axillary ? Possibly the effect of anesthetic agent ? Discordant blood pressures right and left ? Blood pressures have improved on discharge, will slowly resume p.o. blood pressure medications as outpatient - Please take aspirin, Plavix, statin, as prescribed -Lisinopril 5 mg daily today -Tomorrow start Coreg 6.25 twice daily -If you have any recurrent chest pain go to the emergency room -Monitor your blood sugars closely follow-up with primary care provider as outpatient -Do not take glipizide or glimepiride -Do not take meloxicam Elevated TSH, with low T3, low T4 levothyroxine 175 mcg p.o. daily, recheck TSH in 4 week Physical Exam Const: COMMON NORMALS: no acute distress and patient oriented x3 HENMT: OTHER: Tracheostomy in place Resp: COMMON NORMALS: normal respiratory effort, No retractions, No use of accessory muscles and clear to auscultation bilaterally AUSCULTATION: clear to auscultation bilaterally Cardio: COMMON NORMALS: regular rate, regular rhythm, S1 normal heart sound present and S2 normal heart sound present RATE: regular rate RHYTHM: regular rhythm HEART SOUNDS: S1 normal heart sound present and S2 normal heart sound present GI: COMMON NORMALS: Normal to inspection, nondistended, normoactive bowel sounds present and non-tender Extremity: COMMON NORMALS: no pedal edema Neuro: COMMON NORMALS: patient oriented x3 Psych: COMMON NORMALS: mental status grossly normal Discharge Data Studies Completed and Pending Completed Studies During Hospitalization Category Date Time Status Sestamibi Stress Test Request Routine Exams 08/16/24 10:35 Draft XR chest 1V portable [id number] Routine Exams 08/15/24 13:47 Completed NM tatiana perf SPECT r/s* [id number] Routine Nuc Med 08/17/24 10:35 Completed CV. echo complete* [id number] Routine Ultrasound 08/15/24 08:27 Completed US arterial duplex upper extremity RT [CV arterial Ultrasound 08/20/24 08:21 [place] [id number]] Routine Pending at discharge Category Date Time Status [employer]GER request for service Routine Exams 08/18/24 07:04 Taken Complete Blood Count w/Auto AM LABS Lab 08/22/24 04:00 Ordered Comprehensive Metabolic Panel AM LABS Lab 08/22/24 04:00 Ordered Magnesium AM LABS Lab 08/22/24 04:00 Ordered Phosphorus AM LABS Lab 08/22/24 04:00 Ordered Radiology Impressions Chest X-Ray 08/15/24 13:47 IMPRESSION: 1. Mild enlarged cardiac silhouette. 2. Mild interstitial pulmonary edema versus infiltrates. 3. Degenerative and postsurgical changes are demonstrated, as described above. Duplex Scan Upper Extremity Artery 08/20/24 08:21 IMPRESSION: 1. There is severe diffuse nonocclusive disease in the brachial, radial, and ulnar arteries. 2. Moderate disease in the subclavian 3. Negative for significant stenosis in the right axillary Laboratory Results WBC 5.82 10^3/uL (3.29-11.43) 08/21/24 05:27 RBC 3.30 10^6/uL (3.85-5.65) L 08/21/24 05:27 Hgb 10.40 g/dL (11.27-16.99) L 08/21/24 05:27 Hct 30.5 % (36-47) L 08/21/24 05:27 MCV 92.4 fl (85-98) 08/21/24 05:27 MCH 31.5 pg (27-33) 08/21/24 05:27 MCHC 34.1 g/dL (30-55) 08/21/24 05:27 RDW 14.0 % (12.1-15.1) 08/21/24 05:27 Plt Count 189 10^3/cmm (157-399) 08/21/24 05:27 MPV 9.4 fL (7.4-10.4) 08/21/24 05:27 Neut % (Auto) 77.9 % 08/21/24 05:27 Lymph % (Auto) 10.8 % 08/21/24 05:27 Evans % (Auto) 7.4 % 08/21/24 05:27 Eos % (Auto) 2.9 % 08/21/24 05:27 Baso % (Auto) 0.5 % 08/21/24 05:27 Neut # (Auto) 4.53 10^3/uL (1.8-7.7) 08/21/24 05:27 Lymph # (Auto) 0.6 10^3/uL (0.8-4.8) L 08/21/24 05:27 Evans # (Auto) 0.4 10^3/uL (0.2-0.9) 08/21/24 05:27 Eos # (Auto) 0.2 10^3/uL (0.0-0.8) 08/21/24 05:27 Baso # (Auto) 0.0 10^3/uL (0.0-0.1) 08/21/24 05:27 Nucleated RBC % (auto) 0 % 08/21/24 05:27 Nucleated RBCs # 0.0 /100WBC 08/21/24 05:27 APTT 50.7 SECONDS (23.9-36.7) H 08/18/24 15:24 Sodium 134 mmol/L (136-145) L 08/21/24 05:27 Potassium 3.6 mmol/L (3.5-5.1) 08/21/24 05:27 Chloride 98 mmol/L (98-107) 08/21/24 05:27 Carbon Dioxide 27 mmol/L (22-29) 08/21/24 05:27 Anion Gap 12.6 (5-19) 08/21/24 05:27 BUN 10 mg/dL (8-23) 08/21/24 05:27 Creatinine 0.6 mg/dL (0.5-0.9) 08/21/24 05:27 GFR Calculation 99.4 mL/min (90-130) 08/21/24 05:27 Glucose 149 mg/dL (65-115) H 08/21/24 05:27 POC Glucose 155 mg/dL (70-110) H 08/21/24 06:13 Estimat Average Glucose 177 08/15/24 01:12 Hemoglobin A1c 7.8 % (4.0-6.0) H 08/15/24 01:12 Calculated Osmolality 280 mOsm/kg (285-295) L 08/21/24 05:27 Lactate 0.8 mmol/L (0.5-2.2) 08/17/24 16:46 Calcium 8.5 mg/dL (8.5-10.5) 08/21/24 05:27 Phosphorus 3.0 mg/dL (2.5-4.5) 08/21/24 05:27 Magnesium 1.5 mg/dL (1.7-2.3) L 08/21/24 05:27 Total Bilirubin 0.3 mg/dL (0.15-1.2) 08/21/24 05:27 AST 11 U/L (0-32) 08/21/24 05:27 ALT 10 U/L (0-33) 08/21/24 05:27 Alkaline Phosphatase 43 U/L (35-105) 08/21/24 05:27 Troponin T 5th Gen ng/L 7 ng/L (0-10) 08/17/24 14:13 Troponin T Baseline 8 ng/L (0-10) 08/14/24 23:09 Troponin T 120 Minute 6.00 ng/L (0-10) 08/17/24 16:46 Delta Troponin T -1 ABS# (0-10) L 08/17/24 16:46 Troponin T Hi Sens 6Hr 13.13 ng/L (0-10) H 08/17/24 20:57 Troponin T Hi Sens 6Hr Delta 6.13 ng/L (0-12) 08/17/24 20:57 C-Reactive Protein 24.1 mg/L (0.0-4.9) H 08/16/24 00:31 C-React Prot High Sens 1.720 mg/dL (0.0-0.3) H 08/15/24 01:12 NT-Pro-B Natriuret Pep 329 pg/mL (0-125) H 08/18/24 03:15 Total Protein 5.7 g/dL (6.6-8.7) L 08/21/24 05:27 Albumin 3.4 g/dL (3.5-5.2) L 08/21/24 05:27 Globulin 2.3 g/dL (1.3-4.6) 08/21/24 05:27 Triglycerides 157 mg/dL (0-150) H 08/15/24 05:10 Cholesterol 141 mg/dL (0-200) 08/15/24 05:10 LDL Cholesterol, Calc 84 mg/dL (50-129) 08/15/24 05:10 HDL Cholesterol 26 mg/dL (60-100) L 08/15/24 05:10 LDL/HDL Ratio 3.23 RATIO (0.00-3.22) H 08/15/24 05:10 Cholesterol/HDL Ratio 5.42 mg/dL (0.0-4.40) H 08/15/24 05:10 Lipoprotein (a) 101 nmol/L (<75) H 08/15/24 01:12 Procalcitonin 0.06 ng/mL (0-0.5) 08/16/24 00:31 TSH 18.32 uIU/mL (0.27-4.20) H 08/21/24 05:27 Free T4 0.71 ng/dL (0.82-1.77) L 08/21/24 05:27 Free T3 1.4 PG/ML (2.0-4.4) L 08/21/24 05:27 Random Cortisol 10.92 ug/dL (2.47-19.5) 08/21/24 05:27 Vitals Last Vital Signs Temp 98.8 F 08/21/24 07:49 Pulse 88 08/21/24 07:49 Resp 17 08/21/24 04:00 BP 157/70 08/21/24 07:49 Pulse Ox 91 08/21/24 04:00 O2 Del Method Trach Collar 08/21/24 04:00 O2 Flow Rate 5 08/21/24 04:00 FiO2 28 08/20/24 20:29 Discharge Plan Discharge Patient Disposition: Home Condition: Stable Prescriptions: New clopidogrel 75 mg Tablet 75 mg PO DAILY 30 Days Qty: 30 0RF levothyroxine 175 mcg capsule 175 mcg PO DAILY 30 Days Qty: 30 0RF Continued albuterol sulfate 90 mcg/actuation HFA aerosol inhaler 2 puff inhalation Q6H PRN (Reason: Dyspnea) fluoxetine 20 mg/5 mL (4 mg/mL) solution 20 mg PO DAILY montelukast 10 mg tablet 10 mg PO BEDTIME Dexilant 60 mg capsule,biphase delayed releas 60 mg PO DAILY cilostazol 100 mg tablet 100 mg PO BID Qty: 180 1RF nitroglycerin 0.4 mg tablet, sublingual 0.4 mg sublingual Q5M PRN (Reason: chest pain) Qty: 25 6RF Rx Instructions: do not exceed 3 doses per episode Bydureon BCise 2 mg/0.85 mL auto-injector 2 mg SUBCUT Q7D ipratropium-albuterol 0.5 mg-3 mg(2.5 mg base)/3 mL solution for nebulization 3 ml INHALATION Q6H calcium carbonate 500 mg calcium (1,250 mg) Tablet,Chewable 500 mg PO DAILY cholecalciferol (vitamin D3) 1,250 mcg (50,000 unit) capsule 50,000 unit PO Q7D dapagliflozin propanediol 10 mg Tablet 10 mg PO DAILY atorvastatin 40 mg tablet 40 mg PO DAILY 30 Days Qty: 30 0RF aspirin 81 mg Tablet,Delayed Release (Dr/Ec) 81 mg PO DAILY 30 Days Qty: 30 0RF lisinopril 5 mg tablet 5 mg PO DAILY 30 Days Qty: 30 0RF Held carvedilol 6.25 mg tablet 6.25 mg PO BID Hold Instructions: Resume on 08/22/24. Rx Instructions: must administer with a meal/food isosorbide mononitrate 30 mg tablet extended release 24 hr 30 mg PO DAILY Qty: 90 3RF Hold Instructions: Resume on 08/23/24. Discontinued diclofenac sodium [Arthritis Pain (diclofenac)] 1 % gel 2 g topical QID Rx Instructions: apply to single elbow, wrist or hand; for hand includes palm/fingers/back of hand levothyroxine 112 mcg capsule 175 mcg PO DAILY glimepiride 2 mg tablet 2 mg PO DAILY meloxicam 15 mg tablet 15 mg PO DAILY paroxetine HCl 20 mg tablet 20 mg PO DAILY glipizide 5 mg tablet extended release 24hr 5 mg PO DAILY sulfamethoxazole-trimethoprim 800-160 mg tablet 1 tab PO BID losartan 25 mg tablet 25 mg PO DAILY Rx Instructions: Take 1 tablet by mouth once daily Discharge Orders: Discharge Order (Routine); Ordered 08/21/24 Ordered By: Gurpreet Benavides Referrals: Ria Tinajero FNP [Nurse Practitioner] - 09/02/24 3:00 pm (NSTEMI S/P PCI to the RCA, mid LAD balloon ) Discharge Diet: Cardiac Discharge Activity: Resume usual activity Patient Instructions: Levothyroxine (By mouth), Clopidogrel (By mouth), Hypertension, Heart Failure (DC), Chest Pain (DC), Opioid Safety Activity Restrictions/Additional Instructions: - Please take aspirin, Plavix, statin, as prescribed -Lisinopril 5 mg daily today -Tomorrow start Coreg 6.25 twice daily -If you have any recurrent chest pain go to the emergency room -Monitor your blood sugars closely follow-up with primary care provider as outpatient -Do not take glipizide or glimepiride -Do not take meloxicam -Repeat check TSH in 1 week Discharge Attestations Time Spent in Discharge Care*: greater than 30 min Quality Metrics Clinical Quality Measures [ No reported AMI, CVA or VTE this stay] Coding Level of Care Code 26449 Total time (in minutes) for Discharge: 45 Diagnoses Coronary artery disease involving habematolel coronary artery of habematolel heart with unstable angina pectoris I25.110 Associated angina: with unstable angina Coronary Disease-Associated Artery/Lesion type: habematolel artery [place] vs. transplanted heart: habematolel heart Primary hypertension I10 Hypertension type: primary hypertension Hypercholesterolemia E78.00 Hypertensive urgency I16.0
[2024-08-21 11:46] LABS: Glucose Point of Care 232 mg/dL (70-110)
--- NOTE | 2024-08-21 11:53 | PC.RESP ---
the only desats noted was when a skin flap on neck obstructed stoma. sats 89% roomair
--- NOTE | 2024-08-21 14:46 | PC.NURSE ---
Discharge Note Patient discharged to home via POV accompanied by family. 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 Mobile pharmacy medications and/or prescriptions provided. Belongings/home medications returned.
--- NOTE | 2024-08-21 14:58 | P.PN_ITS ---
Subjective 2 Subjective: Patient doing well status post left heart catheterization. Patient was noted to have significant mid RCA lesion treated with 1 drug-eluting stent. Patient was also noted to have significant in-stent restenosis of mid LAD stent treated with noncompliant balloon, 90% lesion was reduced to 30% with good angiographic result. Patient was started on Aggrastat then transitioned to Plavix. She has no episodes of chest pain or shortness of breath at this time. No signs or symptoms of heart failure. Blood pressure has stabilized at this time. Medications: Reviewed: Yes Vitals/I&O/Wt Last Vital Signs Temp 98.7 F 08/21/24 14:38 Pulse 83 08/21/24 14:38 Resp 16 08/21/24 14:38 BP 161/87 08/21/24 14:38 Pulse Ox 96 08/21/24 14:38 O2 Del Method Room Air 08/21/24 08:00 O2 Flow Rate 5 08/21/24 04:00 FiO2 28 08/20/24 20:29 08/20/24 08/21/24 08/21/24 22:59 06:59 14:59 Intake Total 710 / 1889.625 480 / 480 Balance 710 / 1589.625 480 / 480 Weight last 48 hrs Weight 191 lb 6.4 oz Weight 191 lb 6.4 oz Weight 191 lb 14.472 oz Physical Exam 2 Narrative: General: No apparent distress, healthy appearing, well nourished HENMT: normoceophalic Neck: No carotid bruit bilaterally Muskuloskeletal: Full ROM Lymphatic: no lymphedema noted Respiratory: Normal respiratory effort, clear to auscultation bilaterally throughout all lung patton, no use of accessory muscles Cardio: No JVD, regular rate, regular rhythm, S1 S2 normal, no murmurs, peripheral pulses 2+ throughout GI: Normal to inspection, nondistended Extremities: Full ROM, normal, normal capillary refill, no cyanosis or edema Neuro: Alert and oriented x4, no focal motor deficits Psych: Affect normal, denies suicidal ideation, mental status grossly normal Skin: No rashes or lesions noted, no wounds Data 08/21/24 05:27 08/21/24 05:27 A&P Assessment and plan (1) CAD (coronary artery disease): Status post PCI to mid RCA for severe stenosis treated with single drug-eluting stent postdilated with noncompliant balloon. Status post balloon angioplasty to mid LAD stent for high-grade in-stent restenosis. Excellent angiographic result was achieved. Coronary spasm was noted in the proximal part of the RCA which was resolved after nitro and pulling of the wire. Recommend dual antiplatelet therapy for 1 year including aspirin and Plavix. Follow-up in the clinic in 1 week. Qualifiers: Associated angina: with unstable angina Coronary Disease-Associated Artery/Lesion type: [place] artery [place] vs. transplanted heart: [place] heart Qualified Code(s): I25.110 - Atherosclerotic heart disease of [place] coronary artery with unstable angina pectoris (2) HTN (hypertension): Patient's blood pressure stabilized. Recommend carefully add back patient's blood pressure medications as tolerated. Qualifiers: Hypertension type: primary hypertension Qualified Code(s): I10 - Essential (primary) hypertension (3) Hypercholesterolemia: Continue statin. (4) Hypertensive urgency: As stated above Plan Discussed plan with Dr. Spicer and Dr. Benavides. Patient is doing well status post PCI to the mid RCA. Blood pressure is stablized, patient may f/U in clinic in 1 week. Recommend slowly add back bp medications as tolerated. Attestations 2 Medical Necessity Statement*: Patient requires hospitalization for persistent low blood pressures after cardiac cath, requiring inpatient monitoring, requiring inpatient monitoring Coding Level of Care Code Acute Code for Chg Fwd Diagnoses Coronary artery disease involving [place] coronary artery of [place] heart with unstable angina pectoris I25.110 Associated angina: with unstable angina Coronary Disease-Associated Artery/Lesion type: [place] artery [place] vs. transplanted heart: [place] heart Primary hypertension I10 Hypertension type: primary hypertension Hypercholesterolemia E78.00 Hypertensive urgency I16.0
== END 2024-08-21 14:47 | disposition home or self-care (01) | DRG 321 ==
LOC: CSU 08-16 07:24 → ICU 08-17 17:07 → CSU 08-20 16:45
PROVIDERS: Internal Medicine; Internal Medicine Cardiovascular Disease; Admitting Provider Internal Medicine; PCP Registered Nurse; Visit Provider Family Medicine
PROC: B2111ZZ Fluoroscopy of Multiple Coronary Arteries using Low Osmolar Contrast (ICD-10-PCS; principal; 2024-08-18 11:00)
PROC: B2111ZZ Fluoroscopy of Multiple Coronary Arteries using Low Osmolar Contrast (ICD-10-PCS; 2024-08-18 11:00)
DX: T82.855A Stenosis of coronary artery stent, initial encounter (principal); I50.43 Acute on chronic combined systolic (congestive) and diastolic (congestive) heart failure; I25.110 Atherosclerotic heart disease of native coronary artery with unstable angina pectoris; Y71.1 Therapeutic (nonsurgical) and rehabilitative cardiovascular devices associated with adverse incidents; I25.111 Atherosclerotic heart disease of native coronary artery with angina pectoris with documented spasm; I16.0 Hypertensive urgency; E78.00 Pure hypercholesterolemia, unspecified; E11.51 Type 2 diabetes mellitus with diabetic peripheral angiopathy without gangrene; J44.9 Chronic obstructive pulmonary disease, unspecified; I11.0 Hypertensive heart disease with heart failure; E03.9 Hypothyroidism, unspecified; I95.9 Hypotension, unspecified; Z87.891 Personal history of nicotine dependence; Z95.5 Presence of coronary angioplasty implant and graft; Z85.819 Personal history of malignant neoplasm of unspecified site of lip, oral cavity, and pharynx; Z79.82 Long term (current) use of aspirin; Z79.52 Long term (current) use of systemic steroids; Z79.84 Long term (current) use of oral hypoglycemic drugs; Z79.85 Long-term (current) use of injectable non-insulin antidiabetic drugs; Z79.1 Long term (current) use of non-steroidal anti-inflammatories (NSAID); Z79.890 Hormone replacement therapy; Z93.0 Tracheostomy status; Z82.49 Family history of ischemic heart disease and other diseases of the circulatory system
CPT/HCPCS: 36415; 36416; 71045; 78452; 80048; 80053; 80061; 82533; 82962; 83036; 83605; 83695; 83735; 83880; 84100; 84145; 84439; 84443; 84481; 84484; 85025; 85347; 85730; 86140; 86141; 92920; 93005; 93017; 93306; 93458; 93931; 94640; 94664; 94760; 94799; 96372; 96374; 96375; 96376; 99152; 99153; A9500; C1725; C1769; C1874; C1887; C1894; C9600; J0360; J1200; J1644; J1650; J1815; J1940; J2250; J2270; J2405; J2785; J3010; J3475; J3490; J7030; J7050; J7613; J7644; P9046; Q9967

== ENCOUNTER → 2024-09-02 14:40 | Outpatient (BNVA) | payer MEDICARE, MEDICAID, SELFPAY | PROVIDERS: PCP Registered Nurse; Visit Provider Nurse Practitioner Family | DX: I25.10 Atherosclerotic heart disease of native coronary artery without angina pectoris (principal); E03.9 Hypothyroidism, unspecified; R07.89 Other chest pain; I10 Essential (primary) hypertension | CPT/HCPCS: 99214 ==

== ENCOUNTER → 2024-11-02 15:15 | Outpatient (BNVA) | payer MEDICAID, SELFPAY | PROVIDERS: PCP Registered Nurse; Visit Provider Internal Medicine Cardiovascular Disease | DX: I73.9 Peripheral vascular disease, unspecified (principal); I10 Essential (primary) hypertension; I25.110 Atherosclerotic heart disease of native coronary artery with unstable angina pectoris; E78.5 Hyperlipidemia, unspecified; Z87.891 Personal history of nicotine dependence | CPT/HCPCS: 99214 ==

== ENCOUNTER 2024-12-12 05:24 | Emergency (ER) | payer MEDICARE, MEDICAID, SELFPAY ==
[2024-12-12 05:35] VITALS: BP 91/43; PULSE 106; RESP 18; TEMP 37.6; O2SAT 90; BMI 41.2
--- NOTE | 2024-12-12 06:05 | XRR_ITS ---
PROCEDURE INFORMATION: Exam: XR Chest Exam date and time: 12/12/2024 6:10 AM Age: 69 years old Clinical indication: Shortness of breath; Prior surgery; Surgery date: 6+ months; Surgery type: Tracheostomy. Coronary stent; C/O SOB. TECHNIQUE: Imaging protocol: Radiologic exam of the chest. Views: 1 view. COMPARISON: CR XR chest 1V portable [id number] 08/15/2024 2:19 PM FINDINGS: Tubes, catheters and devices: Multiple surgical clips again noted in the neck. Lungs: Minimal right basilar atelectasis/pneumonitis. Pleural spaces: Unremarkable. No pleural effusion. No pneumothorax. Heart/Mediastinum: Unremarkable. No cardiomegaly. Bones/joints: Unremarkable. XR/XR chest 1V portable [id number] IMPRESSION: Minimal right basilar atelectasis/pneumonitis.
--- NOTE | 2024-12-12 06:05 | XRR_ITS ---
PROCEDURE INFORMATION: Exam: XR Soft Tissue Neck Exam date and time: 12/12/2024 6:12 AM Age: 69 years old Clinical indication: Other: Possible foreign body; Prior surgery; Surgery date: 6+ months; Patient concerned that a piece of her tracheostomy tube came loose inside ostomy. Ostomy currently open without tube in place. History of throat cancer. ; Additional info: Trach problem TECHNIQUE: Imaging protocol: Radiologic exam of the soft tissues of the neck. COMPARISON: CT neck w con* [id number] 07/12/2022 9:00 AM FINDINGS: Limitations: Quality of examination is limited by body habitus. Tubes, catheters and devices: Numerous surgical clips throughout the neck. No other radiopaque foreign body visualized. Airway: Normal. No abnormal narrowing insofar as visualized. Soft tissues: Grossly unremarkable. Bones/joints: Unremarkable. Other findings: Patient is edentulous. XR/XR soft tissue neck [id number] IMPRESSION: 1. Quality of examination is limited by body habitus. 2. Numerous surgical clips throughout the neck. No other radiopaque foreign body visualized.
--- NOTE | 2024-12-12 06:06 | PC.NURSE ---
pt presents to ed c/o prosthesis of trach needing to be changed. pt says they have seen dr. phoenix but have not had this changed in what seems to be 4 years. it is supposed to be changed every 6-8 mo. pt says it is crooked and making it difficult to eat or drink. pt requesting local doctor to be able to handle this changing instead of going to [place].
--- NOTE | 2024-12-12 06:12 | W.ED.GENADLT ---
HPI - General Adult General: Chief complaint: Airway/Esophagus Foreign Body Stated complaint: SOB hard to breathe prostesis in trach moved? Time Seen by Provider: 12/12/24 06:12 History of Present Illness: 69-year-old female with history of laryngeal cancer has a tracheostomy in place. She moved here evidently from [place]. [facility] she had some sort tracheostomy placed that when they moved here they have been having a difficult time dealing with. Her describes it as something inside of the neck that the external appliance seeds into that does not line up properly anymore. Last 3 days she has had difficulty with eating and drinking. She states she whenever she tries to drink she feels like she is aspirating. No fever sweats or chills. States she has had this before and she sees someone in [place] who helps her with a speech therapist. Associated symptoms: Deny chest pain, dyspnea or rash Related Data Home Medications ?Medication ?Instructions ?Recorded ?Confirmed albuterol sulfate 90 mcg/actuation 2 puff inhalation Q6H PRN Dyspnea 11/21/21 12/12/24 aerosol inhaler carvedilol 6.25 mg tablet 6.25 mg PO BID 11/21/21 12/12/24 dexlansoprazole 60 mg 60 mg PO DAILY 11/21/21 12/12/24 capsule,biphase delayed release (Dexilant) montelukast 10 mg tablet 10 mg PO BEDTIME 11/21/21 12/12/24 calcium carbonate 500 mg PO DAILY 08/15/24 12/12/24 cholecalciferol (vitamin D3) 1,250 50,000 unit PO Q7D 08/15/24 12/12/24 mcg (50,000 unit) capsule dapagliflozin propanediol 10 mg 10 mg PO DAILY 08/15/24 12/12/24 tablet exenatide microspheres 2 mg/0.85 2 mg SUBCUT Q7D 08/15/24 12/12/24 mL subcutaneous auto-injector (App Partner) glipizide 10 mg tablet, extended 10 mg PO DAILY 12/12/24 12/12/24 release 24 hr levothyroxine 150 mcg tablet 150 mcg PO .2XWEEK 12/12/24 12/12/24 levothyroxine 175 mcg tablet 175 mcg PO .5XWEEK 12/12/24 12/12/24 metformin 500 mg tablet 500 mg PO DAILY 12/12/24 12/12/24 paroxetine HCl 20 mg tablet 20 mg PO DAILY 12/12/24 12/12/24 Previous Rx's ?Medication ?Instructions ?Recorded cilostazol 100 mg tablet 100 mg PO BID #180 tabs 05/09/23 nitroglycerin 0.4 mg sublingual 0.4 mg sublingual Q5M PRN chest 06/04/23 tablet pain #25 tabs aspirin 81 mg tablet,delayed 81 mg PO DAILY 30 days #30 tabs 08/21/24 release atorvastatin 40 mg tablet 40 mg PO DAILY #90 tabs 09/04/24 clopidogrel 75 mg tablet 75 mg PO DAILY #90 tabs 09/04/24 lisinopril 5 mg tablet 5 mg PO DAILY #90 tabs 09/04/24 isosorbide mononitrate 30 mg 30 mg PO DAILY #135 tabs 11/02/24 tablet,extended release 24 hr Allergies Allergy/AdvReac Type Severity Reaction Status Date / Time doxycycline Allergy Unknown unknown Verified 11/02/24 15:37 Review of Systems Const: Denies: fever(s) or chills Card: Denies: chest pain Resp: Denies: dyspnea GI: Denies: abdominal pain : Denies: dysuria, urinary frequency or urinary urgency Musc: Denies: neck pain or back pain Skin/Breast: Denies: rash PFSH ED PFSH: Medical History PAD (peripheral artery disease) Diabetes mellitus HTN (hypertension) Throat cancer CAD (coronary artery disease) Hypercholesterolemia Surgical History S/P coronary artery stent placement H/O hernia repair Social History Smoking and tobacco/nicotine status: former use of tobacco/nicotine Physical Exam Const: GENERAL APPEARANCE: cooperative ORIENTATION/CONSCIOUSNESS: Yes awake, Yes oriented to person, Yes oriented to place and Yes oriented to time HENMT: COMMON NORMALS: normocephalic, atraumatic and hearing grossly normal bilaterally HEAD & SCALP: normocephalic and atraumatic OTHER: External tracheostomy appears to be clean with no abnormalities no redness erythema or induration. Resp: COMMON NORMALS: normal respiratory effort, No retractions, No use of accessory muscles and clear to auscultation bilaterally AUSCULTATION: clear to auscultation bilaterally Cardio: COMMON NORMALS: regular rate, regular rhythm and No murmurs present (Cardio) RATE: regular rate RHYTHM: regular rhythm Extremity: COMMON NORMALS: normal to inspection, capillary refill normal, no clubbing, cyanosis or edema, no calf tenderness and no pedal edema Neuro: SENSORIUM/ORIENTATION: Yes oriented to person, Yes oriented to place and Yes oriented to time Skin: COMMON NORMALS: no rashes or lesions noted GENERAL SKIN EXAM: no rashes or lesions noted Course Vital Signs: Vital signs: Vital Signs Temperature 99.6 F 12/12/24 05:35 Pulse Rate 88 12/12/24 08:51 Respiratory Rate 18 12/12/24 06:52 Blood Pressure 155/78 12/12/24 08:51 Pulse Oximetry 90 12/12/24 08:51 Oxygen Delivery Me thod Room Air 12/12/24 06:52 MDM - General Adult Medical Decision Making Looking through her chart she previously had a swallow study and there was some pooling in the hypopharynx it looks like there is a segment of stenotic tissue likely from treatment from her cancer. She tells me that he did do a stretch on that previously to relieve some of her swallowing trouble on an old CT there is a radiopaque compliance that they had referred to is being dislodged but they do not know where it went. It is not present on today's CT but I can see it on the old CT is most easily identifiable in the sagittal planes. She does not have a Ciara tube in place at this time. We replaced the tracheostomy tube we had her try to swallow some liquids that she was able to get them down but it did induce some coughing. The patient states that they have never found anyone that he can deal with this and none of the doctors know how to manage it but that there is a speech therapist that they have personal cell phone number from [place] who is able to manage it. They cannot tell me where her office is they were able to get her on the phone. They relayed from her that if they wanted me to place a 23 Setswana catheter in the defect where this appliance was which is deep to her tracheostomy and not visualized during exam. That I should place the catheter in and the defect if I am able to see it advance to 10 inches then time and not and tape the remainder to the outside of her neck the person on the phone says this will keep her from aspirating through the weekend. We do not have ENT on-call this weekend and I am not comfortable doing a procedure which I am not familiar with and following the advice of a person whom I cannot verify their credentials or expertise. With the nurse present and explained that it would not be able to do this type of procedure in the emergency room at the bedside instead recommend that we transfer her to another emergency room where ENT consultation would be available. They are refusing this. They state that whenever they have gone to the emergency room's in [place] the ear nose and throat doctors do not know how to manage her particular problems that only the speech therapist can manage this issue. They are declining transfer at this time. Instead they are going to go home. They did call the speech therapist after I talked to her and she described to them how to do this procedure themselves at home. Advised the patient that they can return at any point if they have further difficulties we will gladly reevaluate them and transfer as appropriate for definitive specialty care. On her chest x-ray there is a question of atelectasis versus pneumonitis she does not have a white count she has not had any purulent sputum we elected not to start antibiotics at this time. Patient's expressed frustration to the nurse during discharge that we did not follow the directions of the speech therapist he had called to manage this problem. Nurse once again offered transfer for ENT consultation patient and continue to decline. Medical Records I reviewed the patient's medical records. Lab Data I reviewed the patient's lab results. 12/12/24 07:07 12/12/24 07:07 Radiology Impressions Chest X-Ray 12/12/24 06:05 IMPRESSION: Minimal right basilar atelectasis/pneumonitis. Soft Tissue Neck X-Ray 12/12/24 06:05 IMPRESSION: 1. Quality of examination is limited by body habitus. 2. Numerous surgical clips throughout the neck. No other radiopaque foreign body visualized. Neck CT 12/12/24 06:32 IMPRESSION: 1. Postoperative and presumed post radiation changes in the neck as described. 2. Tracheostomy defect without presence of tracheostomy tube currently. Laboratory Results WBC 10.88 10^3/uL (3.29-11.43) 12/12/24 07:07 RBC 4.32 10^6/uL (3.85-5.65) 12/12/24 07:07 Hgb 12.20 g/dL (11.27-16.99) 12/12/24 07:07 Hct 38.8 % (36-47) 12/12/24 07:07 MCV 89.8 fl (85-98) 12/12/24 07:07 MCH 28.2 pg (27-33) 12/12/24 07:07 MCHC 31.4 g/dL (30-55) 12/12/24 07:07 RDW 15.0 % (12.1-15.1) 12/12/24 07:07 Plt Count 250 10^3/cmm (157-399) 12/12/24 07:07 MPV 9.0 fL (7.4-10.4) 12/12/24 07:07 Neut % (Auto) 85.9 % 12/12/24 07:07 Lymph % (Auto) 6.3 % 12/12/24 07:07 Thomas % (Auto) 6.5 % 12/12/24 07:07 Eos % (Auto) 0.5 % 12/12/24 07:07 Baso % (Auto) 0.3 % 12/12/24 07:07 Neut # (Auto) 9.36 10^3/uL (1.8-7.7) H 12/12/24 07:07 Lymph # (Auto) 0.7 10^3/uL (0.8-4.8) L 12/12/24 07:07 Thomas # (Auto) 0.7 10^3/uL (0.2-0.9) 12/12/24 07:07 Eos # (Auto) 0.1 10^3/uL (0.0-0.8) 12/12/24 07:07 Baso # (Auto) 0.0 10^3/uL (0.0-0.1) 12/12/24 07:07 Nucleated RBC % (auto) 0 % 12/12/24 07:07 Nucleated RBCs # 0.0 /100WBC 12/12/24 07:07 Sodium 133 mmol/L (136-145) L 12/12/24 07:07 Potassium 3.5 mmol/L (3.5-5.1) 12/12/24 07:07 Chloride 98 mmol/L (98-107) 12/12/24 07:07 Carbon Dioxide 25 mmol/L (22-29) 12/12/24 07:07 Anion Gap 13.5 (5-19) 12/12/24 07:07 BUN 8 mg/dL (8-23) 12/12/24 07:07 Creatinine 0.6 mg/dL (0.5-0.9) 12/12/24 07:07 GFR Calculation 99.4 mL/min (90-130) 12/12/24 07:07 Glucose 172 mg/dL (65-115) H 12/12/24 07:07 Calculated Osmolality 278 mOsm/kg (285-295) L 12/12/24 07:07 Calcium 9.2 mg/dL (8.5-10.5) 12/12/24 07:07 Total Bilirubin 0.4 mg/dL (0.15-1.2) 12/12/24 07:07 AST 8 U/L (0-32) 12/12/24 07:07 ALT < 5 U/L (0-33) 12/12/24 07:07 Alkaline Phosphatase 68 U/L (35-105) 12/12/24 07:07 Total Protein 7.2 g/dL (6.6-8.7) 12/12/24 07:07 Albumin 3.2 g/dL (3.5-5.2) L 12/12/24 07:07 Globulin 4.0 g/dL (1.3-4.6) 12/12/24 07:07 All radiology interpretation(s) finalized by discharge Discharge Plan Discharge Patient Disposition: Home Clinical Impression: Tracheostomy in place, Tracheostomy complication Condition: Stable Prescriptions: No Action albuterol sulfate 90 mcg/actuation HFA aerosol inhaler 2 puff inhalation Q6H PRN (Reason: Dyspnea) carvedilol 6.25 mg tablet 6.25 mg PO BID Rx Instructions: must administer with a meal/food montelukast 10 mg tablet 10 mg PO BEDTIME Dexilant 60 mg capsule,biphase delayed releas 60 mg PO DAILY atorvastatin 40 mg tablet 40 mg PO DAILY Qty: 90 3RF clopidogrel 75 mg tablet 75 mg PO DAILY Qty: 90 3RF lisinopril 5 mg tablet 5 mg PO DAILY Qty: 90 3RF isosorbide mononitrate 30 mg tablet extended release 24 hr 30 mg PO DAILY Qty: 135 3RF Rx Instructions: take 1 tab in the AM and 1/2 tab in the evening cilostazol 100 mg tablet 100 mg PO BID Qty: 180 1RF nitroglycerin 0.4 mg tablet, sublingual 0.4 mg sublingual Q5M PRN (Reason: chest pain) Qty: 25 6RF Rx Instructions: do not exceed 3 doses per episode Bydureon BCise 2 mg/0.85 mL auto-injector 2 mg SUBCUT Q7D calcium carbonate 500 mg calcium (1,250 mg) Tablet,Chewable 500 mg PO DAILY cholecalciferol (vitamin D3) 1,250 mcg (50,000 unit) capsule 50,000 unit PO Q7D dapagliflozin propanediol 10 mg Tablet 10 mg PO DAILY aspirin 81 mg Tablet,Delayed Release (Dr/Ec) 81 mg PO DAILY 30 Days Qty: 30 0RF metformin 500 mg tablet 500 mg PO DAILY levothyroxine 175 mcg tablet 175 mcg PO .5XWEEK glipizide 10 mg tablet extended release 24hr 10 mg PO DAILY paroxetine HCl 20 mg tablet 20 mg PO DAILY levothyroxine 150 mcg tablet 150 mcg PO .2XWEEK Discharge Orders: Discharge ED (Routine); Ordered 12/12/24 Ordered By: Sukhjinder Thao Referrals: Carolyn Jo MD [Primary Care Provider] - Discharge Diet: As Directed Discharge Activity: Resume usual activity Patient Instructions: Opioid Safety, Pain Management Activity Restrictions/Additional Instructions: Thank you for choosing [facility] for your healthcare needs today. It is very important that you follow up as instructed or that you return to the Emergency Department should you have concerns or if your condition changes or worsens in any way. You were seen in the emergency room for difficulty your tracheostomy. He was expressed concern about a prosthesis that was in the tracheostomy site. It was seen on previous imaging that was done here but is not present on the imaging done today. There was no fistula noted between the trachea and the esophagus on the CT of the neck. The appliance was replaced back in the tracheostomy. With attempts at swallowing you still had some coughing. We had recommended referral to ENT through the emergency room. We do not have any ear nose and throat physician available disaster or damage control specialist to our emergency room at this time. We offered to make arrangements for transfer so you could be seen by an ear nose and throat physician at another emergency room. You declined the offer to transfer at this time. And requested to be discharged. If you have further problems you are welcome to return and we can reassess and make referrals as appropriate. Do recommend you avoid thin liquids until you are seen by your ear nose and throat physician or speech therapist next week. Print Language: Uzbek Coding Level of Care Code ED Process Safety Management Engineer for Shelby Patel
--- NOTE | 2024-12-12 06:32 | CTR_ITS ---
PROCEDURE INFORMATION: Exam: CT Neck Without Contrast Exam date and time: 12/12/2024 6:53 AM Age: 69 years old Clinical indication: Condition or disease; Other: Malfunctioning tracheostomy prosthesis; Prior surgery; Surgery date: 6+ months TECHNIQUE: Imaging protocol: Computed tomography of the neck without contrast. Radiation optimization: All CT scans at this facility use at least one of these dose optimization techniques: automated exposure control; mA and/or kV adjustment per patient size (includes targeted exams where dose is matched to clinical indication); or iterative reconstruction. COMPARISON: CT neck w con* [id number] 07/12/2022 9:00 AM RADIATION DOSE METRICS: Total DLP (mGy-cm): 470.57 FINDINGS: Salivary glands: Normal. Glands are normal in size. Pharynx: Unremarkable. No significant tonsillar enlargement. Larynx: Unremarkable. Epiglottis is normal. Thyroid: Normal. No enlarged or calcified nodules. Trachea: Circumferential wall thickening in the proximal trachea, likely related to radiation. Interval removal of previously seen tracheostomy tube. Tracheostomy defect remains present. Lungs: Unremarkable as visualized. Esophagus: Circumferential wall thickening in proximal esophagus, likely related to radiation. Lymph nodes: Slight interval enlargement of 8 x 9 mm right paratracheal lymph node, nonspecific. Vasculature: Aortic atherosclerotic disease is seen without evidence of aneurysm. Bones/joints: Unremarkable. No acute fracture. Soft tissues: Postoperative changes from laryngectomy and radical neck dissection. CT/CT neck wo con [id number] IMPRESSION: 1. Postoperative and presumed post radiation changes in the neck as described. 2. Tracheostomy defect without presence of tracheostomy tube currently.
[2024-12-12 06:52] VITALS: PULSE 94; RESP 18; O2SAT 90
[2024-12-12 07:11] LABS: Basophils % 0.3 %; Eosinophils # 0.1 10^3/uL (0.0-0.8); Eosinophils % 0.5 %; Hematocrit 38.8 % (36-47); Lymphocytes # 0.7 10^3/uL (0.8-4.8); Lymphocytes % 6.3 %; Mean Corpuscular HGB Conc 31.4 g/dL (30-55); Mean Corpuscular Hemoglobin 28.2 pg (27-33); Mean Corpuscular Volume 89.8 fl (85-98); Monocytes # 0.7 10^3/uL (0.2-0.9); Monocytes % 6.5 %; Neutrophils # 9.36 10^3/uL (1.8-7.7); Neutrophils % 85.9 %; Nucleated Red Blood Cells % 0 %; Platelet Count 250 10^3/cmm (157-399); Red Blood Count 4.32 10^6/uL (3.85-5.65); White Blood Count 10.88 10^3/uL (3.29-11.43)
--- NOTE | 2024-12-12 07:34 | PC.PHAR ---
Addendum entered by Valentine Banda 12/12/24 07:43: dr muller took her off some medications back in August eugenie patel put her back on those same meds in November. added back the meds on to list as its current meds Original Note: patient was last seen here back in august 2024, renzo stopped several medications(refer to 09/06 discharge packet) several of those medications still show up in her external med list since they were filled for 90 days prior to visit. there is metformin that is new and a different strength of levo
[2024-12-12 07:36] LABS: Alanine Aminotransferase < 5 U/L (0-33); Albumin Level 3.2 g/dL (3.5-5.2); Alkaline Phosphatase 68 U/L (35-105); Anion Gap 13.5 (5-19); Aspartate Amino Transferase 8 U/L (0-32); Blood Urea Nitrogen 8 mg/dL (8-23); Calcium 9.2 mg/dL (8.5-10.5); Carbon Dioxide 25 mmol/L (22-29); Chloride 98 mmol/L (98-107); Creatinine Clr Calc Pharmacy 88.6773; Glomerular Filtration Rate 99.4 mL/min (90-130); Glucose 172 mg/dL (65-115); Osmolality Calculated 278 mOsm/kg (285-295); Potassium 3.5 mmol/L (3.5-5.1); Sodium 133 mmol/L (136-145); Total Bilirubin 0.4 mg/dL (0.15-1.2); Total Protein 7.2 g/dL (6.6-8.7)
--- NOTE | 2024-12-12 08:16 | PC.NURSE ---
pt provided sip of water for swallow study, pt was able to swallow, but did cough. Dr. Thao notified.
--- NOTE | 2024-12-12 08:43 | PC.NURSE ---
pt expressed concern to this nurse: pt is using personal cellphone/cell-phone number to communicate with Angie , the pt's ENT. Angie is advising Dr. Thao to place a 20 Lao catheter into pt's trach, tie a knot, and tape to neck to prevent closure. this nurse and Dr. Thao at bedside, Dr. Thao educated not having capability in ER, offered transfer to [place] for ENT, pt and family denied, states they want to see their ENT, Angie, on Saturday. Dr. Thao exited room, upon pt signing papers, pt's family expressed concern again stating Now I have to go home and play doctor when your medical coder should be able to do this . this nurse re-educated pt and pt's family on the situation and offered possible transfer to [place] again, pt and family declined offer and exited ER.
[2024-12-12 08:51] VITALS: BP 155/78; PULSE 88; O2SAT 90
== END 2024-12-12 08:51 | disposition home or self-care (01) ==
PROVIDERS: Emergency Provider Family Medicine; PCP Family Medicine
DX: J95.09 Other tracheostomy complication (principal); Z79.02 Long term (current) use of antithrombotics/antiplatelets; Z87.891 Personal history of nicotine dependence; E11.9 Type 2 diabetes mellitus without complications; I10 Essential (primary) hypertension; I25.10 Atherosclerotic heart disease of native coronary artery without angina pectoris; Z85.21 Personal history of malignant neoplasm of larynx
CPT/HCPCS: 70360; 70490; 71045; 80053; 85025; 99284

== ENCOUNTER → 2025-05-03 15:46 | Outpatient (BNVA) | payer MEDICARE, MEDICAID, SELFPAY | PROVIDERS: PCP Family Medicine; Visit Provider Internal Medicine Cardiovascular Disease | DX: R42 Dizziness and giddiness (principal); I10 Essential (primary) hypertension; Z79.02 Long term (current) use of antithrombotics/antiplatelets; Z79.82 Long term (current) use of aspirin; Z95.5 Presence of coronary angioplasty implant and graft; Z87.891 Personal history of nicotine dependence | CPT/HCPCS: 99214 ==